=== PATIENT | male | born 1950 | race Caucasian/White ===

== ENCOUNTER 2023-06-12 17:39 | Inpatient (IN) | payer OTHER, SELFPAY ==
[2023-06-12] VITALS (48 sets, daily range): BP systolic 73–150; BP diastolic 43–86; PULSE 46–83; RESP 12–27; TEMP 34.8–35.7; O2SAT 82–100; BMI 30.6; BMI 28.0
--- NOTE | 2023-06-12 17:40 | EKG12_ITS ---
Test Reason : RESP. DISTRESS Blood Pressure : / mmHG Vent. Rate : 054 BPM Atrial Rate : 054 BPM P-R Int : 170 ms QRS Dur : 082 ms QT Int : 428 ms P-R-T Axes : 054 076 075 degrees QTc Int : 405 ms Sinus bradycardia Otherwise normal ECG Confirmed by Gregorio Galarza ([id number]), editorial manager OLGA LISA ([id number]) on 06/13/2023 11:00:28 AM Referred By: MANDO Confirmed By:Gregorio Galarza
--- NOTE | 2023-06-12 17:40 | CT_ITS ---
We are attempting to reach an attending provider to discuss findings. An addendum with communication details will be sent when the communication is complete. INDICATION: Neuro deficit, acute, stroke suspected EXAMINATION: CT BRAIN - CT Head Stroke Protocol W/O Contrast Injection TECHNIQUE: Multiple axial images were obtained of the head without intravenous contrast. A radiation dose optimization technique was used for this scan. IV Contrast dosage and agent: None. Radiation Dose (provided by facility) CTDIvol (NA ) mGy, DLP ( NA) mGy-cm COMPARISON: Not available FINDINGS: HEMISPHERES: 1. The cerebral parenchyma, ventricular system, subarachnoid spaces have normal configuration and density. There is a normal gyral pattern. There is normal guo/white differentiation. No midline shift.. 2. There are minimal chronic microvascular deep white matter changes. 3. No intraparenchymal mass, hemorrhage, or acute territorial infarct. CEREBELLUM - BRAINSTEM: The cerebellum, brainstem, basilar and suprasellar cisterns have normal appearance. No Chiari malformation. PITUITARY: Infundibulum and pituitary have normal configuration. Midline structures appear normal. VESSELS: 1. Moderate vascular calcifications throughout the cavernous carotid vessels. 2. No hyperdense vascular signs noted.. ORBITS AND PARANASAL SINUSES: 1. Normal appearance of the bony orbits. Normal appearance of the globes and retrobulbar soft tissues.. 2. Mucosal thickening in ethmoid and maxillary sinuses without air-fluid levels BONY ELEMENTS: Bony elements of the cranial vault, facial skeleton and skull base have normal appearance. SCALP AND SOFT TISSUES: Normal appearance of the soft tissues of the scalp and the visualized face OTHER: None CT/STROKE Brain/Head without Cont IMPRESSION: 1. Minimal chronic microvascular deep white matter changes. 2. No intracranial mass, hemorrhage or acute territorial infarct. 3. Mucosal thickening in the paranasal sinuses without air-fluid levels or nora sinus opacification. CRITICAL REPORT FINDINGS: No intracranial mass, hemorrhage or acute territorial infarct. Electronically Signed: Gagan Harvey MD at 17:55 EST ,
--- NOTE | 2023-06-12 17:41 | CT_ITS ---
INDICATION: Neuro deficit, acute, stroke suspected EXAMINATION: CTA HEAD - CTA Head and Neck Stroke W/ Contrast (and W/O if performed) TECHNIQUE: [place]/head CT angiogram protocol was performed following IV contrast. 3D reconstructions were reviewed. A radiation dose optimization technique was used for this scan. IV Contrast dosage and agent: 100 mL [id number]-[id number] Radiation Dose (provided by facility) CTDIvol (30.62 ) mGy, DLP ( 841.77) mGy-cm COMPARISON: : No relevant prior comparison study available FINDINGS: CTA [place]: PETROUS AND CAVERNOUS CAROTID ARTERIES: Diffuse vascular calcifications in the cavernous carotid vessels. No stenosis occlusion or aneurysmal dilatation. SUPRACLINOID CAROTID ARTERIES: Normal appearance the supraclinoid carotid vessels bilaterally, the visualized ophthalmic arteries have normal appearance. ANTERIOR CEREBRAL AND A- COMM: Normal appearance the proximal and distal segments of the anterior cerebral circulation bilaterally. MIDDLE CEREBRAL ARTERIES: Normal appearance the proximal and distal segments of the middle cerebral circulation bilaterally. Normal appearance of the M4 cortical distribution bilaterally. INTRACRANIAL VERTEBRAL ARTERIES AND BASILAR ARTERY: Normal appearance of the intracranial course of the vertebral arteries bilaterally, normal appearance of basilar artery to the level of the bifurcation. There are scattered calcifications in the vertebral arteries. POSTERIOR CEREBRAL ARTERIES: Normal appearance proximal distal segments of posterior cerebral circulation bilaterally. DURAL SINUSES: Normal, no filling defects noted CT HEAD: The cerebral parenchyma, ventricular system and gyral pattern have normal configuration. No areas of abnormal contrast enhancement. No evidence of hemorrhage given the limitation of postcontrast imaging. CTA Neck: TECHNIQUE: CTA examination of the neck obtained with standard protocol including axial postcontrast imaging with additional planar and three-dimensional reconstructions. Aortic arch: There is mild ectasia of the ascending aorta with transverse dimension estimated at approximately 3.8 cm. No dissection. Diffuse scattered calcifications are present. Normal appearance of the origin of the great vessels. Right carotid system: Moderate soft and calcified plaque at the RIGHT carotid bulb and bifurcation without stenosis or occlusion. Remaining RIGHT CCA and cervical ICA have normal caliber to the level of the skull base. No stenosis noted. Left carotid system: Moderate soft and calcified plaque at the bifurcation and LEFT carotid bulb without stenosis or luminal irregularity or occlusion. The remaining LEFT CCA and ICA have normal appearance. Vertebral arteries: There is normal appearance of the vertebral arteries bilaterally without focal stenosis or occlusion. Scattered calcifications are present without stenosis noted. Airway and soft tissues of the neck: There is normal appearance of the musculofascial planes of suprahyoid and infrahyoid neck. Normal appearance of the visualized airway. Normal appearance the visualized thyroid without masses or nodules noted. Cervical spine: Normal appearance of bony elements of the cervical spine. No focal stenosis or occlusion involving the cervical spinal canal. CT/STROKE CTA Head AND Neck W/Con IMPRESSION: 1. Moderate calcifications noted throughout the cavernous carotid vessels bilaterally. No evidence of stenosis occlusion or aneurysmal dilatation. 2. No CTA evidence of filling defects or LVO. 3. Moderate to extensive calcifications at the carotid bulbs bilaterally without hemodynamically significant stenosis noted in the cervical carotid or vertebral vessels bilaterally. 4. Mild ectasia of the ascending aorta with maximal transverse dimension of 3.7 cm. Electronically Signed: Gagan Harvey MD at 18:19 EST ,
--- NOTE | 2023-06-12 17:42 | ED.VIS.STROK ---
HPI History of Present Illness Chief Complaint: Stroke Alert Informant: EMS Narrative Narrative: Patient was seen acutely in the toney limited exam and history at this time. This patient evidently had a mechanical fall on Sunday. Hit his head but refused to come in. But he was reportedly okay and acting normally about 3:00 today. An hour later his checked on him in bed and he was not really responding. Family thought that he might have a little bit of weakness on the right side of his face. We are trying to get history at this time. We do not have med list past history etc. We then talked with the family more want and met the patient back in room 2. This patient fell on Sunday had a bruise on his head but did not lose consciousness. He had been complaining of some leg pain but was up getting around. But he chose not to go upstairs because it was sore. However, today he did go upstairs and sleep so he must have been doing better per the family. But when he tried to wake him up they could not wake him up. When asked he has been coughing more over the last few days or week. When the family members thoughts that sometimes he looks a little bit guo recently. I do not know if he has had pulmonary or heart issues. He is on blood pressure medicine. No anticoagulation. He has been exposed to agent orange as well as [place]. No information is available from the patient as he is essentially nonverbal. PFSH PFS Home Medications aspirin 81 mg capsule 81 mg PO DAILY 06/12/23 [History Last Taken Unknown] cholecalciferol (vitamin D3) 25 mcg (1,000 unit) capsule (Vitamin D3) 25 mcg PO DAILY 06/12/23 [History Last Taken Unknown] hydrochlorothiazide 12.5 mg tablet 12.5 mg PO DAILY 06/12/23 [History Last Taken Unknown] lisinopril 40 mg tablet 40 mg PO DAILY 06/12/23 [History Last Taken Unknown] metoprolol tartrate 50 mg tablet (Lopressor) 50 mg PO BID 06/12/23 [History Last Taken Unknown] Allergy/AdvReac Type Severity Reaction Status Date / Time No Known Allergies Allergy Verified 06/12/23 17:47 Social History Smoking Status: Current every day smoker tobacco type: cigarettes ROS ROS ED ROS Narrative Very limited history as the patient is nonverbal. Constitutional Constitutional ED: Denies fever(s) Respiratory/Chest Respiratory/Chest: Reports cough, dyspnea and other Details: Looking guo per some family members. Musculoskeletal Musculoskeletal: Reports other Details: Some lower extremity pain since his fall but he has been mobile and walking. Hematologic/Lymphatic Hematologic/Lymphatic: Denies easy bleeding or easy bruising EXAM Physical Exam Narrative Exam Narrative: General: Patient initially seen in triage. He is on O2 mask. He is moving extremities somewhat. But we wanted to expedite care as the report was he had acute onset neurologic deficit with some right facial droop. HEENT: No facial trauma. Mucous membranes are moist. Eyes: Pupils are quite small at 1 to 2 mm. But with a very bright light they do seem to be reactive. Neck is supple. There is no step-off felt. No visible JVD. Heart is regular. Lungs: Very tight. He does appear to have expiratory wheezing. Abdomen is soft. Mildly obese but not grossly distended. No abnormal bruising. Extremities are not showing any bruising or deformity. No pain with range of motion but the patient is not really responsive. Neuro: Really cannot do a good neurologic exam at this time as the patient is overall not responsive. He does withdrawal to some pain. All extremities do move. There is no obvious or gross lateralizing deficit. Const Vital Signs: 06/12/23 17:42 06/12/23 17:50 06/12/23 17:51 Temperature Temperature Source Pulse Rate 75 83 Respiratory Rate 20 H 22 H Respiratory Effort Respiratory Depth Respiratory Pattern Blood Pressure 144/58 H 116/61 Blood Pressure Mean 86 79 Blood Pressure Source Blood Pressure Position Blood Pressure Location Pulse Ox 96 82 Oxygen Delivery Method Non-Rebreather Non-Rebreather Non-Rebreather Fraction of Inspired Oxygen (FIO2) 06/12/23 17:58 06/12/23 18:05 06/12/23 18:00 Temperature 96.3 F L Temperature Source Temporal Pulse Rate 70 Respiratory Rate 14 14 Respiratory Effort Retracting Respiratory Depth Shallow Respiratory Pattern Gasping Blood Pressure 150/86 H Blood Pressure Mean 107 Blood Pressure Source Blood Pressure Position Blood Pressure Location Pulse Ox 100 100 100 Oxygen Delivery Method Mechanical Ventilator Mechanical Ventilator Fraction of Inspired Oxygen (FIO2) 100 100 06/12/23 18:22 06/12/23 18:40 06/12/23 19:00 Temperature Temperature Source Pulse Rate 60 Respiratory Rate 19 H 19 H Respiratory Effort Respiratory Depth Respiratory Pattern Blood Pressure 73/43 L Blood Pressure Mean 53 Blood Pressure Source Blood Pressure Position Blood Pressure Location Pulse Ox 100 96 97 Oxygen Delivery Method Mechanical Ventilator Mechanical Ventilator Fraction of Inspired Oxygen (FIO2) 30 50 50 06/12/23 18:30 06/12/23 18:10 06/12/23 19:08 Temperature Temperature Source Pulse Rate 78 70 57 L Respiratory Rate 15 16 20 H Respiratory Effort Respiratory Depth Respiratory Pattern Normal Blood Pressure Blood Pressure Mean Blood Pressure Source Blood Pressure Position Blood Pressure Location Pulse Ox 82 Oxygen Delivery Method Fraction of Inspired Oxygen (FIO2) 30 06/12/23 19:10 06/12/23 19:15 06/12/23 19:15 Temperature Temperature Source Pulse Rate 60 58 L Respiratory Rate 27 H 24 H Respiratory Effort Respiratory Depth Respiratory Pattern Blood Pressure 79/46 L Blood Pressure Mean 57 Blood Pressure Source Blood Pressure Position Blood Pressure Location Pulse Ox 100 100 98 Oxygen Delivery Method Fraction of Inspired Oxygen (FIO2) 50 06/12/23 19:21 06/12/23 19:30 06/12/23 19:40 Temperature Temperature Source Pulse Rate 57 L 58 L Respiratory Rate 15 16 Respiratory Effort Respiratory Depth Respiratory Pattern Blood Pressure 83/49 L Blood Pressure Mean 62 Blood Pressure Source Blood Pressure Position Blood Pressure Location Pulse Ox 99 95 97 Oxygen Delivery Method Fraction of Inspired Oxygen (FIO2) 06/12/23 19:45 06/12/23 19:50 06/12/23 20:00 Temperature Temperature Source Pulse Rate 56 L 58 L 57 L Respiratory Rate 18 20 H 27 H Respiratory Effort Respiratory Depth Respiratory Pattern Blood Pressure 84/55 L 91/68 Blood Pressure Mean 66 78 Blood Pressure Source Blood Pressure Position Blood Pressure Location Pulse Ox 95 97 82 Oxygen Delivery Method Fraction of Inspired Oxygen (FIO2) 06/12/23 20:15 06/12/23 20:15 06/12/23 20:23 Temperature Temperature Source Pulse Rate 58 L Respiratory Rate 15 Respiratory Effort Respiratory Depth Respiratory Pattern Blood Pressure 121/65 H 121/65 H Blood Pressure Mean 81 81 Blood Pressure Source Blood Pressure Position Blood Pressure Location Pulse Ox Oxygen Delivery Method Fraction of Inspired Oxygen (FIO2) 06/12/23 20:30 06/12/23 21:05 06/12/23 20:20 Temperature Temperature Source Pulse Rate 58 L 57 L 58 L Respiratory Rate 14 13 14 Respiratory Effort Respiratory Depth Respiratory Pattern Normal Blood Pressure 113/59 L Blood Pressure Mean 77 Blood Pressure Source Monitor Blood Pressure Position Semi-Fowlers Blood Pressure Location Right Arm Pulse Ox 94 94 Oxygen Delivery Method Mechanical Ventilator Fraction of Inspired Oxygen (FIO2) 40 06/12/23 21:20 06/12/23 20:30 06/12/23 20:40 Temperature Temperature Source Pulse Rate 55 L 58 L 56 L Respiratory Rate 14 14 14 Respiratory Effort Respiratory Depth Respiratory Pattern Blood Pressure 111/61 96/54 L Blood Pressure Mean 77 68 Blood Pressure Source Blood Pressure Position Blood Pressure Location Pulse Ox 91 95 Oxygen Delivery Method Mechanical Ventilator Fraction of Inspired Oxygen (FIO2) 06/12/23 20:45 06/12/23 20:50 06/12/23 21:00 Temperature Temperature Source Pulse Rate 55 L 57 L Respiratory Rate 13 13 Respiratory Effort Respiratory Depth Respiratory Pattern Blood Pressure 95/61 113/59 L Blood Pressure Mean 73 74 Blood Pressure Source Blood Pressure Position Blood Pressure Location Pulse Ox 94 93 Oxygen Delivery Method Fraction of Inspired Oxygen (FIO2) 06/12/23 21:00 06/12/23 21:00 06/12/23 21:10 Temperature Temperature Source Pulse Rate 57 L 56 L Respiratory Rate 12 13 Respiratory Effort Respiratory Depth Respiratory Pattern Blood Pressure 113/59 L 113/59 L Blood Pressure Mean 74 74 Blood Pressure Source Blood Pressure Position Blood Pressure Location Pulse Ox 93 Oxygen Delivery Method Fraction of Inspired Oxygen (FIO2) 06/12/23 21:15 06/12/23 21:20 06/12/23 21:30 Temperature Temperature Source Pulse Rate 56 L 55 L 56 L Respiratory Rate 14 14 13 Respiratory Effort Respiratory Depth Respiratory Pattern Blood Pressure 110/73 117/63 Blood Pressure Mean 86 79 Blood Pressure Source Blood Pressure Position Blood Pressure Location Pulse Ox 93 Oxygen Delivery Method Fraction of Inspired Oxygen (FIO2) 06/12/23 21:40 06/12/23 21:45 06/12/23 21:50 Temperature Temperature Source Pulse Rate 55 L 46 L 58 L Respiratory Rate 14 14 14 Respiratory Effort Respiratory Depth Respiratory Pattern Blood Pressure 111/61 Blood Pressure Mean 77 Blood Pressure Source Blood Pressure Position Blood Pressure Location Pulse Ox 93 92 Oxygen Delivery Method Fraction of Inspired Oxygen (FIO2) MDM MDM MDM Narrative Medical decision making narrative: Patient's respiratory status rapidly worsened here. He we tried him on Ambu. We could not get him to take deep breaths. This is due to overall global decrease in alertness and function. For this reason we needed to intubate him. He was intubated on first attempt with a 7 and half tube to 24 cm. None being heard over the abdomen. Good breath sounds bilaterally. Good easy Change and good saturations. He will be given DuoNeb treatments through the tube. Postintubation x-ray is pending. patient CBC shows low white count no hemoglobin but there is no old to compare to his indices are all low so there is may have a chronic component. Platelets are normal. Coagulation studies are normal. Electrolytes show mild elevation in creatinine 1.84. Sodium is bit low at 127. Liver function test showing no marked abnormalities. BNP was high at 483. Procalcitonin was normal. Urine showed no marked abnormality. Patient dropped his pressure here significantly. When we had intubated him he was fine. He actually started to wake up and needed significant sedation. Some of this pressure drop could have been due to sedation but he was still fighting against the ventilator a little bit. With his low hemoglobin, hypotension and recent trauma we did scan of his chest abdomen pelvis. There is some signs of contusion but no marked abnormality would explain his symptoms. Nor is there any sign of significant trauma. There is some sign of some bruising. I believe what happened as this patient likely has some COPD and CHF. Will he states he been having more trouble breathing since he had COVID. I think he got CO2 retention that just got out of hand. Cause further hypoventilation and then cause the symptoms. When we got him on the ventilator, we blew off the CO2 and he started to wake up. But he will need to be admitted. He has extensive laboratory abnormalities. He will have to be weaned. We also have very little information about his health care as he really does not share it with the family and we have no records here. Lab Data Attestation: I reviewed the patient's lab results. Labs: Laboratory Results - last 24 hr 06/12/23 06/12/23 06/12/23 16:44 18:07 18:40 WBC 4.2 L RBC 3.10 L Hgb 7.0 L Hct 24.5 L MCV 79.0 L MCH 22.6 L MCHC 28.6 L RDW Std Deviation 49.6 H RDW Coeff of Linda 17.2 H Plt Count 248 MPV 10.1 Immature Gran % (Auto) 0.200 Neut % (Auto) 66.1 Lymph % (Auto) 18.4 L [place] % (Auto) 14.6 H Eos % (Auto) 0.5 Baso % (Auto) 0.2 Absolute Neuts (auto) 2.8 Absolute Lymphs (auto) 0.78 L Nucleated RBC % 0 PT 17.0 H INR 1.4 APTT 35.5 Sodium 127 L Potassium 5.1 Chloride 87 L Carbon Dioxide 32.0 Anion Gap 8 BUN 49 H Creatinine 1.84 H Estim Creat Clear Calc 38.07 Est GFR (MDRD) Af Amer 46 L Est GFR (MDRD) Non-Af 38 L BUN/Creatinine Ratio 26.6 H Glucose 98 Calcium 7.8 L Total Bilirubin 0.30 AST 25 ALT 26 Alkaline Phosphatase 99 Total Creatine Kinase 100 Troponin I High Sens 31 B-Natriuretic Peptide 483.0 H Total Protein 6.0 L Albumin 3.1 L Globulin 2.9 Albumin/Globulin Ratio 1.1 Triglycerides 93 Procalcitonin 0.09 Urine Color Yellow Urine Clarity Cloudy Urine pH 5.0 Ur Specific [place] 1.020 Urine Protein 30 H Urine Glucose (UA) Normal Urine Ketones 5 H Urine Occult Blood 150 H Urine Nitrite Negative Urine Bilirubin Negative Urine Urobilinogen 1 H Ur Leukocyte Esterase 25 H Urine RBC 0-5 SEEN Urine WBC 5-10 SEEN Ur Squamous Epith Cells 5-10 SEEN Urine Bacteria RARE Urine Mucus 0 SEEN Blood Type Antibody Screen Crossmatch 06/12/23 19:00 WBC RBC Hgb Hct MCV MCH MCHC RDW Std Deviation RDW Coeff of [place] Plt Count MPV Immature Gran % (Auto) Neut % (Auto) Lymph % (Auto) [place] % (Auto) Eos % (Auto) Baso % (Auto) Absolute Neuts (auto) Absolute Lymphs (auto) Nucleated RBC % PT INR APTT Sodium Potassium Chloride Carbon Dioxide Anion Gap BUN Creatinine Estim Creat Clear Calc Est GFR (MDRD) Af Amer Est GFR (MDRD) Non-Af BUN/Creatinine Ratio Glucose Calcium Total Bilirubin AST ALT Alkaline Phosphatase Total Creatine Kinase Troponin I High Sens B-Natriuretic Peptide Total Protein Albumin Globulin Albumin/Globulin Ratio Triglycerides Procalcitonin Urine Color Urine Clarity Urine pH Ur Specific [place] Urine Protein Urine Glucose (UA) Urine Ketones Urine Occult Blood Urine Nitrite Urine Bilirubin Urine Urobilinogen Ur Leukocyte Esterase Urine RBC Urine WBC Ur Squamous Epith Cells Urine Bacteria Urine Mucus Blood Type O POSITIVE Antibody Screen NEGATIVE Crossmatch See Detail ABG Data ABG results: ABG 06/12/23 18:13 Specimen Type ART Sample Site Not entered pH 7.31 L Bicarbonate Actual 34.2 H Total CO2 36 Base Excess 8 H O2 Saturation 100 H O2 % 15.0 ABG pCO2 68.0 H* ABG pO2 487 H* O2 Delivery Device Bagging Vent Mode Not entered Crit Call To/Read Back Yes Blood Gas Notified Whom [email or web address] Blood Gas Notified Time 18:15:16 Radiography Diagnostic Testing: Clinical Impression(s) from Imaging Studies Brain CT 06/12/23 17:40 IMPRESSION: 1. Minimal chronic microvascular deep white matter changes. 2. No intracranial mass, hemorrhage or acute territorial infarct. 3. Mucosal thickening in the paranasal sinuses without air-fluid levels or nora sinus opacification. CRITICAL REPORT FINDINGS: No intracranial mass, hemorrhage or acute territorial infarct. Electronically Signed: Gagan Harvey MD at 17:55 EST , ADDENDUM: 06/12/23 1814 IMPRESSION: 1. Minimal chronic microvascular deep white matter changes. 2. No intracranial mass, hemorrhage or acute territorial infarct. 3. Mucosal thickening in the paranasal sinuses without air-fluid levels or nora sinus opacification. CRITICAL REPORT FINDINGS: No intracranial mass, hemorrhage or acute territorial infarct. N.B. : The above Results were Read Back by Gagan Harvey MD to Paz Hernandez RN, and understanding confirmed on 06/12/2023 18:07:25 (ET). Electronically Signed: Gagan Harvey MD at 17:55 EST , Head/Neck CTA 06/12/23 17:41 IMPRESSION: 1. Moderate calcifications noted throughout the cavernous carotid vessels bilaterally. No evidence of stenosis occlusion or aneurysmal dilatation. 2. No CTA evidence of filling defects or LVO. 3. Moderate to extensive calcifications at the carotid bulbs bilaterally without hemodynamically significant stenosis noted in the cervical carotid or vertebral vessels bilaterally. 4. Mild ectasia of the ascending aorta with maximal transverse dimension of 3.7 cm. Electronically Signed: Gagan Harvey MD at 18:19 EST , Chest X-Ray 06/12/23 18:32 IMPRESSION: 1. Status post intubation and nasogastric tube placement. 2. No active pulmonary disease. Electronically Signed: Harley Castillo MD at 18:44 EST , Chest/Abdomen/Pelvis CT 06/12/23 20:00 IMPRESSION: 1. Asymmetric anterior right lower chest and upper abdomen, subcutaneous stranding density may represent soft tissue contusion. No other evidence of acute traumatic injury chest, abdomen or pelvis solid or hollow viscus organs or osseous structures. 2. Small right pleural effusion and bilateral posterior dependent intralobular septal thickening and peribronchial thickening suggesting interstitial edema. Correlate for decreased heart function and/or possible volume overload. 3. Renal excretion of contrast with no reported intravenous contrast administration may represent delayed contrast excretion from prior contrasted dose. Correlate clinically. 4. Single gallstone with questionable gallbladder wall thickening. Correlate clinically and consider right upper quadrant ultrasound. 5. Significant abdominal aortic and branch vessel atherosclerosis. Electronically Signed: Gregorio Tello DO at 21:28 EST , Critical Care Time Critical Care Time: Yes Critical care time (excluding procedures): 30-74 minutes, Discussing w/Patient &/or Family/Credit Collections Analyst, Discussing w/Consultants, Arranging Admission or Transfer, Performing Direct Patient Care at Bedside and - (60 minutes, multiple reevaluations, arranging admission, reviewing studies labs) Discharge Plan Triage Chief Complaint: Stroke Alert ED Provider: Sarath Sosa Dx/Rx/DC Orders Clinical Impression: Creatinine elevation, Fall at home, Anemia, Respiratory failure, Hypotension, Airway intubation performed without difficulty Prescriptions: No Action metoprolol tartrate [Lopressor] 50 mg tablet 50 mg PO BID lisinopril 40 mg tablet 40 mg PO DAILY hydrochlorothiazide 12.5 mg tablet 12.5 mg PO DAILY aspirin 81 mg capsule 81 mg PO DAILY cholecalciferol (vitamin D3) [Vitamin D3] 25 mcg (1,000 unit) capsule 25 mcg PO DAILY [facility] [Primary Care Provider] - Disposition Disposition: Acute Care Hospital [facility]
--- NOTE | 2023-06-12 17:44 | NURSING ---
1724 STROKE ALERT CALLED PRIOR TO ARRIVAL
--- NOTE | 2023-06-12 17:47 | NURSING ---
NO OLD EKGS
[2023-06-12] MEDS: Etomidate 20 MG/10 ML Vial IV (17:58)
[2023-06-12] MEDS: Succinylcholine Chloride 200 MG/10 ML Vial 120 MG IV (17:59)
[2023-06-12] MEDS: Propofol 10MG/Ml 1,000 MG/100 ML Bottle 5.5 MG CONT INF (18:00)
[2023-06-12] MEDS: Ipratropium/Albuterol Sulfate 3 ML AMPUL.NEB INHALATION (18:10)
[2023-06-12 18:17] LABS: Base Excess 8 mmol/L (-2 to +2); Bicarbonate 34.2 mmol/L (22-26); Blood Gas Specimen Type ART; Mode Not entered; O2 Delivery Device Bagging; PO2 487 mmHG (75-100); SITE Not entered; SO2 100 % (95-99); Time Given 18:15:16; Total Carbon Dioxide 36 mmol/L; pH 7.31 (7.35-7.45)
[2023-06-12 18:19] LABS: Absolute Lymphocyte Count 0.78 X10^3/uL (0.83-4.51); Absolute Neutrophil Count 2.8 X10^3/uL (2.0-7.7); Basophil# 0.01 X10^3/uL; Basophil% 0.2 % (0-1); Eosinophil# 0.02 X10^3/uL; Eosinophils% 0.5 % (0-5); Hematocrit 24.5 % (40-54); Lymphocyte # 0.78 X10^3/ul (0.83-4.51); Lymphocyte % 18.4 % (19-41); Mean Corp Hgb Conc 28.6 g/dL (32-36); Mean Corpuscular Hgb 22.6 pg (27.0-32.0); Mean Platelet Vol. 10.1 fl (6.2-12.0); Monocyte# 0.62 X10^3/uL; Monocyte% 14.6 % (0-10); NRBC Flagged by Analyzer 0 % (0-5); Neutrophil % 66.1 % (47-70); Platelet Count 248 K/mm3 (150-450); RBC Distribution Width CV 17.2 % (11.6-14.6); RBC Distribution Width SD 49.6 fl (35.1-43.9); White Blood Count 4.2 K/mm3 (4.4-11.0)
--- NOTE | 2023-06-12 18:32 | RAD_ITS ---
INDICATION: Neuro deficit, acute, stroke suspected EXAMINATION/TECHNIQUE: X-RAY - XR Chest 1 View COMPARISON: No relevant prior comparison study available FINDINGS: LINES/DEVICES: Endotracheal tube with its tip approximately 7.7 cm proximal to the rafia. Nasogastric tube extends below the level of the diaphragm but the tip is not included on this exam. The sidehole is just within the gastric fundus. LUNGS: No consolidation, edema or effusion. No pneumothorax. MEDIASTINUM AND CARDIOVASCULAR STRUCTURES: Cardiac silhouette not enlarged. Central airways and mediastinal contour are unremarkable. BONES AND SOFT TISSUES: Unremarkable. RAD/Chest 1 View IMPRESSION: 1. Status post intubation and nasogastric tube placement. 2. No active pulmonary disease. Electronically Signed: Harley Castillo MD at 18:44 EST ,
[2023-06-12 18:34] LABS: ALB/GLOB Ratio 1.1 RATIO (0.9-2.4); AST(SGOT) 25 U/L (15-37); Alanine Aminotransfer ALT/SGPT 26 U/L (16-61); Albumin, Serum 3.1 g/dL (3.2-5.0); Alkaline Phosphatase 99 U/L (45-117); Anion Gap 8 (5-15); BUN 49 mg/dL (7-18); BUN/Creat Ratio 26.6 RATIO (10-20); Calcium,Total 7.8 mg/dL (8.5-10.1); Chloride 87 mmol/L (98-107); Creatinine, Serum 1.84 mg/dL (0.70-1.30); EST Glomerular Filtration Rate 38 mL/min (>60); Est Glom Filt Rate - Afr Amer 46 mL/min (>60); Estimated Creatinine Clearance 38.07 ml/min; Globulin 2.9 g/dL (2.2-4.2); Glucose 98 mg/dL (74-106); Potassium 5.1 mmol/L (3.5-5.1); Sodium Level 127 mmol/L (136-145); Troponin-I HS 31 pg/mL (3.0-78.0)
[2023-06-12 18:35] LABS: Partial Thromboplast Time 35.5 Seconds (24.1-36.2)
[2023-06-12 18:39] LABS: International Normalized Ratio 1.4
[2023-06-12 18:48] LABS: Mucous, Urine 0 SEEN /hpf (<or=2+)
[2023-06-12 18:51] LABS: Color, Urine Yellow (Yellow); Glucose, Dipstick Normal (Normal); Ketone-Dipstick 5 mg/dl (Negative); Leukocyte Esterase-Dipstick 25 /ul (Negative); Nitrite-Dipstick Negative (Negative); Occult Blood-Urine 150 /ul (Negative); Protein-Dipstick 30 mg/dl (Negative); Urine Bilirubin Dipstick Negative (Negative); Urine Clarity Cloudy (Clear); Urine Urobilinogen 1 mg/dl (Normal)
[2023-06-12 18:56] LABS: CPK Total, Creatine Kinase 100 U/L (39-308); Triglycerides 93 mg/dL
[2023-06-12] MEDS: fentaNYL drip 100 ML 5 MCG CONT INF (18:58)
[2023-06-12 19:06] LABS: White Blood Cells 5-10 SEEN /hpf (0-5)
[2023-06-12 19:07] LABS: Bacteria RARE /hpf (None Seen); Red Blood Cells-Urine 0-5 SEEN /hpf (0-5); Squamous Epithelial Cells - UA 5-10 SEEN /hpf (0-5)
--- NOTE | 2023-06-12 19:10 | ED.RN ---
ok to dc [facility] per dr hernandez
[2023-06-12] MEDS: 0.9% Normal Saline (1000mL) 1,000 ML 999 ML IV (19:15)
[2023-06-12 19:24] LABS: Procalcitonin 0.09 ng/mL (0.00-0.09)
--- NOTE | 2023-06-12 20:00 | CT_ITS ---
INDICATION: trauma EXAMINATION: CT CHEST, ABDOMEN AND PELVIS WITHOUT CONTRAST TECHNIQUE: Helically acquired images were obtained of the chest, abdomen and pelvis. A radiation dose optimization technique was used for this scan. IV Contrast dosage and agent: No intravenous contrast reported. Oral contrast: None. COMPARISON: CT angiography head and neck. Chest x-ray June 12, 2022. FINDINGS: ----Chest: Endotracheal tube and enteric tube, well-positioned. No central venous catheter visible. Right lower chest and upper abdomen subcutaneous asymmetric subcutaneous stranding density may represent contusion. No focal fluid collection. LUNGS, PLEURA AND LARGE AIRWAYS: Small layering right pleural effusion. There is right greater left, bilateral intralobular septal thickening and mild peribronchial thickening favored to represent interstitial edema, likely cardiogenic etiology. No pleural effusion or thickening. No pneumothorax. THYROID: No thyroid lesions. HEART AND PERICARDIUM: No significant enlargement. No pericardial effusion. Extensive coronary artery calcifications and/or stents. VESSELS: 4.7 cm diameter descending thoracic aorta measurement may be falsely elevated due to motion. MEDIASTINUM AND VIANEY: No mediastinal or hilar adenopathy. Esophagus is unremarkable. No hiatal hernia. BONES: No lytic or blastic abnormality. No fracture or focal malalignment. ----Abdomen/Pelvis: LIVER: Homogeneous. No focal mass. GALLBLADDER AND BILIARY TREE: Single stone, 4 mm in the neck of the gallbladder. Questionable mild gallbladder wall thickening. Consider correlation with ultrasound. No intra- or extrahepatic biliary ductal dilation. PANCREAS: No focal cystic or solid mass. [] SPLEEN: Normal size without focal cystic or solid mass. ADRENAL GLANDS: No nodules. KIDNEYS AND URETERS: Homogenous enhancement bilateral kidneys with excretion through the ureters and into the bladder with Portillo catheter in place. There is bladder wall thickening that may be partially due to collapse bladder. Cystitis less likely. Renal opacification may represent delayed excretion of previously given intravenous contrast. Correlate clinically. There is significant bilateral perinephric stranding, nonspecific finding typically seen in elderly patients. No focal fluid collection. PERITONEUM: No ascites or free air. No other fluid collection. BOWEL: No evidence of acute appendicitis. No stomach or bowel distension. No focal inflammatory change. LYMPH NODES: No enlarged mesenteric or retroperitoneal lymph nodes. VESSELS: Significant abdominal aortic and branch vessel calcifications especially involving the no artery ostia and splenic artery. REPRODUCTIVE ORGANS: No pelvic masses. No significant prostate enlargement. There is incompletely visualized, at least 4.4 cm focal fluid the right hemiscrotum. ABDOMINAL WALL: Small bilateral fat filled inguinal hernias are present. BONES: No lytic or blastic abnormality. No fracture or focal malalignment. Degenerative disc and endplate changes throughout the lumbar spine, most notably at L4-5 and L5-S1. There is at least a small posterior disc herniation at L4-5 and facet hypertrophy appears to result in at least moderate central spinal canal stenosis. CT/CT Chest, Abd, Pelvis WO Cont IMPRESSION: 1. Asymmetric anterior right lower chest and upper abdomen, subcutaneous stranding density may represent soft tissue contusion. No other evidence of acute traumatic injury chest, abdomen or pelvis solid or hollow viscus organs or osseous structures. 2. Small right pleural effusion and bilateral posterior dependent intralobular septal thickening and peribronchial thickening suggesting interstitial edema. Correlate for decreased heart function and/or possible volume overload. 3. Renal excretion of contrast with no reported intravenous contrast administration may represent delayed contrast excretion from prior contrasted dose. Correlate clinically. 4. Single gallstone with questionable gallbladder wall thickening. Correlate clinically and consider right upper quadrant ultrasound. 5. Significant abdominal aortic and branch vessel atherosclerosis. Electronically Signed: Gregorio Tello DO at 21:28 EST ,
--- NOTE | 2023-06-12 22:51 | HP.PCM.HOS_ITS ---
HPI - General General Date of Admission: 06/12/23 Date of Service: 06/12/23 Chief Complaint: SOB and Lethargy. 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 ER with SOB and lethargy. Mr. Muñiz was intubated shortly a fter arrival so information was gathered from chart, medical staff and computer. According to the records he was last known normal around 15:00 hours and then about an hour later his went to check in on him and found him unresponsive. His family also thought he looked like his Right face was drooping so they presumed he might be having a stroke. The ER physician was informed that he had fallen and his his head this past Thursday, June 08, 2023, but he refused to come in for further evaluation and treatment at that time. He did complain of some residual leg pain but was still able to get up and around. His family stated he had been coughing more over the past few days and that he appeared more guo over the past week. In the ER he was diagnosed with AE COPD with toxic encephalopathy due to CO2 Narcosis with acute hypoxic / hypercapnic respiratory failure requiring intubation with head CT negative for acute pathologic changes and low-index of suspicion for stroke with patient waking up shortly after being intubated requiring sedation complicated by mild hyponatremia of 127 mmol/L present on admission and he was then admitted to the ICU for ongoing care for a stay that is expected to be greater than 48 hours. [facility] Home Medications aspirin 81 mg capsule 81 mg PO DAILY 06/12/23 [History Last Taken Unknown] cholecalciferol (vitamin D3) 25 mcg (1,000 unit) capsule (Vitamin D3) 25 mcg PO DAILY 06/12/23 [History Last Taken Unknown] hydrochlorothiazide 12.5 mg tablet 12.5 mg PO DAILY 06/12/23 [History Last Taken Unknown] lisinopril 40 mg tablet 40 mg PO DAILY 06/12/23 [History Last Taken Unknown] metoprolol tartrate 50 mg tablet (Lopressor) 50 mg PO BID 06/12/23 [History Last Taken Unknown] Allergy/AdvReac Type Severity Reaction Status Date / Time No Known Allergies Allergy Verified 06/12/23 17:47 Social History Smoking Status: Current every day smoker tobacco type: cigarettes ROS ROS Narrative ROS could not be completed because patient is intubated and sedated. Review of Systems ROS Unobtainable: due to encephalopathy Vital Signs Vital Signs Vital Signs: 06/12/23 17:42 06/12/23 17:50 06/12/23 17:51 Temperature Temperature Source Pulse Rate 75 83 Respiratory Rate 20 H 22 H Respiratory Effort Respiratory Depth Respiratory Pattern Blood Pressure 144/58 H 116/61 Blood Pressure Mean 86 79 Blood Pressure Source Blood Pressure Position Blood Pressure Location Pulse Ox 96 82 Oxygen Delivery Method Non-Rebreather Non-Rebreather Non-Rebreather Fraction of Inspired Oxygen (FIO2) 06/12/23 17:58 06/12/23 18:05 06/12/23 18:00 Temperature 96.3 F L Temperature Source Temporal Pulse Rate 70 Respiratory Rate 14 14 Respiratory Effort Retracting Respiratory Depth Shallow Respiratory Pattern Gasping Blood Pressure 150/86 H Blood Pressure Mean 107 Blood Pressure Source Blood Pressure Position Blood Pressure Location Pulse Ox 100 100 100 Oxygen Delivery Method Mechanical Ventilator Mechanical Ventilator Fraction of Inspired Oxygen (FIO2) 100 100 06/12/23 18:22 06/12/23 18:40 06/12/23 19:00 Temperature Temperature Source Pulse Rate 60 Respiratory Rate 19 H 19 H Respiratory Effort Respiratory Depth Respiratory Pattern Blood Pressure 73/43 L Blood Pressure Mean 53 Blood Pressure Source Blood Pressure Position Blood Pressure Location Pulse Ox 100 96 97 Oxygen Delivery Method Mechanical Ventilator Mechanical Ventilator Fraction of Inspired Oxygen (FIO2) 30 50 50 06/12/23 18:30 06/12/23 18:10 06/12/23 19:08 Temperature Temperature Source Pulse Rate 78 70 57 L Respiratory Rate 15 16 20 H Respiratory Effort Respiratory Depth Respiratory Pattern Normal Blood Pressure Blood Pressure Mean Blood Pressure Source Blood Pressure Position Blood Pressure Location Pulse Ox 82 Oxygen Delivery Method Fraction of Inspired Oxygen (FIO2) 30 06/12/23 19:10 06/12/23 19:15 06/12/23 19:15 Temperature Temperature Source Pulse Rate 60 58 L Respiratory Rate 27 H 24 H Respiratory Effort Respiratory Depth Respiratory Pattern Blood Pressure 79/46 L Blood Pressure Mean 57 Blood Pressure Source Blood Pressure Position Blood Pressure Location Pulse Ox 100 100 98 Oxygen Delivery Method Fraction of Inspired Oxygen (FIO2) 50 06/12/23 19:21 06/12/23 19:30 06/12/23 19:40 Temperature Temperature Source Pulse Rate 57 L 58 L Respiratory Rate 15 16 Respiratory Effort Respiratory Depth Respiratory Pattern Blood Pressure 83/49 L Blood Pressure Mean 62 Blood Pressure Source Blood Pressure Position Blood Pressure Location Pulse Ox 99 95 97 Oxygen Delivery Method Fraction of Inspired Oxygen (FIO2) 06/12/23 19:45 06/12/23 19:50 06/12/23 20:00 Temperature Temperature Source Pulse Rate 56 L 58 L 57 L Respiratory Rate 18 20 H 27 H Respiratory Effort Respiratory Depth Respiratory Pattern Blood Pressure 84/55 L 91/68 Blood Pressure Mean 66 78 Blood Pressure Source Blood Pressure Position Blood Pressure Location Pulse Ox 95 97 82 Oxygen Delivery Method Fraction of Inspired Oxygen (FIO2) 06/12/23 20:15 06/12/23 20:15 06/12/23 20:23 Temperature Temperature Source Pulse Rate 58 L Respiratory Rate 15 Respiratory Effort Respiratory Depth Respiratory Pattern Blood Pressure 121/65 H 121/65 H Blood Pressure Mean 81 81 Blood Pressure Source Blood Pressure Position Blood Pressure Location Pulse Ox Oxygen Delivery Method Fraction of Inspired Oxygen (FIO2) 06/12/23 20:30 06/12/23 21:05 06/12/23 20:20 Temperature Temperature Source Pulse Rate 58 L 57 L 58 L Respiratory Rate 14 13 14 Respiratory Effort Respiratory Depth Respiratory Pattern Normal Blood Pressure 113/59 L Blood Pressure Mean 77 Blood Pressure Source Monitor Blood Pressure Position Semi-Fowlers Blood Pressure Location Right Arm Pulse Ox 94 94 Oxygen Delivery Method Mechanical Ventilator Fraction of Inspired Oxygen (FIO2) 40 06/12/23 21:20 06/12/23 20:30 06/12/23 20:40 Temperature Temperature Source Pulse Rate 55 L 58 L 56 L Respiratory Rate 14 14 14 Respiratory Effort Respiratory Depth Respiratory Pattern Blood Pressure 111/61 96/54 L Blood Pressure Mean 77 68 Blood Pressure Source Blood Pressure Position Blood Pressure Location Pulse Ox 91 95 Oxygen Delivery Method Mechanical Ventilator Fraction of Inspired Oxygen (FIO2) 06/12/23 20:45 06/12/23 20:50 06/12/23 21:00 Temperature Temperature Source Pulse Rate 55 L 57 L Respiratory Rate 13 13 Respiratory Effort Respiratory Depth Respiratory Pattern Blood Pressure 95/61 113/59 L Blood Pressure Mean 73 74 Blood Pressure Source Blood Pressure Position Blood Pressure Location Pulse Ox 94 93 Oxygen Delivery Method Fraction of Inspired Oxygen (FIO2) 06/12/23 21:00 02/13/24 21:00 06/12/23 21:10 Temperature Temperature Source Pulse Rate 57 L 56 L Respiratory Rate 12 13 Respiratory Effort Respiratory Depth Respiratory Pattern Blood Pressure 113/59 L 113/59 L Blood Pressure Mean 74 74 Blood Pressure Source Blood Pressure Position Blood Pressure Location Pulse Ox 93 Oxygen Delivery Method Fraction of Inspired Oxygen (FIO2) 06/12/23 21:15 06/12/23 21:20 06/12/23 21:30 Temperature Temperature Source Pulse Rate 56 L 55 L 56 L Respiratory Rate 14 14 13 Respiratory Effort Respiratory Depth Respiratory Pattern Blood Pressure 110/73 117/63 Blood Pressure Mean 86 79 Blood Pressure Source Blood Pressure Position Blood Pressure Location Pulse Ox 93 Oxygen Delivery Method Fraction of Inspired Oxygen (FIO2) 06/12/23 21:40 06/12/23 21:45 06/12/23 21:50 Temperature Temperature Source Pulse Rate 55 L 46 L 58 L Respiratory Rate 14 14 14 Respiratory Effort Respiratory Depth Respiratory Pattern Blood Pressure 111/61 Blood Pressure Mean 77 Blood Pressure Source Blood Pressure Position Blood Pressure Location Pulse Ox 93 92 Oxygen Delivery Method Fraction of Inspired Oxygen (FIO2) Weight Weight: 201 lb 8.04 oz Body Mass Index (BMI) 30.6 Physical Exam Const Constitutional Narrative: Patient is intubated and sedated. HEENT normocephalic, head/scalp atraumatic and hearing grossly normal bilaterally HEENT Narrative: ETT in place. Eyes PERRL and EOMs intact bilaterally Neck no lymphadenopathy and supple Resp Resp Narrative: Diminished breath sounds throughout. Cardio regular rate and regular rhythm GI normal to inspection, nondistended, normoactive bowel sounds, soft to palpation, non-tender and non-distended Extremity normal to inspection and full ROM Skin Skin Narrative: Patient has no evidence of rash at this time. Neuro Neuro Narrative: Patient is sedated and intubated. Psych Psych Narrative: Patient is sedated and intubated. Results Medical Records Data Attestation: I reviewed the patient's medical records Lab / Micro Data Attestation: I reviewed the patient's lab results. 06/12/23 18:07 06/12/23 18:07 Labs: Laboratory Results - last 24 hr 06/12/23 16:44: Procalcitonin 0.09 06/12/23 18:07: WBC 4.2 L, RBC 3.10 L, Hgb 7.0 L, Hct 24.5 L, MCV 79.0 L, MCH 22.6 L, MCHC 28.6 L, RDW Std Deviation 49.6 H, RDW Coeff of [place] 17.2 H, Plt Count 248, MPV 10.1, Immature Gran % (Auto) 0.200, Neut % (Auto) 66.1, Lymph % (Auto) 18.4 L, [place] % (Auto) 14.6 H, Eos % (Auto) 0.5, Baso % (Auto) 0.2, Absolute Neuts (auto) 2.8, Absolute Lymphs (auto) 0.78 L, Nucleated RBC % 0, PT 17.0 H, INR 1.4, APTT 35.5, Sodium 127 L, Potassium 5.1, Chloride 87 L, Carbon Dioxide 32.0, Anion Gap 8, BUN 49 H, Creatinine 1.84 H, Estim Creat Clear Calc 38.07, Est GFR (MDRD) Af Amer 46 L, Est GFR (MDRD) Non-Af 38 L, BUN/Creatinine Ratio 26.6 H, Glucose 98, Calcium 7.8 L, Total Bilirubin 0.30, AST 25, ALT 26, Alkaline Phosphatase 99, Total Creatine Kinase 100, Troponin I High Sens 31, B- Natriuretic Peptide 483.0 H, Total Protein 6.0 L, Albumin 3.1 L, Globulin 2.9, Albumin/Globulin Ratio 1.1, Triglycerides 93 06/12/23 18:40: Urine Color Yellow, Urine Clarity Cloudy, Urine pH 5.0, Ur Specific [place] 1.020, Urine Protein 30 H, Urine Glucose (UA) Normal, Urine Ketones 5 H, Urine Occult Blood 150 H, Urine Nitrite Negative, Urine Bilirubin Negative, Urine Urobilinogen 1 H, Ur Leukocyte Esterase 25 H, Urine RBC 0-5 SEEN, Urine WBC 5-10 SEEN, Ur Squamous Epith Cells 5-10 SEEN, Urine Bacteria RARE, Urine Mucus 0 SEEN 06/12/23 19:00: Blood Type O POSITIVE, Antibody Screen NEGATIVE, Crossmatch See Detail Micro: Microbiology 06/12/23 18:37 Mucosa - Nasopharyngeal SARS-CoV-2, Influenza & RSV (PCR) - Final ABG Data ABG results: ABG 06/12/23 18:13 Specimen Type ART Sample Site Not entered pH 7.31 L Bicarbonate Actual 34.2 H Total CO2 36 Base Excess 8 H O2 Saturation 100 H O2 % 15.0 ABG pCO2 68.0 H* ABG pO2 487 H* O2 Delivery Device Bagging Vent Mode Not entered Crit Call To/Read Back Yes Blood Gas Notified Whom mary Blood Gas Notified Time 18:15:16 Imaging Radiology Impression Brain CT 06/12/23 17:40 IMPRESSION: 1. Minimal chronic microvascular deep white matter changes. 2. No intracranial mass, hemorrhage or acute territorial infarct. 3. Mucosal thickening in the paranasal sinuses without air-fluid levels or nora sinus opacification. CRITICAL REPORT FINDINGS: No intracranial mass, hemorrhage or acute territorial infarct. Electronically Signed: Gagan Harvey MD at 17:55 EST , ADDENDUM: 06/12/23 1814 IMPRESSION: 1. Minimal chronic microvascular deep white matter changes. 2. No intracranial mass, hemorrhage or acute territorial infarct. 3. Mucosal thickening in the paranasal sinuses without air-fluid levels or nora sinus opacification. CRITICAL REPORT FINDINGS: No intracranial mass, hemorrhage or acute territorial infarct. N.B. : The above Results were Read Back by Gagan Harvey MD to Paz Hernandez RN, and understanding confirmed on 06/12/2023 18:07:25 (ET). Electronically Signed: Gagan Harvey MD at 17:55 EST , Head/Neck CTA 06/12/23 17:41 IMPRESSION: 1. Moderate calcifications noted throughout the cavernous carotid vessels bilaterally. No evidence of stenosis occlusion or aneurysmal dilatation. 2. No CTA evidence of filling defects or LVO. 3. Moderate to extensive calcifications at the carotid bulbs bilaterally without hemodynamically significant stenosis noted in the cervical carotid or vertebral vessels bilaterally. 4. Mild ectasia of the ascending aorta with maximal transverse dimension of 3.7 cm. Electronically Signed: Gagan Harvey MD at 18:19 EST , Chest X-Ray 06/12/23 18:32 IMPRESSION: 1. Status post intubation and nasogastric tube placement. 2. No active pulmonary disease. Electronically Signed: Harley Castillo MD at 18:44 EST , Chest/Abdomen/Pelvis CT 06/12/23 20:00 IMPRESSION: 1. Asymmetric anterior right lower chest and upper abdomen, subcutaneous stranding density may represent soft tissue contusion. No other evidence of acute traumatic injury chest, abdomen or pelvis solid or hollow viscus organs or osseous structures. 2. Small right pleural effusion and bilateral posterior dependent intralobular septal thickening and peribronchial thickening suggesting interstitial edema. Correlate for decreased heart function and/or possible volume overload. 3. Renal excretion of contrast with no reported intravenous contrast administration may represent delayed contrast excretion from prior contrasted dose. Correlate clinically. 4. Single gallstone with questionable gallbladder wall thickening. Correlate clinically and consider right upper quadrant ultrasound. 5. Significant abdominal aortic and branch vessel atherosclerosis. Electronically Signed: Gregorio Tello DO at 21:28 EST , Assessment & Plan Assessment/Plan (1) Acute exacerbation of COPD with asthma: (2) Acute hypoxic respiratory failure: (3) Hyponatremia: (4) Anemia: QUALIFIERS: Anemia type: unspecified type Qualified Code(s): D64.9 - Anemia, unspecified PLAN: Plan 1. AE COPD; with severe CO2 Narcosis - Admit to ICU. Continue vent support and consult material attendant to see patient on-rounds in the AM with help appreciated in advance. Give IV Solumedrol, IV Zosyn and prn nebulizers. Recheck ABG in the AM to help with weaning process. 2. Acute Hypoxic / Hypercapnic respiratory failure requiring intubation due to #1 - Wean vent as tolerated. 3. Mild hyponatremia of 127 mmol/L present on admission likely due to Adverse Drug Reaction to HCTZ - Give NS IVF and stop HCTZ. 4. Anemia with hemoglobin of 7 g/dL present on admission - Check daily CBC. Type and screen blood. 6. Essential hypertension - Give IV Hydralazine prn for systolic blood pressure > 160 mm Hg. 7. Obesity; with BMI of 30.6 this admission - Weight loss will be recommended. Check TSH. 8. Tobacco abuse; with subsequent COPD - Tobacco abuse will be discouraged when he is extubated. 9. 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 10. OA - Stable. Give Tylenol prn. 11. DVT prophylaxis - Lovenox 40 mg sq daily plus SCD's. Total time: Approximately 55 minutes. Charges/Coding Visit Charges Inpatient E&M: 07353 Init Hosp L2
[2023-06-12] MEDS: Propofol 10MG/Ml 1,000 MG/100 ML Bottle 19.1999999999999993 MG CONT INF (23:05)
[2023-06-13] VITALS (39 sets, daily range): BP systolic 100–130; BP diastolic 45–71; PULSE 60–83; RESP 14–16; TEMP 35–37.6; O2SAT 87–100; BMI 28.3
[2023-06-13] MEDS: 0.9% Saline Lock 10 ML Syringe IV (00:06)
[2023-06-13] MEDS: Albuterol 2.5 MG/3 ML VIAL.NEB. INHALATION ×2 (00:06→03:46)
[2023-06-13] MEDS: 0.9% Normal Saline (1000mL) 1,000 ML 70 ML IV (00:08)
[2023-06-13] MEDS: MethylPREDNISolone 125 MG/2 ML Vial IV (00:09)
[2023-06-13 00:32] LABS: Osmolality, Serum 287 mOsm/KG (280-301); Osmolality, Urine 417 mOsm/KG
[2023-06-13] MEDS: Propofol 10MG/Ml 1,000 MG/100 ML Bottle 27.3999999999999986 MG CONT INF ×2 (03:28→06:40)
[2023-06-13] MEDS: CHLORHEXIDINE GLUC 2% CLOTH 1 EACH TOWELETTE TOPICAL (03:37)
[2023-06-13 04:01] LABS: Absolute Lymphocyte Count 0.14 X10^3/uL (0.83-4.51); Absolute Neutrophil Count 4.9 X10^3/uL (2.0-7.7); Eosinophil# 0.01 X10^3/uL; Eosinophils% 0.2 % (0-5); Hematocrit 26.4 % (40-54); Lymphocyte # 0.14 X10^3/ul (0.83-4.51); Lymphocyte % 2.7 % (19-41); Mean Corp Hgb Conc 30.3 g/dL (32-36); Mean Corpuscular Hgb 23.2 pg (27.0-32.0); Mean Corpuscular Volume 76.5 fL (80-94); Monocyte# 0.22 X10^3/uL; Monocyte% 4.2 % (0-10); NRBC Flagged by Analyzer 0 % (0-5); Neutrophil # 4.85 X10^3/uL (2.7-7.7); Neutrophil % 92.1 % (47-70); POSITIVE DIFFERENTIAL YES; Platelet Count 223 K/mm3 (150-450); RBC Distribution Width CV 17.4 % (11.6-14.6); RBC Distribution Width SD 47.9 fl (35.1-43.9); Red Blood Count 3.45 M/mm3 (4.6-6.2); White Blood Count 5.3 K/mm3 (4.4-11.0)
[2023-06-13 04:32] LABS: Anion Gap 8 (5-15); BUN 47 mg/dL (7-18); BUN/Creat Ratio 30.9 RATIO (10-20); Calcium,Total 7.6 mg/dL (8.5-10.1); Chloride 89 mmol/L (98-107); Creatinine, Serum 1.52 mg/dL (0.70-1.30); EST Glomerular Filtration Rate 48 mL/min (>60); Est Glom Filt Rate - Afr Amer 58 mL/min (>60); Estimated Creatinine Clearance 47.06 ml/min; Glucose 97 mg/dL (74-106); Phosphorus 5.7 mg/dL (2.5-4.9); Potassium 4.3 mmol/L (3.5-5.1); Sodium Level 131 mmol/L (136-145)
[2023-06-13] MEDS: Piperacil/Tazobactam 3.375 GM in 0.9% Normal Saline (50mL MB+) 50 ML IV ×3 (05:11→20:45)
[2023-06-13 05:48] LABS: Allen Test Positive; Base Excess 6 mmol/L (-2 to +2); Bicarbonate 31.5 mmol/L (22-26); Blood Gas Specimen Type ART; Mode AC; O2 Delivery Device Adult Vent; PEEP 5; PO2 68 mmHG (75-100); RR 14; SITE L Radial; SO2 91 % (95-99); Total Carbon Dioxide 33 mmol/L; pCO2 60.1 mmHg (35-45); pH 7.33 (7.35-7.45)
--- NOTE | 2023-06-13 05:55 | RAD_ITS ---
EXAM: XR CHEST, 1 VIEW CLINICAL INDICATION: AE COPD TECHNIQUE: Frontal view of the chest. COMPARISON: 06/12/2023. FINDINGS: LUNGS AND PLEURAL SPACES: Low lung volumes limit the exam. No consolidations. No pneumothorax. No effusion. HEART: Unremarkable. Cardiac silhouette not enlarged. MEDIASTINUM: Central airways and mediastinal contour are unremarkable. BONES/JOINTS: Unremarkable. No acute fracture. SOFT TISSUES: Unremarkable. TUBES, LINES AND DEVICES: Endotracheal tube tip is 5.8 cm above the rafia. NG tube is in the stomach. RAD/Chest 1 View (Portable) IMPRESSION: 1. Endotracheal tube tip is 5.8 cm above the rafia. 2. NG tube is in the stomach. 3. Low lung volumes limit the exam. No consolidations. 4. No acute cardiopulmonary abnormality. Electronically Signed: Gregorio Raymundo MD at 5:42 EST ,
[2023-06-13] MEDS: TITRATION PARAMETER CHANGE 1 EACH IV (05:58)
--- NOTE | 2023-06-13 06:20 | CPS ---
Tube advanced from 23cm to 25cm at the lip, per Dr. Rothman.
--- NOTE | 2023-06-13 07:11 | EX.PCM.CONCC ---
Assessment & Plan Assessment/Plan (1) Acute hypoxic respiratory failure: (2) Fall at home: QUALIFIERS: Encounter type: initial encounter Qualified Code(s): W19.XXXA - Unspecified fall, initial encounter; Y92.009 - Unspecified place in unspecified non-institutional (private) residence as the place of occurrence of the external cause PLAN: Plan RECOMMENDATIONS: 1. Continue bronchodilators, empiric steroids and IV Zosyn 2. Obtain panculture with viral panel 3. Initiate empiric thiamine and folate 4. Continue PPI and monitor blood counts daily 5. Clarify baseline medical status when family arrives IMPRESSIONS: 1. Acute on chronic hypercarbic respiratory failure secondary to presumed COPD exacerbation Patient does have an area of bronchiectasis in the lingular area, but does not have significant emphysematous changes. However, patient appears to have CO2 retention at baseline with a bicarbonate compensation. Clinical suspicion is patient has not been evaluated for obstructive lung disease leading to a lack of diagnosis. Will empirically start steroids, bronchodilators and antibiotics. Spontaneous breathing and awakening trials per protocol. 2. Anemia/hyponatremia Unclear etiology. Patient did receive 2 units of packed red blood cells, but failed to increment appropriately. Will attempt to verify social history, but some concern for possible excessive alcohol leading to findings. No bowel movements at this time make significant GI bleed less likely. Patient is on a PPI. 3. 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 Patient reportedly is a full code per hospitalist note. Cannot verify with family. Patient has been taken off of hydrochlorothiazide secondary to hyponatremia. Patient may have an element of hypotension associated with the use of propofol. Will continue to monitor. TIME: 35 minutes critical care time spent addressing patient's acute respiratory failure, anemia, hyponatremia, review of all data and collaboration with care team HPI Consult Data Date of Consult: 06/13/23 HPI Narrative HPI Narrative: MARK MUÑIZ is a 73 M, with past medical history listed below, who presents to [facility] on 06/12/2023 secondary to facial droop and decreased responsiveness. Patient reportedly had fallen on Sunday and hit his head, but refused to go for an evaluation. Patient then checked on by his and was not really responding. Family did not believe that he had lost consciousness, but given his inability to wake up he was brought to the ER for evaluation. Patient reportedly has had a cough over the last week and some family members had noted a great complexion. Patient does not have any history of pulmonary or heart issues that anyone was aware of. In the ER, quiring a nonrebreather to maintain saturations. Patient initially was a stroke team, but this was discontinued after noting his respiratory status. Patient was afebrile, but initially gasping on presentation. An ABG was obtained showing hypercarbic respiratory failure. Patient was rapidly intubated to stabilize the condition. Patient did have some postprocedural hypotension. Laboratory workup showed a white blood cell count of 4.2, hemoglobin of 7, platelets of 248 and an INR of 1.4. Chemistries showed a BUN of 49, creatinine of 1.84 and a sodium of 127. Liver function studies were relatively unremarkable. Procalcitonin was negative, but BNP was elevated at 483. UA did have some increased leukocyte esterase, occult blood and white blood cells noted. A CT of the head showed no intracranial mass, hemorrhage or acute territorial infarct. Patient did have some mucosal thickening in the sinuses. A CTA of the head neck showed moderate calcifications but no acute infarct. A CT of the chest abdomen pelvis did show a very small right pleural effusion with lingular bronchiectasis and some mild right lower lobe infiltrate. Patient was given 1 L of IV fluids and then admitted to the intensive care unit for further evaluation. Since being in the intensive care unit, patient has been initiated on propofol and fentanyl. Patient does have intermittent dyssynchrony associated with patient care. Respiratory has reported significant secretions noted. Patient did receive 2 units of packed red blood cells, but has not had a bowel movement. Patient did have some dark OG secretions noted. Unable to obtain review of systems secondary to intubation and no family at the bedside. [facility] Home Medications aspirin 81 mg capsule 81 mg PO DAILY 06/12/23 [History Last Taken Unknown] cholecalciferol (vitamin D3) 25 mcg (1,000 unit) capsule (Vitamin D3) 25 mcg PO DAILY 06/12/23 [History Last Taken Unknown] hydrochlorothiazide 12.5 mg tablet 12.5 mg PO DAILY 06/12/23 [History Last Taken Unknown] lisinopril 40 mg tablet 40 mg PO DAILY 06/12/23 [History Last Taken Unknown] metoprolol tartrate 50 mg tablet (Lopressor) 50 mg PO BID 06/12/23 [History Last Taken Unknown] Allergy/AdvReac Type Severity Reaction Status Date / Time No Known Allergies Allergy Verified 06/12/23 17:47 Social History Smoking Status: Current every day smoker tobacco type: cigarettes ROS Review of Systems ROS Unobtainable: due to mental status Physical Exam Const Constitutional Narrative: Patient is intubated and sedated. Good vent synchrony noted General Appearance: patient mechanically ventilated HEENT normocephalic, head/scalp atraumatic and hearing grossly normal bilaterally HEENT Narrative: ETT/OG in place. Telangiectasias noted on the nose. Eyes PERRL, EOMs intact bilaterally and no scleral icterus Neck no lymphadenopathy and supple Resp Auscultation: wheezes throughout and diminished lung sounds; Negative for rales or rhonchi Cardio regular rate, regular rhythm, S1 normal heart sound, S2 normal heart sound, no murmurs, no rub and no gallops GI normal to inspection, nondistended, normoactive bowel sounds, soft to palpation, non-tender and non-distended Extremity normal to inspection and full ROM Skin Skin Narrative: Scattered telangiectasias noted. Neuro Sensorium / Orientation: sedated on vent RASS: -2 Psych Mood & Affect: flat affect Medical Records Data Attestation: I reviewed the patient's medical records Medical records narrative: Patient does not have any pulmonary function test or echocardiogram available for review. Lab / Micro Data Attestation: I reviewed the patient's lab results. Lab results narrative: Patient did receive 2 units of packed red blood cells with only 1 g increase in hemoglobin 06/13/23 03:40 06/13/23 03:40 Labs: Laboratory Results - last 24 hr 06/12/23 16:44: Procalcitonin 0.09 06/12/23 18:07: WBC 4.2 L, RBC 3.10 L, Hgb 7.0 L, Hct 24.5 L, MCV 79.0 L, MCH 22.6 L, MCHC 28.6 L, RDW Std Deviation 49.6 H, RDW Coeff of Linda 17.2 H, Plt Count 248, MPV 10.1, Immature Gran % (Auto) 0.200, Neut % (Auto) 66.1, Lymph % (Auto) 18.4 L, [place] % (Auto) 14.6 H, Eos % (Auto) 0.5, Baso % (Auto) 0.2, Absolute Neuts (auto) 2.8, Absolute Lymphs (auto) 0.78 L, Nucleated RBC % 0, PT 17.0 H, INR 1.4, APTT 35.5, Sodium 127 L, Potassium 5.1, Chloride 87 L, Carbon Dioxide 32.0, Anion Gap 8, BUN 49 H, Creatinine 1.84 H, Estim Creat Clear Calc 38.07, Est GFR (MDRD) Af Amer 46 L, Est GFR (MDRD) Non-Af 38 L, BUN/Creatinine Ratio 26.6 H, Glucose 98, Calcium 7.8 L, Total Bilirubin 0.30, AST 25, ALT 26, Alkaline Phosphatase 99, Total Creatine Kinase 100, Troponin I High Sens 31, B-Natriuretic Peptide 483.0 H, Total Protein 6.0 L, Albumin 3.1 L, Globulin 2.9, Albumin/Globulin Ratio 1.1, Triglycerides 93 06/12/23 18:40: Urine Color Yellow, Urine Clarity Cloudy, Urine pH 5.0, Ur Specific [place] 1.020, Urine Protein 30 H, Urine Glucose (UA) Normal, Urine Ketones 5 H, Urine Occult Blood 150 H, Urine Nitrite Negative, Urine Bilirubin Negative, Urine Urobilinogen 1 H, Ur Leukocyte Esterase 25 H, Urine RBC 0-5 SEEN, Urine WBC 5-10 SEEN, Ur Squamous Epith Cells 5-10 SEEN, Urine Bacteria RARE, Urine Mucus 0 SEEN 06/12/23 19:00: Blood Type O POSITIVE, Antibody Screen NEGATIVE, Crossmatch See Detail 06/12/23 23:50: Serum Osmolality 287, Urine Osmolality 417 06/13/23 03:40: WBC 5.3, RBC 3.45 L, Hgb 8.0 L, Hct 26.4 L, MCV 76.5 L, MCH 23.2 L, MCHC 30.3 L D, RDW Std Deviation 47.9 H, RDW Coeff of [place] 17.4 H, Plt Count 223, MPV 10.0, Immature Gran % (Auto) 0.800, Neut % (Auto) 92.1 H, Lymph % (Auto) 2.7 L, [place] % (Auto) 4.2, Eos % (Auto) 0.2, Baso % (Auto) 0.0, Absolute Neuts (auto) 4.9, Absolute Lymphs (auto) 0.14 L, Nucleated RBC % 0, Sodium 131 L, Potassium 4.3, Chloride 89 L, Carbon Dioxide 34.0 H, Anion Gap 8, BUN 47 H, Creatinine 1.52 H, Estim Creat Clear Calc 47.06, Est GFR (MDRD) Af Amer 58 L, Est GFR (MDRD) Non-Af 48 L, BUN/Creatinine Ratio 30.9 H, Glucose 97, Calcium 7.6 L, Phosphorus 5.7 H, Magnesium 2.0, TSH 0.70 Micro: Microbiology 06/12/23 18:37 Mucosa - Nasopharyngeal SARS-CoV-2, Influenza & RSV (PCR) - Final ABG Data ABG results: ABG 06/12/23 06/13/23 18:13 05:43 Specimen Type ART ART Sample Site Not entered L Radial pH 7.31 L 7.33 L Bicarbonate Actual 34.2 H 31.5 H Total CO2 36 33 Base Excess 8 H 6 H O2 Saturation 100 H 91 L O2 % 15.0 35.0 ABG pCO2 68.0 H* 60.1 H ABG pO2 487 H* 68 L Henrik Test Positive Respiration Rate 14 O2 Delivery Device Bagging Adult Vent Vent Mode Not entered AC Tidal Volume 450.0 POC PEEP 5 Crit Call To/Read Back Yes Blood Gas Notified Whom [facility] Blood Gas Notified Time 18:15:16 Attestation: I personally reviewed and interpreted this ABG as follows: (Partially compensated acute on chronic respiratory acidosis with increased AA gradient) Imaging Radiology Impression Brain CT 06/12/23 17:40 IMPRESSION: 1. Minimal chronic microvascular deep white matter changes. 2. No intracranial mass, hemorrhage or acute territorial infarct. 3. Mucosal thickening in the paranasal sinuses without air-fluid levels or nora sinus opacification. CRITICAL REPORT FINDINGS: No intracranial mass, hemorrhage or acute territorial infarct. Electronically Signed: Gagan Harvey MD at 17:55 EST , ADDENDUM: 06/12/23 1814 IMPRESSION: 1. Minimal chronic microvascular deep white matter changes. 2. No intracranial mass, hemorrhage or acute territorial infarct. 3. Mucosal thickening in the paranasal sinuses without air-fluid levels or nora sinus opacification. CRITICAL REPORT FINDINGS: No intracranial mass, hemorrhage or acute territorial infarct. N.B. : The above Results were Read Back by Gagan Harvey MD to Paz Hernandez RN, and understanding confirmed on 06/12/2023 18:07:25 (ET). Electronically Signed: Gagan Harvey MD at 17:55 EST , Head/Neck CTA 06/12/23 17:41 IMPRESSION: 1. Moderate calcifications noted throughout the cavernous carotid vessels bilaterally. No evidence of stenosis occlusion or aneurysmal dilatation. 2. No CTA evidence of filling defects or LVO. 3. Moderate to extensive calcifications at the carotid bulbs bilaterally without hemodynamically significant stenosis noted in the cervical carotid or vertebral vessels bilaterally. 4. Mild ectasia of the ascending aorta with maximal transverse dimension of 3.7 cm. Electronically Signed: Gagan Harvey MD at 18:19 EST , Chest X-Ray 06/12/23 18:32 IMPRESSION: 1. Status post intubation and nasogastric tube placement. 2. No active pulmonary disease. Electronically Signed: Harley Castillo MD at 18:44 EST , Chest/Abdomen/Pelvis CT 06/12/23 20:00 IMPRESSION: 1. Asymmetric anterior right lower chest and upper abdomen, subcutaneous stranding density may represent soft tissue contusion. No other evidence of acute traumatic injury chest, abdomen or pelvis solid or hollow viscus organs or osseous structures. 2. Small right pleural effusion and bilateral posterior dependent intralobular septal thickening and peribronchial thickening suggesting interstitial edema. Correlate for decreased heart function and/or possible volume overload. 3. Renal excretion of contrast with no reported intravenous contrast administration may represent delayed contrast excretion from prior contrasted dose. Correlate clinically. 4. Single gallstone with questionable gallbladder wall thickening. Correlate clinically and consider right upper quadrant ultrasound. 5. Significant abdominal aortic and branch vessel atherosclerosis. Electronically Signed: Gregorio Tello DO at 21:28 EST , Chest X-Ray 06/13/23 05:55 IMPRESSION: 1. Endotracheal tube tip is 5.8 cm above the rafia. 2. NG tube is in the stomach. 3. Low lung volumes limit the exam. No consolidations. 4. No acute cardiopulmonary abnormality. Electronically Signed: Gregorio Raymundo MD at 5:42 EST , Endotracheal tube has been moved into centimeters since chest x-ray completed on 06/13/2023 at 5:55 AM
[2023-06-13] MEDS: fentaNYL drip 100 ML 7.5 MCG CONT INF (07:25)
[2023-06-13] MEDS: Chlorhexidine 15 ML PO ×2 (08:01→20:45)
[2023-06-13] MEDS: Cholecalciferol (VIT D3) 25 MCG TABLET (1,000 UNITS) PO (08:01)
[2023-06-13] MEDS: Aspirin 81 MG TAB.CHEW PO (08:01)
[2023-06-13] MEDS: Folic Acid 1 MG Tablet PO (08:01)
[2023-06-13] MEDS: Thiamine Hydrochloride 100 MG Tablet PO (09:29)
[2023-06-13] MEDS: Pantoprazole Sodium 40 MG in 0.9% Normal Saline (100mL MB+) 100 ML 330 MG IV (09:29)
[2023-06-13] MEDS: Enoxaparin 40 MG/0.4 ML Syringe SC (09:29)
[2023-06-13] MEDS: Propofol 10MG/Ml 1,000 MG/100 ML Bottle 21.5 MG CONT INF ×4 (09:58→23:16)
--- NOTE | 2023-06-13 10:35 | CASEMGMT ---
ARNULFO RIVERA Assessment: Face to Face with pt for initial transition planning/care coordination assessment. ARNULFO RIVERA introduced self and role at [facility], pt , dtr, son in law voices understanding and consents to assessment. Pt is vented currently. Care providers, pharmacy, and demographics verified/updated. Admitting Dx: AE COPD with CO2 narcosis req intubation PCP:Kristopher WALKER, is unsure of PCP Specialists: does not think pt has any. Preferred Pharmacy: [facility] Retail Insurance: [place], [facility] Prescription Benefit: unsure- typically obtains med[facility] from [facility]: Vale Triana, ; Graciela Strange, dtr Living Arrangements: Pt lives with in a single story home with 15 steps to enter the main level that is a half spiral staircase from the basement. states pt is I in ADL's and performs all IADL's for them. Transportation: Pt drives self. DME:walker available, pt does not use. HHC/SNF: Denies hx of Pt reports pt fell Sunday evening. States he was confused after this. She states he smokes Camel non filtered but is not sure how much per day. She states pt drinks approx 6-8 beers per day but has not since Sunday. Denies use of any other drugs. Pt family states no further concerns/needs. CM to follow. Advised pt family to ask CM if any further question/concerns/needs arise, voices understanding. Pt Goal: Home Plan: TBD pending course of hospitalization
[2023-06-13] MEDS: Vital AF 1.2 Cal Liquid 1,000 ML 15 ML GT (10:57)
--- NOTE | 2023-06-13 11:25 | CASEMGMT ---
Received tc from Amparo at [place], gave update on pt status at this time.
[2023-06-13] MEDS: Ipratropium/Albuterol Sulfate 3 ML AMPUL.NEB INHALATION ×2 (13:43→18:50)
--- NOTE | 2023-06-13 17:51 | PN.HOSP_ITS ---
Reason for Visit Reason for Visit: Diagnoses Anemia, unspecified (06/12/23) Hypo-osmolality and hyponatremia (06/12/23) Chronic obstructive pulmonary disease with (acute) exacerbation (06/12/23) Unspecified asthma with (acute) exacerbation (06/12/23) Acute respiratory failure with hypoxia (06/12/23) Unspecified fall, initial encounter (06/12/23) Unspecified place in unspecified non-institutional (private) residence as the place of occurrence of the external cause (06/12/23) Subjective Subjective Patient was seen and examined today, he is sedated on the ventilator. I talked briefly with critical care about his care. Objective Data Objective Data Vital Signs: Vital Signs Temp Pulse Resp BP Pulse Ox O2 Del Method FiO2 99.6 F H 75 14 115/50 L 94 Mechanical Ventilator 40 06/13/23 16:00 06/13/23 17:30 06/13/23 17:30 06/13/23 17:00 06/13/23 17:30 06/13/23 17:00 06/13/23 17:30 Oxygen Delivery Method Mechanical Ventilator Weight: 89.4 kg Body Mass Index (BMI) 28.3 Intake & Output: Intake and Output for Last 24 Hours 06/11/23 06/12/23 06/13/23 23:59 23:59 23:59 Intake Total 1122.42 / 1135.77 1558.84 / 1558.84 Output Total 1600 / 1600 Balance 1122.42 / 1135.77 -41.16 / -41.16 Lab / Micro Data 06/13/23 03:40 06/13/23 03:40 Labs: Laboratory Results - last 24 hr 06/12/23 16:44: Procalcitonin 0.09 06/12/23 18:07: WBC 4.2 L, RBC 3.10 L, Hgb 7.0 L, Hct 24.5 L, MCV 79.0 L, MCH 22.6 L, MCHC 28.6 L, RDW Std Deviation 49.6 H, RDW Coeff of Linda 17.2 H, Plt Count 248, MPV 10.1, Immature Gran % (Auto) 0.200, Neut % (Auto) 66.1, Lymph % (Auto) 18.4 L, [place] % (Auto) 14.6 H, Eos % (Auto) 0.5, Baso % (Auto) 0.2, Absolute Neuts (auto) 2.8, Absolute Lymphs (auto) 0.78 L, Nucleated RBC % 0, PT 17.0 H, INR 1.4, APTT 35.5, Sodium 127 L, Potassium 5.1, Chloride 87 L, Carbon Dioxide 32.0, Anion Gap 8, BUN 49 H, Creatinine 1.84 H, Estim Creat Clear Calc 38.07, Est GFR (MDRD) Af Amer 46 L, Est GFR (MDRD) Non-Af 38 L, BUN/Creatinine Ratio 26.6 H, Glucose 98, Calcium 7.8 L, Total Bilirubin 0.30, AST 25, ALT 26, Alkaline Phosphatase 99, Total Creatine Kinase 100, Troponin I High Sens 31, B- Natriuretic Peptide 483.0 H, Total Protein 6.0 L, Albumin 3.1 L, Globulin 2.9, Albumin/Globulin Ratio 1.1, Triglycerides 93 06/12/23 18:40: Urine Color Yellow, Urine Clarity Cloudy, Urine pH 5.0, Ur Specific [place] 1.020, Urine Protein 30 H, Urine Glucose (UA) Normal, Urine Ketones 5 H, Urine Occult Blood 150 H, Urine Nitrite Negative, Urine Bilirubin Negative, Urine Urobilinogen 1 H, Ur Leukocyte Esterase 25 H, Urine RBC 0-5 SEEN, Urine WBC 5-10 SEEN, Ur Squamous Epith Cells 5-10 SEEN, Urine Bacteria RARE, Urine Mucus 0 SEEN 06/12/23 19:00: Blood Type O POSITIVE, Antibody Screen NEGATIVE, Crossmatch See Detail 06/12/23 23:50: Serum Osmolality 287, Urine Osmolality 417 06/13/23 03:40: WBC 5.3, RBC 3.45 L, Hgb 8.0 L, Hct 26.4 L, MCV 76.5 L, MCH 23.2 L, MCHC 30.3 L D, RDW Std Deviation 47.9 H, RDW Coeff of Linda 17.4 H, Plt Count 223, MPV 10.0, Immature Gran % (Auto) 0.800, Neut % (Auto) 92.1 H, Lymph % (Auto) 2.7 L, [place] % (Auto) 4.2, Eos % (Auto) 0.2, Baso % (Auto) 0.0, Absolute Neuts (auto) 4.9, Absolute Lymphs (auto) 0.14 L, Nucleated RBC % 0, Sodium 131 L , Potassium 4.3, Chloride 89 L, Carbon Dioxide 34.0 H, Anion Gap 8, BUN 47 H, Creatinine 1.52 H, Estim Creat Clear Calc 47.06, Est GFR (MDRD) Af Amer 58 L, Est GFR (MDRD) Non-Af 48 L, BUN/Creatinine Ratio 30.9 H, Glucose 97, Calcium 7.6 L, Phosphorus 5.7 H, Magnesium 2.0, TSH 0.70 Micro: Microbiology 06/13/23 07:10 Mucosa - Nasopharyngeal Respiratory Panel (PCR) - Final 06/12/23 18:37 Mucosa - Nasopharyngeal SARS-CoV-2, Influenza & RSV (PCR) - Final ABG Data ABG results: ABG 06/12/23 06/13/23 18:13 05:43 Specimen Type ART ART Sample Site Not entered L Radial pH 7.31 L 7.33 L Bicarbonate Actual 34.2 H 31.5 H Total CO2 36 33 Base Excess 8 H 6 H O2 Saturation 100 H 91 L O2 % 15.0 35.0 ABG pCO2 68.0 H* 60.1 H ABG pO2 487 H* 68 L Henrik Test Positive Respiration Rate 14 O2 Delivery Device Bagging Adult Vent Vent Mode Not entered AC Tidal Volume 450.0 POC PEEP 5 Crit Call To/Read Back Yes Blood Gas Notified Whom [facility] Blood Gas Notified Time 18:15:16 Radiography Diagnostic Testing: Radiology Impression Brain CT 06/12/23 17:40 IMPRESSION: 1. Minimal chronic microvascular deep white matter changes. 2. No intracranial mass, hemorrhage or acute territorial infarct. 3. Mucosal thickening in the paranasal sinuses without air-fluid levels or nora sinus opacification. CRITICAL REPORT FINDINGS: No intracranial mass, hemorrhage or acute territorial infarct. Electronically Signed: Gagan Harvey MD at 17:55 EST , ADDENDUM: 06/12/23 2046 IMPRESSION: 1. Minimal chronic microvascular deep white matter changes. 2. No intracranial mass, hemorrhage or acute territorial infarct. 3. Mucosal thickening in the paranasal sinuses without air-fluid levels or nora sinus opacification. CRITICAL REPORT FINDINGS: No intracranial mass, hemorrhage or acute territorial infarct. N.B. : The above Results were Read Back by Gagan Harvey MD to Paz Hernandez RN, and understanding confirmed on 06/12/2023 18:07:25 (ET). Electronically Signed: Gagan Harvey MD at 17:55 EST , Head/Neck CTA 06/12/23 17:41 IMPRESSION: 1. Moderate calcifications noted throughout the cavernous carotid vessels bilaterally. No evidence of stenosis occlusion or aneurysmal dilatation. 2. No CTA evidence of filling defects or LVO. 3. Moderate to extensive calcifications at the carotid bulbs bilaterally without hemodynamically significant stenosis noted in the cervical carotid or vertebral vessels bilaterally. 4. Mild ectasia of the ascending aorta with maximal transverse dimension of 3.7 cm. Electronically Signed: Gagan Harvey MD at 18:19 EST , Chest X-Ray 06/12/23 18:32 IMPRESSION: 1. Status post intubation and nasogastric tube placement. 2. No active pulmonary disease. Electronically Signed: Harley Castillo MD at 18:44 EST , Chest/Abdomen/Pelvis CT 06/12/23 20:00 IMPRESSION: 1. Asymmetric anterior right lower chest and upper abdomen, subcutaneous stranding density may represent soft tissue contusion. No other evidence of acute traumatic injury chest, abdomen or pelvis solid or hollow viscus organs or osseous structures. 2. Small right pleural effusion and bilateral posterior dependent intralobular septal thickening and peribronchial thickening suggesting interstitial edema. Correlate for decreased heart function and/or possible volume overload. 3. Renal excretion of contrast with no reported intravenous contrast administration may represent delayed contrast excretion from prior contrasted dose. Correlate clinically. 4. Single gallstone with questionable gallbladder wall thickening. Correlate clinically and consider right upper quadrant ultrasound. 5. Significant abdominal aortic and branch vessel atherosclerosis. Electronically Signed: Gregorio Tello DO at 21:28 EST , Chest X-Ray 06/13/23 05:55 IMPRESSION: 1. Endotracheal tube tip is 5.8 cm above the rafia. 2. NG tube is in the stomach. 3. Low lung volumes limit the exam. No consolidations. 4. No acute cardiopulmonary abnormality. Electronically Signed: Gregorio Raymundo MD at 5:42 EST , Physical Exam Const Constitutional Narrative: Patient is sedated and on the ventilator General Appearance: well developed HEENT normocephalic and head/scalp atraumatic Eyes conjunctivae normal Neck no JVD and thyroid normal General: trachea midline Resp normal respiratory effort, no retractions, no use of accessory muscles and clear to auscultation bilaterally Auscultation: Negative for rales, rhonchi or wheezes Cardio regular rate, regular rhythm, S1 normal heart sound, S2 normal heart sound, no murmurs, no rub and no gallops GI normal to inspection, nondistended, normoactive bowel sounds, soft to palpation, non-tender and non-distended Extremity no clubbing, cyanosis or edema Skin no rashes or lesions noted General Skin Exam: no breakdown Neuro CN's II-XII intact bilaterally Neuro Narrative: Patient is sedated and on the ventilator Psych Psych Narrative: Patient is sedated and on the ventilator Assessment & Plan Assessment/Plan (1) Acute hypoxic respiratory failure: PLAN: Plan 1. Acute on chronic hypercapnic respiratory failure secondary to COPD exacerbation-patient is currently on the ventilator at this time, critical care is participating in his care #2 anemia-etiology unclear-requiring blood transfusion, patient does not have any signs of active bleeding at this time, patient has microcytic indices which may point to chronic iron deficiency anemia, iron studies will be ordered #3 essential hypertension-patient's blood pressure is being monitored, he is receiving no blood pressure medications presently #4 COPD exacerbation-patient is on aerosol treatments and IV Solu-Medrol Total clinical time spent by myself addressing the patient's medical issues, reviewing all this data, and collaborating with patient's care team: 35 minutes Charges/Coding Visit Charges Inpatient E&M: 77466 Subs Hosp L2
[2023-06-13] MEDS: fentaNYL drip 100 ML 10 MCG CONT INF (18:28)
[2023-06-14] VITALS (35 sets, daily range): BP systolic 96–168; BP diastolic 45–109; PULSE 71–126; RESP 13–24; TEMP 36.4–37.6; O2SAT 89–98; BMI 28.3
[2023-06-14] MEDS: Ipratropium/Albuterol Sulfate 3 ML AMPUL.NEB INHALATION ×4 (01:10→20:20)
[2023-06-14 03:15] LABS: Absolute Lymphocyte Count 0.17 X10^3/uL (0.83-4.51); Absolute Neutrophil Count 5.3 X10^3/uL (2.0-7.7); Hematocrit 25.9 % (40-54); Hemoglobin 7.8 g/dL (13.0-16.5); Lymphocyte # 0.17 X10^3/ul (0.83-4.51); Lymphocyte % 2.9 % (19-41); Mean Corp Hgb Conc 30.1 g/dL (32-36); Mean Corpuscular Hgb 23.5 pg (27.0-32.0); Mean Platelet Vol. 9.9 fl (6.2-12.0); Monocyte# 0.35 X10^3/uL; NRBC Flagged by Analyzer 0.5 % (0-5); Neutrophil # 5.31 X10^3/uL (2.7-7.7); Neutrophil % 90.4 % (47-70); POSITIVE DIFFERENTIAL YES; Platelet Count 248 K/mm3 (150-450); RBC Distribution Width CV 17.8 % (11.6-14.6); RBC Distribution Width SD 50.3 fl (35.1-43.9); Red Blood Count 3.32 M/mm3 (4.6-6.2); White Blood Count 5.9 K/mm3 (4.4-11.0)
[2023-06-14 03:35] LABS: AST(SGOT) 19 U/L (15-37); Alanine Aminotransfer ALT/SGPT 38 U/L (16-61); Albumin, Serum 2.9 g/dL (3.2-5.0); Alkaline Phosphatase 83 U/L (45-117); Anion Gap 5 (5-15); BUN 51 mg/dL (7-18); BUN/Creat Ratio 32.7 RATIO (10-20); Calcium,Total 7.7 mg/dL (8.5-10.1); Chloride 91 mmol/L (98-107); Creatinine, Serum 1.56 mg/dL (0.70-1.30); EST Glomerular Filtration Rate 46 mL/min (>60); Est Glom Filt Rate - Afr Amer 56 mL/min (>60); Estimated Creatinine Clearance 46.09 ml/min; Ferritin 13 ng/mL (26-388); Globulin 2.9 g/dL (2.2-4.2); Glucose 178 mg/dL (74-106); Iron Binding Capacity,Total 409 ug/dL (250-450); Potassium 4.6 mmol/L (3.5-5.1); Protein, Total 5.8 g/dL (6.4-8.2); Sodium Level 131 mmol/L (136-145)
[2023-06-14] MEDS: Propofol 10MG/Ml 1,000 MG/100 ML Bottle 21.5 MG CONT INF (03:56)
[2023-06-14] MEDS: CHLORHEXIDINE GLUC 2% CLOTH 1 EACH TOWELETTE TOPICAL (04:02)
[2023-06-14] MEDS: 0.9% Saline Lock 10 ML Syringe IV ×2 (04:02→20:26)
[2023-06-14] MEDS: fentaNYL drip 100 ML 5 MCG CONT INF (05:00)
[2023-06-14] MEDS: Piperacil/Tazobactam 3.375 GM in 0.9% Normal Saline (50mL MB+) 50 ML IV ×3 (05:00→20:25)
[2023-06-14 06:11] LABS: Allen Test Positive; Base Excess 8 mmol/L (-2 to +2); Bicarbonate 33.7 mmol/L (22-26); Blood Gas Specimen Type ART; Mode PS; O2 Delivery Device Adult Vent; PEEP 5; PO2 79 mmHG (75-100); SITE L Radial; SO2 94 % (95-99); Total Carbon Dioxide 36 mmol/L; pCO2 65.4 mmHg (35-45); pH 7.32 (7.35-7.45)
--- NOTE | 2023-06-14 06:31 | NURSING ---
Pt extubated at 0620 to 5 L NC.
--- NOTE | 2023-06-14 06:35 | PN.CC_ITS ---
Assessment & Plan Assessment/Plan (1) Acute hypoxic respiratory failure: (2) Fall at home: QUALIFIERS: Encounter type: initial encounter Qualified Code(s): W19.XXXA - Unspecified fall, initial encounter; Y92.009 - Unspecified place in unspecified non-institutional (private) residence as the place of occurrence of the external cause PLAN: Plan RECOMMENDATIONS: 1. Continue bronchodilators, empiric steroids and IV Zosyn 2. Okay to proceed with extubation 3. Continue empiric thiamine and folate 4. Continue PPI and monitor blood counts daily 5. Outpatient workup for COPD IMPRESSIONS: 1. Acute on chronic hypercarbic respiratory failure secondary to presumed COPD exacerbation Patient does have an area of bronchiectasis in the lingular area, but does not have significant emphysematous changes. However, patient appears to have CO2 retention at baseline with a bicarbonate compensation. Clinical suspicion is patient has not been evaluated for obstructive lung disease leading to a lack of diagnosis. Will empirically continue steroids, bronchodilators and antibiotics. Patient can proceed with extubation 2. Anemia/hyponatremia Unclear etiology. Patient did receive 2 units of packed red blood cells, but failed to increment appropriately. Will attempt to verify social history, but some concern for possible excessive alcohol leading to findings. No bowel movements at this time make significant GI bleed less likely. Patient is on a PPI. 3. 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 Patient reportedly is a full code per hospitalist note. Cannot verify with family. Patient has been taken off of hydrochlorothiazide secondary to hyponatremia. Patient may have an element of hypotension associated with the use of propofol. Will continue to monitor. TIME: 32 minutes critical care time spent addressing patient's acute respiratory failure, anemia, hyponatremia, review of all data and collaboration with care team Subjective Subjective Patient did okay overnight. Patient was able to tolerate a spontaneous breathing trial for an hour this morning. No significant fever or hypotension has been noted. Family did verify that the patient drinks 6-8 beers per day, but believes the patient has not had a drink since Sunday prior to admission. Objective Data Objective Data Vital Signs: Vital Signs Temp Pulse Resp BP Pulse Ox O2 Del Method FiO2 36.8 C 89 16 133/69 H 94 Mechanical Ventilator 45 06/14/23 06:00 06/14/23 06:12 06/14/23 06:12 06/14/23 06:00 06/14/23 06:00 06/14/23 06:00 06/14/23 06:00 Oxygen Delivery Method Mechanical Ventilator Weight: 89.6 kg Body Mass Index (BMI) 28.3 Intake & Output: Intake and Output for Last 24 Hours 06/12/23 06/13/23 06/14/23 23:59 23:59 23:59 Intake Total 1122.42 / 1135.77 2130.37 / 2156.14 500.27 / 500.27 Output Total 1900 / 1900 375 / 375 Balance 1122.42 / 1135.77 230.37 / 256.14 125.27 / 125.27 Lab / Micro Data Attestation: I reviewed the patient's lab results. 06/14/23 03:05 06/14/23 03:05 Labs: Laboratory Results - last 24 hr 06/14/23 03:05: WBC 5.9, RBC 3.32 L, Hgb 7.8 L, Hct 25.9 L, MCV 78.0 L, MCH 23.5 L, MCHC 30.1 L, RDW Std Deviation 50.3 H, RDW Coeff of Linda 17.8 H, Plt Count 248, MPV 9.9, Immature Gran % (Auto) 0.700, Neut % (Auto) 90.4 H, Lymph % (Auto) 2.9 L, [place] % (Auto) 6.0, Eos % (Auto) 0.0, Baso % (Auto) 0.0, Absolute Neuts (auto) 5.3, Absolute Lymphs (auto) 0.17 L, Nucleated RBC % 0.5, Sodium 131 L, P otassium 4.6, Chloride 91 L, Carbon Dioxide 35.0 H, Anion Gap 5, BUN 51 H, Creatinine 1.56 H, Estim Creat Clear Calc 46.09, Est GFR (MDRD) Af Amer 56 L, Est GFR (MDRD) Non-Af 46 L, BUN/Creatinine Ratio 32.7 H, Glucose 178 H, Calcium 7.7 L, TIBC 409, Ferritin 13 L, Total Bilirubin 0.40, AST 19, ALT 38, Alkaline Phosphatase 83, Total Protein 5.8 L, Albumin 2.9 L, Globulin 2.9, Albumin/Globulin Ratio 1.0 Micro: Microbiology 06/13/23 07:10 Mucosa - Nasopharyngeal Respiratory Panel (PCR) - Final 06/12/23 18:37 Mucosa - Nasopharyngeal SARS-CoV-2, Influenza & RSV (PCR) - Final ABG Data ABG results: ABG 06/14/23 06:05 Specimen Type ART Sample Site L Radial pH 7.32 L Bicarbonate Actual 33.7 H Total CO2 36 Base Excess 8 H O2 Saturation 94 L O2 % 45.0 ABG pCO2 65.4 H ABG pO2 79 Henrik Test Positive O2 Delivery Device Adult Vent Vent Mode PS POC PEEP 5 Attestation: I personally reviewed and interpreted this ABG as follows: (Partially compensated acute on chronic hypercarbic respiratory failure with increased AA gradient) Rhythm Strip Rhythm Strip: Sinus Rhythm Rate: 93 Physical Exam Const Constitutional Narrative: Patient is intubated and tolerating trial well. Good vent synchrony noted General Appearance: patient mechanically ventilated HEENT normocephalic, head/scalp atraumatic and hearing grossly normal bilaterally Eyes PERRL, EOMs intact bilaterally and no scleral icterus Neck no lymphadenopathy and supple Resp Auscultation: wheezes throughout and diminished lung sounds; Negative for rales or rhonchi Cardio regular rate, regular rhythm, S1 normal heart sound, S2 normal heart sound, no murmurs, no rub and no gallops GI normal to inspection, nondistended, normoactive bowel sounds, soft to palpation, non-tender and non-distended Extremity normal to inspection and full ROM Skin Skin Narrative: Scattered telangiectasias noted. Neuro CN's II-XII intact bilaterally, moves all extremities and no focal motor deficits Psych Mood & Affect: flat affect Charges/Coding Procedures Hospitalists Procedures: 49260 Critical Care 1st Hr
--- NOTE | 2023-06-14 09:26 | CASEMGMT ---
Social Work SW participated in ICU rounds this morning, pt's daughter and present. Pt is not fully alert and oriented this morning as per RN. SW will continue to follow for social service and discharge planning needs. SANDRA Camp
[2023-06-14] MEDS: Aspirin 81 MG TAB.CHEW PO (09:49)
[2023-06-14] MEDS: Cholecalciferol (VIT D3) 25 MCG TABLET (1,000 UNITS) PO (09:49)
[2023-06-14] MEDS: Thiamine Hydrochloride 100 MG Tablet PO (09:49)
[2023-06-14] MEDS: Enoxaparin 40 MG/0.4 ML Syringe SC (09:49)
[2023-06-14] MEDS: Folic Acid 1 MG Tablet PO (09:49)
[2023-06-14] MEDS: Lisinopril 20 MG Tablet PO (10:12)
[2023-06-14] MEDS: Metoprolol Tartrate 50 MG Tablet PO ×2 (10:12→20:26)
[2023-06-14] MEDS: Pantoprazole Sodium 40 MG in 0.9% Normal Saline (100mL MB+) 100 ML 330 MG IV (10:12)
[2023-06-14] MEDS: hydroCHLOROthiazide 12.5mg 12.5 MG PO (11:38)
--- NOTE | 2023-06-14 17:11 | PCM.PN.HOSP ---
Reason for Visit Reason for Visit: Diagnoses Anemia, unspecified (06/12/23) Hypo-osmolality and hyponatremia (06/12/23) Chronic obstructive pulmonary disease with (acute) exacerbation (06/12/23) Unspecified asthma with (acute) exacerbation (06/12/23) Acute respiratory failure with hypoxia (06/12/23) Unspecified fall, initial encounter (06/12/23) Unspecified place in unspecified non-institutional (private) residence as the place of occurrence of the external cause (06/12/23) Subjective Subjective Patient was seen and examined today, he was extubated this morning, he appears comfortable on nasal cannula oxygen and is alert and appropriate. He states that he goes to the [facility] for hypertension only, he does not have any known lung disease, he says he may have been exposed to agent orange but he does not know. Objective Data Objective Data Vital Signs: Vital Signs Temp Pulse Resp BP Pulse Ox O2 Del Method O2 Flow Rate 99.6 F H 101 H 16 149/86 H 95 Nasal Cannula 3 06/14/23 16:00 06/14/23 16:00 06/14/23 16:00 06/14/23 16:00 06/14/23 16:00 06/14/23 16:00 06/14/23 17:00 FiO2 45 06/14/23 06:00 Oxygen Flow Rate (L/min) 3 Oxygen Delivery Method Nasal Cannula Weight: 89.6 kg Body Mass Index (BMI) 28.3 Intake & Output: Intake and Output for Last 24 Hours 06/12/23 06/13/23 06/14/23 23:59 23:59 23:59 Intake Total 1122.42 / 1135.77 2130.37 / 2156.14 720.27 / 720.27 Output Total 1900 / 1900 825 / 825 Balance 1122.42 / 1135.77 230.37 / 256.14 -104.73 / -104.73 Lab / Micro Data 06/14/23 03:05 06/14/23 03:05 Labs: Laboratory Results - last 24 hr 06/12/23 19:00: Crossmatch See Detail 06/14/23 03:05: WBC 5.9, RBC 3.32 L, Hgb 7.8 L, Hct 25.9 L, MCV 78.0 L, MCH 23.5 L, MCHC 30.1 L, RDW Std Deviation 50.3 H, RDW Coeff of Linda 17.8 H, Plt Count 248, MPV 9.9, Immature Gran % (Auto) 0.700, Neut % (Auto) 90.4 H, Lymph % (Auto) 2.9 L, [place] % (Auto) 6.0, Eos % (Auto) 0.0, Baso % (Auto) 0.0, Absolute Neuts (auto) 5.3, Absolute Lymphs (auto) 0.17 L, Nucleated RBC % 0.5, Sodium 131 L, Potassium 4.6, Chloride 91 L, Carbon Dioxide 35.0 H, Anion Gap 5, BUN 51 H, Creatinine 1.56 H, Estim Creat Clear Calc 46.09, Est GFR (MDRD) Af Amer 56 L, Est GFR (MDRD) Non-Af 46 L, BUN/Creatinine Ratio 32.7 H, Glucose 178 H, Calcium 7.7 L, TIBC 409, Ferritin 13 L, Total Bilirubin 0.40, AST 19, ALT 38, Alkaline Phosphatase 83, Total Protein 5.8 L, Albumin 2.9 L, Globulin 2.9, Albumin/Globulin Ratio 1.0 Micro: Microbiology 06/13/23 07:10 Mucosa - Nasopharyngeal Respiratory Panel (PCR) - Final 06/12/23 18:37 Mucosa - Nasopharyngeal SARS-CoV-2, Influenza & RSV (PCR) - Final ABG Data ABG results: ABG 06/14/23 06:05 Specimen Type ART Sample Site L Radial pH 7.32 L Bicarbonate Actual 33.7 H Total CO2 36 Base Excess 8 H O2 Saturation 94 L O2 % 45.0 ABG pCO2 65.4 H ABG pO2 79 Henrik Test Positive O2 Delivery Device Adult Vent Vent Mode PS POC PEEP 5 Rhythm Strip Rhythm Strip: Sinus Rhythm Rate: 93 Physical Exam Const alert, oriented x3, no apparent distress and average body habitus General Appearance: cooperative, well kempt and well developed Orientation / Consciousness: awake, oriented to person, oriented to place and oriented to time HEENT normocephalic, head/scalp atraumatic and moist oral mucous membranes Eyes PERRL, EOMs intact bilaterally and conjunctivae normal Neck supple, no JVD, thyroid normal and no carotid bruits General: trachea midline Resp normal respiratory effort, no retractions and no use of accessory muscles Resp Narrative: Faint expiratory rhonchi are noted bilaterally Auscultation: rhonchi; Negative for rales or wheezes Cardio S1 normal heart sound, S2 normal heart sound, no murmurs, no rub and no gallops Cardio Narrative: Heart rate and rhythm is irregular GI normal to inspection, nondistended, normoactive bowel sounds, soft to palpation, non-tender and non-distended Extremity no clubbing, cyanosis or edema Skin no rashes or lesions noted General Skin Exam: no breakdown Neuro oriented x3, CN's II-XII intact bilaterally, moves all extremities, no focal motor deficits and no sensory deficits noted Sensorium / Orientation: awake and alert Speech: speech normal Psych affect normal Assessment & Plan Assessment/Plan (1) Acute hypoxic respiratory failure: PLAN: Plan 1. Acute on chronic hypercapnic respiratory failure secondary to COPD exacerbation-patient is currently on nasal cannula oxygen at 3 L, he appears comfortable #2 anemia-etiology unclear-requiring blood transfusion, patient does not have any signs of active bleeding at this time, patient has microcytic indices which may point to chronic iron deficiency anemia, iron level will be ordered, patient's ferritin is low and his iron binding capacity is high. #3 essential hypertension-patient's blood pressure is being monitored, he is receiving no blood pressure medications presently #4 COPD exacerbation-patient is on aerosol treatments and IV Solu-Medrol Total clinical time spent by myself addressing the patient's medical issues, reviewing all this data, and collaborating with patient's care team: 35 minutes Charges/Coding Visit Charges Inpatient E&M: 35702 Subs Hosp L2
[2023-06-15] VITALS (20 sets, daily range): BP systolic 134–171; BP diastolic 74–90; PULSE 80–94; RESP 14–24; TEMP 36.4–37.1; O2SAT 86–97; BMI 27.6
[2023-06-15] MEDS: Ipratropium/Albuterol Sulfate 3 ML AMPUL.NEB INHALATION ×3 (01:49→19:29)
--- NOTE | 2023-06-15 01:52 | CPS ---
Breath sound clear with effective cough.
[2023-06-15 03:34] LABS: Absolute Lymphocyte Count 0.27 X10^3/uL (0.83-4.51); Absolute Neutrophil Count 7.2 X10^3/uL (2.0-7.7); Hematocrit 27.4 % (40-54); Hemoglobin 8.2 g/dL (13.0-16.5); Lymphocyte # 0.27 X10^3/ul (0.83-4.51); Lymphocyte % 3.4 % (19-41); Mean Corp Hgb Conc 29.9 g/dL (32-36); Mean Corpuscular Hgb 23.5 pg (27.0-32.0); Mean Corpuscular Volume 78.5 fL (80-94); Mean Platelet Vol. 9.9 fl (6.2-12.0); Monocyte# 0.56 X10^3/uL; NRBC Flagged by Analyzer 0.4 % (0-5); Neutrophil # 7.16 X10^3/uL (2.7-7.7); Neutrophil % 89.1 % (47-70); POSITIVE DIFFERENTIAL YES; Platelet Count 213 K/mm3 (150-450); RBC Distribution Width CV 18.2 % (11.6-14.6); RBC Distribution Width SD 51.9 fl (35.1-43.9); Red Blood Count 3.49 M/mm3 (4.6-6.2)
[2023-06-15 03:49] LABS: Anion Gap 3 (5-15); BUN 41 mg/dL (7-18); Calcium,Total 8.6 mg/dL (8.5-10.1); Chloride 93 mmol/L (98-107); Creatinine, Serum 1.08 mg/dL (0.70-1.30); EST Glomerular Filtration Rate 71 mL/min (>60); Est Glom Filt Rate - Afr Amer 86 mL/min (>60); Estimated Creatinine Clearance 66.57 ml/min; Glucose 133 mg/dL (74-106); Potassium 4.9 mmol/L (3.5-5.1); Sodium Level 133 mmol/L (136-145)
[2023-06-15 04:09] LABS: Iron 16 ug/dL (65-175)
--- NOTE | 2023-06-15 04:27 | EKG12_ITS ---
Test Reason : arrhythmia Blood Pressure : / mmHG Vent. Rate : 087 BPM Atrial Rate : 000 BPM P-R Int : 000 ms QRS Dur : 076 ms QT Int : 334 ms P-R-T Axes : 000 038 026 degrees QTc Int : 401 ms Atrial fibrillation Abnormal ECG Confirmed by LIDYA CLARK, SHANON ([id number]), associate entertainment editor KYLE BACK ([id number]) on 06/19/2023 6:29:57 AM Referred By: Stephan Confirmed By:SHANON BOSE MD
[2023-06-15] MEDS: Piperacil/Tazobactam 3.375 GM in 0.9% Normal Saline (50mL MB+) 50 ML IV ×3 (05:19→20:26)
--- NOTE | 2023-06-15 06:46 | PCM.PN.INT ---
Assessment & Plan Assessment/Plan (1) Acute hypoxic respiratory failure: (2) Fall at home: QUALIFIERS: Encounter type: initial encounter Qualified Code(s): W19.XXXA - Unspecified fall, initial encounter; Y92.009 - Unspecified place in unspecified non-institutional (private) residence as the place of occurrence of the external cause PLAN: Plan RECOMMENDATIONS: 1. Continue bronchodilators, wean steroids. Continue IV Zosyn pending cultures 2. Consider GI workup given A-fib with possible need for anticoagulation 3. Complete empiric thiamine and folate 4. Continue PPI and monitor blood counts daily 5. Outpatient workup for COPD 6. Okay to leave the intensive care unit IMPRESSIONS: 1. Acute on chronic hypercarbic respiratory failure secondary to presumed COPD exacerbation Patient does have an area of bronchiectasis in the lingular area, but does not have significant emphysematous changes. However, patient appears to have CO2 retention at baseline with a bicarbonate compensation. Clinical suspicion is patient has not been evaluated for obstructive lung disease leading to a lack of diagnosis. Will empirically continue steroids, bronchodilators and antibiotics. Patient can proceed with extubation 2. Anemia/hyponatremia Unclear etiology. Patient did receive 2 units of packed red blood cells, but failed to increment appropriately. Will attempt to verify social history, but some concern for possible excessive alcohol leading to findings. No suspicious bowel movements at this time make significant GI bleed less likely. Patient is on a PPI. 3. 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 Patient reportedly is a full code per hospitalist note. Cannot verify with family. Patient has been taken off of hydrochlorothiazide secondary to hyponatremia. Patient may have an element of hypotension associated with the use of propofol. Will continue to monitor. 4. New onset A-fib Patient with intermittent A-fib. No echocardiogram available for review. There is some suspicion of a possible slow GI bleed with patient's iron deficiency anemia. Patient may require a GI workup prior to anticoagulation. Subjective Subjective Patient did well overnight. Patient did have a choking episode, but no change in respiratory status. Patient does have a cough productive of thick yellow sputum. Patient denies any chest pain or abdominal pain. Patient did have a bowel movement over the last 24 hours that appeared normal. Objective Data Objective Data Vital Signs: Vital Signs Temp Pulse Resp BP Pulse Ox O2 Del Method O2 Flow Rate 36.9 C 82 20 H 146/83 H 95 Nasal Cannula 3 06/15/23 06:00 06/15/23 06:00 06/15/23 06:00 06/15/23 06:00 06/15/23 06:00 06/15/23 06:00 06/15/23 06:00 FiO2 45 06/14/23 06:00 Oxygen Flow Rate (L/min) 3 Oxygen Delivery Method Nasal Cannula Weight: 87.5 kg Body Mass Index (BMI) 27.6 Intake & Output: Intake and Output for Last 24 Hours 06/13/23 06/14/23 06/15/23 23:59 23:59 23:59 Intake Total 2130.37 / 2156.14 1250.27 / 1250.27 290 / 290 Output Total 1900 / 1900 1974 / 1974 350 / 350 Balance 230.37 / 256.14 -724.73 / -724.73 -60 / -60 Lab / Micro Data Attestation: I reviewed the patient's lab results. 06/15/23 03:25 06/15/23 03:25 Labs: Laboratory Results - last 24 hr 06/12/23 19:00: Crossmatch See Detail 06/15/23 03:25: WBC 8.0, RBC 3.49 L, Hgb 8.2 L, Hct 27.4 L, MCV 78.5 L, MCH 23.5 L, MCHC 29.9 L, RDW Std Deviation 51.9 H, RDW Coeff of Linda 18.2 H, Plt Count 213, MPV 9.9, Immature Gran % (Auto) 0.500, Neut % (Auto) 89.1 H, Lymph % (Auto) 3.4 L, [place] % (Auto) 7.0, Eos % (Auto) 0.0, Baso % (Auto) 0.0, Absolute Neuts (auto) 7.2, Absolute Lymphs (auto) 0.27 L, Nucleated RBC % 0.4, Sodium 133 L, Potassium 4.9, Chloride 93 L, Carbon Dioxide 37.0 H, Anion Gap 3 L, BUN 41 H, Creatinine 1.08, Estim Creat Clear Calc 66.57, Est GFR (MDRD) Af Amer 86, Est GFR (MDRD) Non-Af 71, BUN/Creatinine Ratio 38.0 H, Glucose 133 H, Calcium 8.6, Iron 16 L Micro: Microbiology 06/13/23 07:10 Mucosa - Nasopharyngeal Respiratory Panel (PCR) - Final 06/12/23 18:37 Mucosa - Nasopharyngeal SARS-CoV-2, Influenza & RSV (PCR) - Final Rhythm Strip Rhythm Strip: A-fib Rate: 82 Physical Exam Const alert, oriented x3 and no apparent distress HEENT normocephalic, head/scalp atraumatic and hearing grossly normal bilaterally Eyes PERRL, EOMs intact bilaterally and no scleral icterus Neck no lymphadenopathy and supple Chest Chest Narrative: Increased AP diameter Resp Auscultation: wheezes throughout and diminished lung sounds; Negative for rales or rhonchi Cardio regular rate, regular rhythm, S1 normal heart sound, S2 normal heart sound, no murmurs, no rub and no gallops GI normal to inspection, nondistended, normoactive bowel sounds, soft to palpation, non-tender and non-distended Extremity no clubbing, cyanosis or edema Skin Skin Narrative: Scattered telangiectasias noted. Neuro CN's II-XII intact bilaterally, moves all extremities and no focal motor deficits Psych cooperative Mood & Affect: flat affect Charges/Coding Visit Charges Inpatient E&M: 71928 Subs Hosp L3
--- NOTE | 2023-06-15 06:51 | ECHOCS_ITS ---
Reason For Study: Afib, Aflutter Procedure This was a 2D Doppler, Color Flow transthoracic echocardiogram. Contrast injection was performed. Exam performed portable in ICU/CCU. Left Ventricle Normal LV size. The estimated ejection fraction is 65 %. No evidence for diastolic dysfunction. No regional wall motion abnormalities noted. Right Ventricle Normal RV size. Normal systolic function. Atria Normal left atrium. Normal right atrium. No doppler evidence for ASD. Mitral Valve There is no mitral valve stenosis. Trivial mitral valve insufficiency. Tricuspid Valve There is no tricuspid stenosis. Mild tricuspid valve insufficiency. Pulmonary artery systolic pressure is 45 mmHg. Aortic Valve Trisinus/trileaflet aortic valve. There is no aortic stenosis. No aortic valve insufficiency. Pulmonic Valve There is no pulmonic valvular stenosis. No pulmonic valve insufficiency. Great Vessels Normal aortic root. Pericardium/Pleural No pericardial effusion. Medication Diluted definity 2ml given slow IV push to enhance endocardial definition. MMode/2D Measurements & Calculations LVIDd: 4.6 cm IVSd: 0.94 cm Ao root diam: 3.6 cm LVIDs: 3.5 cm LVPWd: 1.0 cm RVDd: 3.7 cm FS: 24.0 % LAV(MOD-bp): 52.5 ml LA A4 area: 18.0 cm2 LA dimension(2D): 3.7 cm LAV(MOD-bp) Indexed: 25.5 ml/m2 LAV(MOD-sp2): 54.0 ml LAV(MOD-sp4): 50.0 ml TAPSE: 3.0 cm RA A4 area: 17.5 cm2 Time Measurements MV dec time: 0.13 sec Doppler Measurements & Calculations MV E max ajay: 78.9 cm/sec Lat Peak E' Ajay: 8.6 cm/sec Med Peak E' Ajay: 9.5 cm/sec MV A max ajay: 116.4 cm/sec E/E' lat: 9.1 E/E' med: 8.3 MV E/A: 0.68 MV dec slope: 603.6 cm/sec2 Ao V2 max: 141.2 cm/sec LV V1 max: 117.9 cm/sec Ao max P.0 mmHg LV V1 max P.6 mmHg Ao V2 mean: 90.4 cm/sec Ao mean P.8 mmHg Ao V2 VTI: 30.6 cm PA V2 max: 71.7 cm/sec TR max ajay: 323.9 cm/sec TR max P.0 mmHg ECHO/Echo Complete W/ Contrast Interpretation Summary The estimated ejection fraction is 65 %. No evidence for diastolic dysfunction. Trivial mitral valve insufficiency. Ordering Physician: Pablito Rothman Referring Physician: [facility] Performed By: Tenisha Moeller, PABLO, RVT
[2023-06-15] MEDS: Pantoprazole Sodium 40 MG in 0.9% Normal Saline (100mL MB+) 100 ML 330 MG IV (08:56)
[2023-06-15] MEDS: Lisinopril 20 MG Tablet PO (08:56)
[2023-06-15] MEDS: Enoxaparin 40 MG/0.4 ML Syringe SC (08:56)
[2023-06-15] MEDS: Folic Acid 1 MG Tablet PO (08:56)
[2023-06-15] MEDS: CHLORHEXIDINE GLUC 2% CLOTH 1 EACH TOWELETTE TOPICAL (08:56)
[2023-06-15] MEDS: hydroCHLOROthiazide 12.5mg 12.5 MG PO (08:57)
[2023-06-15] MEDS: Metoprolol Tartrate 50 MG Tablet PO ×2 (08:57→20:26)
[2023-06-15] MEDS: Aspirin 81 MG TAB.CHEW PO (08:57)
[2023-06-15] MEDS: Cholecalciferol (VIT D3) 25 MCG TABLET (1,000 UNITS) PO (08:57)
[2023-06-15] MEDS: Thiamine Hydrochloride 100 MG Tablet PO (08:57)
[2023-06-15] MEDS: Sodium Ferric Gluconat 250 MG in 0.9% Normal Saline 250 ML 135 MG IV (10:16)
--- NOTE | 2023-06-15 12:48 | CASEMGMT ---
SW reviewed therapy notes and patient was an assist of 2. SW met with patient, his daughter, and . SW introduced self and role at [facility]. SW explained therapy notes and the concern with patient going home requiring this much assist. Patient and his family said they were not sure about a plan yet. SW explained the options of SNF short term, home health, and outpatient therapy. SW let them know that SW and the RN CM will continue to follow and assist with discharge planning. SW did not talk with patient about his alcohol consumption due to family being present and not completely sure about patient's mental status. Plan: Undetermined. SW and RN CM to continue to follow for safe d/c plan. Petra Murray MANAGER [employer]
--- NOTE | 2023-06-15 13:49 | EX.PCM.CON.G ---
HPI Consult Data Date of Consult: 06/15/23 HPI Narrative Reason for Consultation: anemia HPI Narrative: MARK MUÑIZ, is a 73 M with a past medical history of with subsequent COPD who presents to [facility] ER with SOB and lethargy. Mr. Muñiz was intubated shortly after arrival . His family stated he had been coughing more over the past few days and that he appeared more guo over the past week. In the ER he was diagnosed with AE COPD with toxic encephalopathy due to CO2 Narcosis with acute hypoxic / hypercapnic respiratory failure requiring intubation with head CT negative for acute pathologic changes and low-index of suspicion for stroke with patient waking up shortly after being intubated requiring sedation complicated by mild hyponatremia of 127 mmol/L. He was able to successfully extubated. I was consulted due to his decreasing hemoglobin. His hemoglobin dropped to 7.8 PFSH Home Medications aspirin 81 mg capsule 81 mg PO DAILY 06/12/23 [History Last Taken Unknown] cholecalciferol (vitamin D3) 25 mcg (1,000 unit) capsule (Vitamin D3) 25 mcg PO DAILY 06/12/23 [History Last Taken Unknown] hydrochlorothiazide 12.5 mg tablet 12.5 mg PO DAILY 06/12/23 [History Last Taken Unknown] lisinopril 40 mg tablet 40 mg PO DAILY 06/12/23 [History Last Taken Unknown] metoprolol tartrate 50 mg tablet (Lopressor) 50 mg PO BID 06/12/23 [History Last Taken Unknown] Allergy/AdvReac Type Severity Reaction Status Date / Time No Known Allergies Allergy Verified 06/12/23 17:47 Social History Smoking Status: Current every day smoker tobacco type: cigarettes ROS Review of Systems ROS Unobtainable: due to mental status Physical Exam Const alert, oriented x3, no apparent distress and average body habitus General Appearance: cooperative, well kempt and well developed Orientation / Consciousness: awake, oriented to person, oriented to place and oriented to time HEENT normocephalic, head/scalp atraumatic and moist oral mucous membranes Eyes PERRL, EOMs intact bilaterally and conjunctivae normal Neck supple, no JVD, thyroid normal and no carotid bruits General: trachea midline Resp normal respiratory effort, no retractions and no use of accessory muscles Resp Narrative: Breath sounds are distant bilaterally Auscultation: Negative for rales, rhonchi or wheezes Cardio regular rate, regular rhythm, S1 normal heart sound, S2 normal heart sound, no murmurs, no rub and no gallops GI normal to inspection, nondistended, normoactive bowel sounds, soft to palpation, non-tender and non-distended Extremity no clubbing, cyanosis or edema Skin no rashes or lesions noted General Skin Exam: no breakdown Neuro oriented x3, CN's II-XII intact bilaterally, moves all extremities, no focal motor deficits and no sensory deficits noted Sensorium / Orientation: awake and alert Speech: speech normal Psych affect normal Lab / Micro Data 06/15/23 03:25 06/15/23 03:25 Micro: Microbiology 06/13/23 06:30 Blood Culture (Wb) - Right Forearm Blood Culture - Preliminary No growth in 48 hours. 06/13/23 06:25 Blood Culture (Wb) - Left Forearm Blood Culture - Preliminary No growth in 48 hours. Rhythm Strip Rhythm Strip: A-fib Rate: 82 Imaging Radiology Impression Echocardiogram 06/15/23 06:51 Interpretation Summary The estimated ejection fraction is 65 %. No evidence for diastolic dysfunction. Trivial mitral valve insufficiency. Ordering Physician: Pablito Rothman Referring Physician: [facility] Performed By: Tenisha Moeller, PABLO, RVT Assessment & Plan Assessment/Plan (1) Anemia: QUALIFIERS: Anemia type: unspecified type Qualified Code(s): D64.9 - Anemia, unspecified PLAN: 73-year-old gentleman with COPD, hyponatremia status post acute hypoxic respiratory failure needing intubation. Patient was discovered to have a significant iron deficiency anemia. Patient is a patient's agreed to undergo colonoscopy for evaluation of his anemia. Patient and patient's were explained alternatives, risk, benefits include not withstanding bleeding, infection, sepsis, perforation, need for emergent urgent . He will have an ASA of 3. Charges/Coding Visit Charges Inpatient E&M: 49914 Init Hosp L3
[2023-06-15] MEDS: Electrolyte Solution/Peg's 4000 ML PO (15:26)
--- NOTE | 2023-06-15 17:47 | PCM.PN.HOSP ---
Reason for Visit Reason for Visit: Diagnoses Anemia, unspecified (06/12/23) Hypo-osmolality and hyponatremia (06/12/23) Chronic obstructive pulmonary disease with (acute) exacerbation (06/12/23) Unspecified asthma with (acute) exacerbation (06/12/23) Acute respiratory failure with hypoxia (06/12/23) Unspecified fall, initial encounter (06/12/23) Unspecified place in unspecified non-institutional (private) residence as the place of occurrence of the external cause (06/12/23) Subjective Subjective Patient was seen and examined today, I had a discussion with him concerning his anemia which appears to be iron deficiency anemia, I told him that I would recommend getting a colonoscope-I gave him the choice of getting it done while he was in the hospital here or done as an outpatient and his and him felt that it would be better off to get it done this admission. He does not remember being told he has ever been anemic. Objective Data Objective Data Vital Signs: Vital Signs Temp Pulse Resp BP Pulse Ox O2 Del Method O2 Flow Rate 98.4 F 80 16 149/78 H 92 Nasal Cannula 2 06/15/23 14:00 06/15/23 14:00 06/15/23 14:00 06/15/23 14:00 06/15/23 14:00 06/15/23 14:00 06/15/23 14:00 FiO2 45 06/14/23 06:00 Oxygen Flow Rate (L/min) 2 Oxygen Delivery Method Nasal Cannula Weight: 87.5 kg Body Mass Index (BMI) 27.6 Intake & Output: Intake and Output for Last 24 Hours 06/13/23 06/14/23 06/15/23 23:59 23:59 23:59 Intake Total 2130.37 / 2156.14 1250.27 / 1250.27 1370 / 1370 Output Total 1900 / 1900 1974 / 1974 1125 / 1125 Balance 230.37 / 256.14 -724.73 / -724.73 245 / 245 Lab / Micro Data 06/15/23 03:25 06/15/23 03:25 Labs: Laboratory Results - last 24 hr 06/15/23 03:25: WBC 8.0, RBC 3.49 L, Hgb 8.2 L, Hct 27.4 L, MCV 78.5 L, MCH 23.5 L, MCHC 29.9 L, RDW Std Deviation 51.9 H, RDW Coeff of Linda 18.2 H, Plt Count 213, MPV 9.9, Immature Gran % (Auto) 0.500, Neut % (Auto) 89.1 H, Lymph % (Auto) 3.4 L, [place] % (Auto) 7.0, Eos % (Auto) 0.0, Baso % (Auto) 0.0, Absolute Neuts (auto) 7.2, Absolute Lymphs (auto) 0.27 L, Nucleated RBC % 0.4, Sodium 133 L, Potassium 4.9, Chloride 93 L, Carbon Dioxide 37.0 H, Anion Gap 3 L, BUN 41 H, Creatinine 1.08, Estim Creat Clear Calc 66.57, Est GFR (MDRD) Af Amer 86, Est GFR (MDRD) Non-Af 71, BUN/Creatinine Ratio 38.0 H, Glucose 133 H, Calcium 8.6, Iron 16 L Micro: Microbiology 06/13/23 06:30 Blood Culture (Wb) - Right Forearm Blood Culture - Preliminary No growth in 48 hours. 06/13/23 06:25 Blood Culture (Wb) - Left Forearm Blood Culture - Preliminary No growth in 48 hours. 06/13/23 06:30 Urine Catheter - Portillo Urine Culture - Final Culture exhibits no growth. 06/13/23 07:10 Mucosa - Nasopharyngeal Respiratory Panel (PCR) - Final 06/12/23 18:37 Mucosa - Nasopharyngeal SARS-CoV-2, Influenza & RSV (PCR) - Final Radiography Diagnostic Testing: Radiology Impression Echocardiogram 06/15/23 06:51 Interpretation Summary The estimated ejection fraction is 65 %. No evidence for diastolic dysfunction. Trivial mitral valve insufficiency. Ordering Physician: Pablito Rothman Referring Physician: [facility] Performed By: Tenisha Moeller, PABLO, RVT Rhythm Strip Rhythm Strip: A-fib Rate: 82 Physical Exam Const alert, oriented x3, no apparent distress and average body habitus General Appearance: cooperative, well kempt and well developed Orientation / Consciousness: awake, oriented to person, oriented to place and oriented to time HEENT normocephalic, head/scalp atraumatic and moist oral mucous membranes Eyes PERRL, EOMs intact bilaterally and conjunctivae normal Neck supple, no JVD, thyroid normal and no carotid bruits General: trachea midline Resp normal respiratory effort, no retractions and no use of accessory muscles Resp Narrative: Breath sounds are distant bilaterally Auscultation: Negative for rales, rhonchi or wheezes Cardio regular rate, regular rhythm, S1 normal heart sound, S2 normal heart sound, no murmurs, no rub and no gallops GI normal to inspection, nondistended, normoactive bowel sounds, soft to palpation, non-tender and non-distended Extremity no clubbing, cyanosis or edema Skin no rashes or lesions noted General Skin Exam: no breakdown Neuro oriented x3, CN's II-XII intact bilaterally, moves all extremities, no focal motor deficits and no sensory deficits noted Sensorium / Orientation: awake and alert Speech: speech normal Psych affect normal Assessment & Plan Assessment/Plan (1) Acute hypoxic respiratory failure: PLAN: Plan 1. Acute on chronic hypercapnic respiratory failure secondary to COPD exacerbation-patient is currently on nasal cannula oxygen at 2 L, he appears comfortable #2 anemia-etiology unclear-iron deficiency-patient was given IV iron today, he will undergo colonoscopy tomorrow. #3 essential hypertension-patient's blood pressure is being monitored, patient is now taking Zestril, hydrochlorothiazide, and Lopressor #4 COPD exacerbation-patient is on aerosol treatments and IV Solu-Medrol Total clinical time spent by myself addressing the patient's medical issues, reviewing all this data, and collaborating with patient's care team: 35 minutes Charges/Coding Visit Charges Inpatient E&M: 77287 Subs Hosp L2
[2023-06-16] VITALS (15 sets, daily range): BP systolic 119–146; BP diastolic 62–74; PULSE 74–97; RESP 14–20; TEMP 36.6–37.4; O2SAT 92–100
[2023-06-16] MEDS: Ipratropium/Albuterol Sulfate 3 ML AMPUL.NEB INHALATION ×3 (01:22→19:07)
[2023-06-16] MEDS: 0.9% Saline Lock 10 ML Syringe IV (06:44)
[2023-06-16] MEDS: Piperacil/Tazobactam 3.375 GM in 0.9% Normal Saline (50mL MB+) 50 ML IV ×2 (06:44→14:23)
[2023-06-16] MEDS: Metoprolol Tartrate 50 MG Tablet PO ×2 (10:06→20:27)
[2023-06-16] MEDS: Lisinopril 20 MG Tablet PO (10:07)
[2023-06-16] MEDS: hydroCHLOROthiazide 12.5mg 12.5 MG PO (10:07)
[2023-06-16] MEDS: Cholecalciferol (VIT D3) 25 MCG TABLET (1,000 UNITS) PO (10:07)
[2023-06-16] MEDS: Pantoprazole Sodium 40 MG in 0.9% Normal Saline (100mL MB+) 100 ML 330 MG IV (11:15)
--- NOTE | 2023-06-16 12:27 | NURSING ---
off floor at this time for colonoscopy
--- NOTE | 2023-06-16 13:48 | OP.COLON_ITS ---
Patient Name: Mark Triana Procedure Date: 06/16/2023 1:28 PM Date of : 1950 Age: 73 Procedure: Colonoscopy Indications: Iron deficiency anemia Providers: Jayesh Gómez DO Medicines: Monitored Anesthesia Care Patient Profile: This is a 73 year old male. Refer to note in patient chart for documentation of history and physical. Last Colonoscopy: date unknown. Unable to locate last colonoscopy report. Complications: No immediate complications. Procedure: Pre-Anesthesia Assessment: - Prior to the procedure, a History and Physical was performed, and patient medications and allergies were reviewed. The patient is competent. The risks and benefits of the procedure and the sedation options and risks were discussed with the patient. All questions were answered and informed consent was obtained. Patient identification and proposed procedure were verified by the physician in the pre-procedure area. Mental Status Examination: alert and oriented. Airway Examination: normal oropharyngeal airway and neck mobility. Respiratory Examination: clear to auscultation. CV Examination: normal. Prophylactic Antibiotics: The patient does not require prophylactic antibiotics. Prior Anticoagulants: The patient has taken no anticoagulant or antiplatelet agents. ASA Grade Assessment: II - A patient with mild systemic disease. After reviewing the risks and benefits, the patient was deemed in satisfactory condition to undergo the procedure. The anesthesia plan was to use monitored anesthesia care (MAC). Immediately prior to administration of medications, the patient was re-assessed for adequacy to receive sedatives. The heart rate, respiratory rate, oxygen saturations, blood pressure, adequacy of pulmonary ventilation, and response to care were monitored throughout the procedure. The physical status of the patient was re-assessed after the procedure. After I obtained informed consent, the scope was passed under direct vision. Throughout the procedure, the patient's blood pressure, pulse, and oxygen saturations were monitored continuously. The Colonoscope was introduced through the anus and advanced to the hepatic flexure. The colonoscopy was performed without difficulty. The patient tolerated the procedure well. The quality of the bowel preparation was poor. Anatomical landmarks were photographed. Scope In: 1:41:37 PM Scope Out: 1:43:05 PM Total Procedure Duration Time 0 hours 1 minute 28 seconds Findings: The perianal and digital rectal examinations were normal. Multiple small and large-mouthed diverticula were found in the recto-sigmoid colon, sigmoid colon, descending colon and splenic flexure. Extensive amounts of stool was found in the rectum, in the recto-sigmoid colon, in the sigmoid colon, in the descending colon, at the splenic flexure, in the transverse colon, at the hepatic flexure and in the ascending colon, precluding visualization. Impression: - Preparation of the colon was poor. - Diverticulosis in the recto-sigmoid colon, in the sigmoid colon, in the descending colon and at the splenic flexure. - No specimens collected. Recommendation: - Return patient to ICU for ongoing care. - Advance diet as tolerated. - Continue present medications. - Repeat colonoscopy because the bowel preparation was poor. Procedure Code(s): --- Professional --- 11860, 53, Colonoscopy, flexible; diagnostic, including collection of specimen(s) by brushing or washing, when performed (separate procedure) CPT copyright 2021 [employer]. All rights reserved. The codes documented in this report are preliminary and upon pre coder review may be revised to meet current compliance requirements. Jayesh Gómez DO 06/16/2023 1:47:35 PM This report has been signed electronically. Number of Addenda: 0 Note Initiated On: 06/16/2023 1:28 PM
--- NOTE | 2023-06-16 13:48 | OP.CCLET_ITS ---
06/16/2023 [facility] Re : Colonoscopy procedure for Mark [facility] This procedure was performed on Friday, June 16, 2023. My impressions and recommendations are as follows: Impressions : - Preparation of the colon was poor. - Diverticulosis in the recto-sigmoid colon, in the sigmoid colon, in the descending colon and at the splenic flexure. - No specimens collected. Recommendations : - Return patient to ICU for ongoing care. - Advance diet as tolerated. - Continue present medications. - Repeat colonoscopy because the bowel preparation was poor. My findings are described in the full procedure note, which is enclosed. If I can be of further assistance, please feel free to contact me at . Sincerely, Jayesh Gómez, 06/16/2023 1:47:35 PM This report has been signed electronically.
--- NOTE | 2023-06-16 13:55 | PN.HOSP_ITS ---
Reason for Visit Reason for Visit: Diagnoses Anemia, unspecified (06/12/23) Hypo-osmolality and hyponatremia (06/12/23) Chronic obstructive pulmonary disease with (acute) exacerbation (06/12/23) Unspecified asthma with (acute) exacerbation (06/12/23) Acute respiratory failure with hypoxia (06/12/23) Unspecified fall, initial encounter (06/12/23) Unspecified place in unspecified non-institutional (private) residence as the place of occurrence of the external cause (06/12/23) Subjective Subjective Was seen and examined today, he is scheduled to undergo a colonoscopy today and possibly an EGD. Patient is now on room air. Objective Data Objective Data Vital Signs: Vital Signs Temp Pulse Resp BP Pulse Ox O2 Del Method O2 Flow Rate 98.7 F 81 16 119/69 97 Room Air 2 06/16/23 13:50 06/16/23 13:50 06/16/23 13:50 06/16/23 13:50 06/16/23 13:50 06/16/23 13:50 06/16/23 12:22 FiO2 45 06/14/23 06:00 Oxygen Flow Rate (L/min) 2 Oxygen Delivery Method Room Air Weight: 87.5 kg Body Mass Index (BMI) 27.6 Intake & Output: Intake and Output for Last 24 Hours 06/14/23 06/15/23 06/16/23 23:59 23:59 23:59 Intake Total 1250.27 / 1250.27 1830 / 1830 210 / 210 Output Total 1974 / 1974 1125 / 1575 1200 / 1200 Balance -724.73 / -724.73 705 / 255 -990 / -990 Lab / Micro Data 06/15/23 03:25 06/15/23 03:25 Micro: Microbiology 06/13/23 06:30 Blood Culture (Wb) - Right Forearm Blood Culture - Preliminary No growth in 48 hours. 06/13/23 06:25 Blood Culture (Wb) - Left Forearm Blood Culture - Preliminary No growth in 48 hours. 06/13/23 06:30 Urine Catheter - Portillo Urine Culture - Final Culture exhibits no growth. 06/13/23 07:10 Mucosa - Nasopharyngeal Respiratory Panel (PCR) - Final 06/12/23 18:37 Mucosa - Nasopharyngeal SARS-CoV-2, Influenza & RSV (PCR) - Final Radiography Diagnostic Testing: Radiology Impression Echocardiogram 06/15/23 06:51 Interpretation Summary The estimated ejection fraction is 65 %. No evidence for diastolic dysfunction. Trivial mitral valve insufficiency. Ordering Physician: Pablito Rothman Referring Physician: [facility] Performed By: Tenisha Moeller, PABLO, RVT Rhythm Strip Rhythm Strip: A-fib Rate: 82 Physical Exam Const alert, oriented x3, no apparent distress and average body habitus General Appearance: cooperative, well kempt and well developed Orientation / Consciousness: awake, oriented to person, oriented to place and oriented to time HEENT normocephalic, head/scalp atraumatic and moist oral mucous membranes Eyes PERRL, EOMs intact bilaterally and conjunctivae normal Neck supple, no JVD, thyroid normal and no carotid bruits General: trachea midline Resp normal respiratory effort, no retractions, no use of accessory muscles and clear to auscultation bilaterally Auscultation: Negative for rales, rhonchi or wheezes Cardio S1 normal heart sound, S2 normal heart sound, no murmurs, no rub and no gallops Cardio Narrative: Heart rate and rhythm is regular GI normal to inspection, nondistended, normoactive bowel sounds, soft to palpation, non-tender and non-distended Extremity no clubbing, cyanosis or edema Skin no rashes or lesions noted General Skin Exam: no breakdown Neuro oriented x3, CN's II-XII intact bilaterally, moves all extremities, no focal motor deficits and no sensory deficits noted Sensorium / Orientation: awake and alert Speech: speech normal Psych affect normal Assessment & Plan Assessment/Plan (1) Acute exacerbation of COPD with asthma: (2) Acute hypoxic respiratory failure: PLAN: Plan 1. Acute on chronic hypercapnic respiratory failure secondary to COPD exacerbation-patient is currently on room air #2 anemia-etiology unclear-iron deficiency-patient was given IV iron today, he will undergo colonoscopy #3 essential hypertension-patient's blood pressure is being monitored, patient is now taking Zestril, hydrochlorothiazide, and Lopressor #4 COPD exacerbation-patient is on aerosol treatments and IV Solu-Medrol Total clinical time spent by myself addressing the patient's medical issues, reviewing all this data, and collaborating with patient's care team: 25 minutes Charges/Coding Visit Charges Inpatient E&M: 40123 Subs Hosp L1
[2023-06-16] MEDS: Lactulose 20 GM/30 ML UDC 30 GM PO (16:13)
[2023-06-16] MEDS: Sodium Ferric Gluconat/Sucrose 250 MG in 0.9% Normal Saline (250mL Bag) 250 ML 135 MG IV (16:14)
[2023-06-16] MEDS: Amox/Clavulanate 875 MG Tablet PO (16:14)
[2023-06-16] MEDS: Bisacodyl 5 MG Tablet 20 MG PO (16:14)
[2023-06-17] VITALS (10 sets, daily range): BP systolic 124–162; BP diastolic 76–84; PULSE 73–98; RESP 16–20; TEMP 36.6–37.1; O2SAT 93–98; BMI 28.0
[2023-06-17 03:50] LABS: Absolute Lymphocyte Count 0.48 X10^3/uL (0.83-4.51); Absolute Neutrophil Count 5.3 X10^3/uL (2.0-7.7); Basophil# 0.01 X10^3/uL; Basophil% 0.2 % (0-1); Eosinophil# 0.01 X10^3/uL; Eosinophils% 0.2 % (0-5); Hematocrit 26.6 % (40-54); Hemoglobin 7.6 g/dL (13.0-16.5); Lymphocyte # 0.48 X10^3/ul (0.83-4.51); Lymphocyte % 7.6 % (19-41); Mean Corp Hgb Conc 28.6 g/dL (32-36); Mean Corpuscular Volume 80.4 fL (80-94); Mean Platelet Vol. 9.4 fl (6.2-12.0); Monocyte% 7.9 % (0-10); NRBC Flagged by Analyzer 0.3 % (0-5); Neutrophil % 83.6 % (47-70); POSITIVE DIFFERENTIAL YES; Platelet Count 187 K/mm3 (150-450); RBC Distribution Width CV 18.6 % (11.6-14.6); RBC Distribution Width SD 53.8 fl (35.1-43.9); Red Blood Count 3.31 M/mm3 (4.6-6.2); White Blood Count 6.3 K/mm3 (4.4-11.0)
[2023-06-17] MEDS: Amox/Clavulanate 875 MG Tablet PO ×2 (08:00→15:40)
[2023-06-17] MEDS: Cholecalciferol (VIT D3) 25 MCG TABLET (1,000 UNITS) PO (08:00)
[2023-06-17] MEDS: Lisinopril 20 MG Tablet PO (08:00)
[2023-06-17] MEDS: Metoprolol Tartrate 50 MG Tablet PO ×2 (08:00→22:37)
[2023-06-17] MEDS: CHLORHEXIDINE GLUC 2% CLOTH 1 EACH TOWELETTE TOPICAL (08:00)
[2023-06-17] MEDS: hydroCHLOROthiazide 12.5mg 12.5 MG PO (08:01)
[2023-06-17] MEDS: Aspirin 81 MG TAB.CHEW PO (08:01)
[2023-06-17] MEDS: 0.9% Saline Lock 10 ML Syringe IV ×3 (08:09→22:39)
[2023-06-17] MEDS: Pantoprazole Sodium 40 MG in 0.9% Normal Saline (100mL MB+) 100 ML 330 MG IV (08:09)
[2023-06-17] MEDS: Enoxaparin 40 MG/0.4 ML Syringe SC (09:17)
[2023-06-17] MEDS: Polyethylene Glycol 3350 BOWEL PREP PO ×2 (10:43→22:36)
[2023-06-17] MEDS: Ipratropium/Albuterol Sulfate 3 ML AMPUL.NEB INHALATION ×2 (14:08→19:22)
--- NOTE | 2023-06-17 14:37 | PCM.PN.HOSP ---
Reason for Visit Reason for Visit: Diagnoses Anemia, unspecified (06/12/23) Hypo-osmolality and hyponatremia (06/12/23) Chronic obstructive pulmonary disease with (acute) exacerbation (06/12/23) Unspecified asthma with (acute) exacerbation (06/12/23) Acute respiratory failure with hypoxia (06/12/23) Unspecified fall, initial encounter (06/12/23) Unspecified place in unspecified non-institutional (private) residence as the place of occurrence of the external cause (06/12/23) Subjective Subjective Patient was seen and examined today, his hemoglobin today was 7.6. He will be given a prep for colonoscopy tomorrow, his colonoscopy yesterday was incomplete due to poor prep. Objective Data Objective Data Vital Signs: Vital Signs Temp Pulse Resp BP Pulse Ox O2 Del Method O2 Flow Rate 98.3 F 76 20 H 154/78 H 93 Nasal Cannula 2 06/17/23 14:09 06/17/23 14:09 06/17/23 14:09 06/17/23 14:09 06/17/23 14:09 06/17/23 14:09 06/17/23 14:09 FiO2 45 06/14/23 06:00 Oxygen Flow Rate (L/min) 2 Oxygen Delivery Method Nasal Cannula Weight: 88.6 kg Body Mass Index (BMI) 28.0 Intake & Output: Intake and Output for Last 24 Hours 06/15/23 06/16/23 06/17/23 23:59 23:59 23:59 Intake Total 1830 / 1830 1058.75 / 1058.75 1910 / 1910 Output Total 1125 / 1575 1375 / 1675 800 / 800 Balance 705 / 255 -316.25 / -616.25 1110 / 1110 Lab / Micro Data 06/17/23 03:40 06/15/23 03:25 Labs: Laboratory Results - last 24 hr 06/17/23 03:40: WBC 6.3, RBC 3.31 L, Hgb 7.6 L, Hct 26.6 L, MCV 80.4, MCH 23.0 L, MCHC 28.6 L, RDW Std Deviation 53.8 H, RDW Coeff of Linda 18.6 H, Plt Count 187, MPV 9.4, Immature Gran % (Auto) 0.500, Neut % (Auto) 83.6 H, Lymph % (Auto) 7.6 L, [place] % (Auto) 7.9, Eos % (Auto) 0.2, Baso % (Auto) 0.2, Absolute Neuts (auto) 5.3, Absolute Lymphs (auto) 0.48 L, Nucleated RBC % 0.3 Micro: Microbiology 06/13/23 06:30 Blood Culture (Wb) - Right Forearm Blood Culture - Preliminary No growth in 48 hours. 06/13/23 06:25 Blood Culture (Wb) - Left Forearm Blood Culture - Preliminary No growth in 48 hours. 06/13/23 06:30 Urine Catheter - Portillo Urine Culture - Final Culture exhibits no growth. 06/13/23 07:10 Mucosa - Nasopharyngeal Respiratory Panel (PCR) - Final 06/12/23 18:37 Mucosa - Nasopharyngeal SARS-CoV-2, Influenza & RSV (PCR) - Final Rhythm Strip Rhythm Strip: A-fib Rate: 82 Physical Exam Const alert, oriented x3, no apparent distress and average body habitus General Appearance: cooperative, well kempt and well developed Orientation / Consciousness: awake, oriented to person, oriented to place and oriented to time HEENT normocephalic and moist oral mucous membranes Eyes PERRL, EOMs intact bilaterally and conjunctivae normal Neck supple, no JVD, thyroid normal and no carotid bruits General: trachea midline Resp normal respiratory effort and clear to auscultation bilaterally Auscultation: Negative for rales, rhonchi or wheezes Cardio regular rate, regular rhythm, no murmurs, no rub and no gallops GI normal to inspection, nondistended, normoactive bowel sounds, soft to palpation, non-tender and non-distended Extremity no clubbing, cyanosis or edema Skin no rashes or lesions noted General Skin Exam: no breakdown Neuro oriented x3, CN's II-XII intact bilaterally, no focal motor deficits and no sensory deficits noted Sensorium / Orientation: awake and alert Speech: speech normal Psych affect normal Assessment & Plan Assessment/Plan (1) Acute exacerbation of COPD with asthma: PLAN: Plan 1. Acute on chronic hypercapnic respiratory failure secondary to COPD exacerbation-patient is currently on 2 L, he may need oxygen set up at his home at the time of discharge, patient does have [employer] insurance. #2 anemia-etiology unclear-iron deficiency-patient was given IV iron today, he will undergo colonoscopy again tomorrow #3 essential hypertension-patient's blood pressure is being monitored, patient is now taking Zestril, hydrochlorothiazide, and Lopressor #4 COPD exacerbation-patient is on aerosol treatments and IV Solu-Medrol Total clinical time spent by myself addressing the patient's medical issues, reviewing all this data, and collaborating with patient's care team: 25 minutes Charges/Coding Visit Charges Inpatient E&M: 24828 Subs Hosp L1
[2023-06-17] MEDS: Sodium Ferric Gluconat/Sucrose 250 MG in 0.9% Normal Saline (250mL Bag) 250 ML 135 MG IV (15:40)
[2023-06-17] MEDS: Bisacodyl 5 MG Tablet 20 MG PO ×2 (17:21→22:38)
[2023-06-18] VITALS (20 sets, daily range): BP systolic 105–148; BP diastolic 58–84; PULSE 78–106; RESP 12–24; TEMP 36.2–37.2; O2SAT 93–99; BMI 29.3
[2023-06-18] MEDS: Ipratropium/Albuterol Sulfate 3 ML AMPUL.NEB INHALATION ×4 (01:39→18:32)
[2023-06-18 06:01] LABS: Absolute Lymphocyte Count 0.37 X10^3/uL (0.83-4.51); Absolute Neutrophil Count 7.3 X10^3/uL (2.0-7.7); Hematocrit 27.7 % (40-54); Lymphocyte # 0.37 X10^3/ul (0.83-4.51); Lymphocyte % 4.5 % (19-41); Mean Corp Hgb Conc 28.9 g/dL (32-36); Mean Corpuscular Hgb 23.2 pg (27.0-32.0); Mean Corpuscular Volume 80.3 fL (80-94); Mean Platelet Vol. 10.1 fl (6.2-12.0); Monocyte% 6.1 % (0-10); NRBC Flagged by Analyzer 0 % (0-5); Neutrophil # 7.32 X10^3/uL (2.7-7.7); Neutrophil % 88.9 % (47-70); POSITIVE DIFFERENTIAL YES; Platelet Count 179 K/mm3 (150-450); RBC Distribution Width CV 18.6 % (11.6-14.6); RBC Distribution Width SD 53.1 fl (35.1-43.9); Red Blood Count 3.45 M/mm3 (4.6-6.2); White Blood Count 8.2 K/mm3 (4.4-11.0)
[2023-06-18 06:21] LABS: Anion Gap 4 (5-15); BUN 12 mg/dL (7-18); BUN/Creat Ratio 22.7 RATIO (10-20); Calcium,Total 8.4 mg/dL (8.5-10.1); Chloride 92 mmol/L (98-107); Creatinine, Serum 0.53 mg/dL (0.70-1.30); EST Glomerular Filtration Rate 162 mL/min (>60); Est Glom Filt Rate - Afr Amer 196 mL/min (>60); Estimated Creatinine Clearance 91.32 ml/min; Glucose 136 mg/dL (74-106); Potassium 3.7 mmol/L (3.5-5.1); Sodium Level 131 mmol/L (136-145)
--- NOTE | 2023-06-18 07:37 | PCM.PN.HOSP ---
Reason for Visit Reason for Visit: Diagnoses Anemia, unspecified (06/12/23) Hypo-osmolality and hyponatremia (06/12/23) Chronic obstructive pulmonary disease with (acute) exacerbation (06/12/23) Unspecified asthma with (acute) exacerbation (06/12/23) Acute respiratory failure with hypoxia (06/12/23) Unspecified fall, initial encounter (06/12/23) Unspecified place in unspecified non-institutional (private) residence as the place of occurrence of the external cause (06/12/23) Objective Data Objective Data Vital Signs: Vital Signs Temp Pulse Resp BP Pulse Ox O2 Del Method O2 Flow Rate 98 F 95 16 133/84 H 99 Nasal Cannula 2 06/18/23 03:30 06/18/23 07:21 06/18/23 07:21 06/18/23 03:30 06/18/23 07:21 06/18/23 07:21 06/18/23 07:21 FiO2 45 06/14/23 06:00 Oxygen Flow Rate (L/min) 2 Oxygen Delivery Method Nasal Cannula Weight: 204 lb 9.423 oz Body Mass Index (BMI) 29.3 Intake & Output: Intake and Output for Last 24 Hours 06/16/23 06/17/23 06/18/23 23:59 23:59 23:59 Intake Total 1058.75 / 1058.75 4130 / 4130 1600 / 1600 Output Total 1375 / 1675 1550 / 1550 1100 / 1100 Balance -316.25 / -616.25 2580 / 2580 500 / 500 Lab / Micro Data 06/18/23 05:05 06/18/23 05:05 Labs: Laboratory Results - last 24 hr 06/18/23 05:05: WBC 8.2, RBC 3.45 L, Hgb 8.0 L, Hct 27.7 L, MCV 80.3, MCH 23.2 L, MCHC 28.9 L, RDW Std Deviation 53.1 H, RDW Coeff of Linad 18.6 H, Plt Count 179, MPV 10.1, Immature Gran % (Auto) 0.500, Neut % (Auto) 88.9 H, Lymph % (Auto) 4.5 L, [place] % (Auto) 6.1, Eos % (Auto) 0.0, Baso % (Auto) 0.0, Absolute Neuts (auto) 7.3, Absolute Lymphs (auto) 0.37 L, Nucleated RBC % 0, Sodium 131 L, Potassium 3.7, Chloride 92 L, Carbon Dioxide 35.0 H, Anion Gap 4 L, BUN 12, Creatinine 0.53 L, Estim Creat Clear Calc 91.32, Est GFR (MDRD) Af Amer 196, Est GFR (MDRD) Non-Af 162, BUN/Creatinine Ratio 22.7 H, Glucose 136 H, Calcium 8.4 L Micro: Microbiology 06/13/23 06:30 Blood Culture (Wb) - Right Forearm Blood Culture - Final No growth in 5 days. 06/13/23 06:25 Blood Culture (Wb) - Left Forearm Blood Culture - Final No growth in 5 days. 06/13/23 06:30 Urine Catheter - Portillo Urine Culture - Final Culture exhibits no growth. 06/13/23 07:10 Mucosa - Nasopharyngeal Respiratory Panel (PCR) - Final 06/12/23 18:37 Mucosa - Nasopharyngeal SARS-CoV-2, Influenza & RSV (PCR) - Final Rhythm Strip Rhythm Strip: A-fib Rate: 82 Physical Exam Narrative Seen and examined. Discussed with the near the bedside. Patient does not have acute complaint but mild short of breath on exertion. Weakness. Physical exam General: Alert, Oriented x3, Cooperative, BMI 29.4 kg/m?. HEENT: Atraumatic, PERRLA, EOMI, Normocephalic Oral: No Gingival or Mucosal Lesions/ Ulcerations Neck: Supple, No JVD, Negative Carotid Bruits Chest wall/Lungs: Air entry diminished in bilateral lung bases. No crepitation/rhonchi Cardiovascular: Regular rate, Regular Rhythm, Normal S1, Normal S2, No M/G/R Abdomen: Bowel Sounds Present, Soft, Non Tender, Non-Distended : No dysuria. No renal angle tenderness. No suprapubic tenderness. Extremities: Mild bilateral pitting leg edema, Capillary Refill Less than 3 Seconds Skin: No rashes, No breakdown Musculoskeletal: No Tenderness to Palpation of Joints or Extremities Neurological: Cranial nerves II-XII grossly intact, DTR 2+/4. No acute focal neurological deficit. Psych/Mental Status: Flat affect. Assessment & Plan Assessment/Plan (1) Acute exacerbation of COPD with asthma: PLAN: Plan This is 73-year-old gentleman was admitted with unresponsiveness, short of breath, has been coughing up for last few days. In the ED he was found to be in acute exacerbation of COPD and metabolic encephalopathy due to pseudonarcotics and was intubated and put on ventilator. 1. Acute on chronic hypercapnic respiratory failure secondary to COPD exacerbation-patient is being admitted in PCU. He was extubated. Patient is currently on 2 L, he may need oxygen set up at his home at the time of discharge, patient does have [employer] insurance. Infectious workup including blood cultures x 2, urine culture, respiratory panel, SARS-CoV-2, influenza and RSV PCR are negative. PT and OT is ordered. Depending upon, authorization from [place], patient is open to go to rehab. #2 anemia-etiology unclear, most likely-iron deficiency-patient H&H is low 12/24.7. Platelet count 139,000. Patient had IV iron. EGD and colonoscopy planned for today. Discussed with Dr. Gómez. #3 essential hypertension-patient's blood pressure is being monitored, and controlled 116/62. Patient is now taking Zestril, hydrochlorothiazide, and Lopressor #4 COPD exacerbation-patient is on aerosol treatments and IV Solu-Medrol, Incentive spirometry and Pep Total time of the visit including total time spent in counseling or coordination of care, (more than 50% of the total time, spent in obtaining medical information from nurses and other ancillary care providers,explaining to the patient about labs, imaging, diagnosis and management of active complex medical conditions), life consultant, review of labs and imaging and clinical update given to patient's is 40 minutes. Charges/Coding Visit Charges Inpatient E&M: 85205 Subs Hosp L3
[2023-06-18] MEDS: Cholecalciferol (VIT D3) 25 MCG TABLET (1,000 UNITS) PO (08:10)
[2023-06-18] MEDS: Lisinopril 20 MG Tablet PO (08:10)
[2023-06-18] MEDS: Menthol/Lanolin/Calamine/Znox 113 GM Tube 1 APPLIC TOPICAL ×2 (08:10→23:11)
[2023-06-18] MEDS: 0.9% Saline Lock 10 ML Syringe IV ×2 (08:11→23:13)
[2023-06-18] MEDS: CHLORHEXIDINE GLUC 2% CLOTH 1 EACH TOWELETTE TOPICAL (08:11)
[2023-06-18] MEDS: hydroCHLOROthiazide 12.5mg 12.5 MG PO (08:11)
[2023-06-18] MEDS: Amox/Clavulanate 875 MG Tablet PO ×2 (08:11→17:28)
[2023-06-18] MEDS: Pantoprazole Sodium 40 MG in 0.9% Normal Saline (100mL MB+) 100 ML 330 MG IV (08:11)
[2023-06-18] MEDS: Metoprolol Tartrate 50 MG Tablet PO ×2 (08:12→23:10)
--- NOTE | 2023-06-18 10:13 | CASEMGMT ---
Discharge Planning A list of?SNF providers including quality and resource use data and consistent with the patient's preferred geographic region, medical needs, and insurance network was created in [employer] Guide.? This list was provided to the SW. Alondra Desir Discharge Planning Asst.
--- NOTE | 2023-06-18 10:32 | NURSING ---
off the floor at this time for scope
[2023-06-18] MEDS: Lactated Ringers 1,000 ML 15 ML IV (10:58)
--- NOTE | 2023-06-18 11:30 | IMM_PTH ---
PATHOLOGY RESULTS PATIENT: MARK MUÑIZ LOC: [facility] U#:[id number] AGE/SX: 73/M ROOM: [facility] RE06/12/[address]: Dr. Rosas Trujillo MD : 1950 BED: 1 DIS: 06/19/2023 SPEC #: [id number] RECD: 06/18/23 14:04 STATUS: URIEL REQ #: [id number] SHANNAN: 06/18/23 11:[address]: Jayesh Gómez DEPT: IMMUNOHISTOCHEMISTRY RECD BY: Tati Pastrana ENTERED: 06/18/23 14:06 SP TYPE: IMMUNO OTHR DR: MD Dr. Pablito Veras MD Dr. Derek Brown, DO Dr. David de Lorenzo, DO Dr. Gautam Baskaran, MD Dr. Yordanos Habtegebriel, MD Dr. Hemant Dand, MD Dr. Kimber Foust, MD Dr. Lamia Aljundi, MD Dr. Mark Tereletsky, DO Dr. Prakash Chand, MD Dr. Pavan Irukulla, MD Dr. Saad Farooqi, MD Dr. Vikram Anand, MD Dr. William Haden, MD [facility] Tissues: Stomach, NOS Procedures: H Pylori (initial) PHYSICIAN & INSTITUTION [place] [address] SPECIMEN INFORMATION: Tissue Source: A - Gastric ulcer Clinical Info: Anemia Specimen Number: [id number] CPT code: 87278 METHODOLOGY: Deparaffinized sections of prefer/formalin-fixed tissue or PAP/DQ stained slides are incubated with monoclonal/polyclonal antibodies/oligonucleotide probes. Localization is made via biotin free immunoperoxidase method. Appropriate controls are performed and reacted as expected. Results on target cell population are indicated in the following table: RESULTS: ANTIBODY / CLONE RESULT Block A H Pylori (polyclonal) negative These tests were developed and their performance characteristics determined by [facility]. They may not have been cleared or approved by the U.S. Food and Drug Administration. The FDA has determined that such clearance or approval is not necessary. The above immunohistochemical/dualISH markers are ordered and reviewed by the Pathologist. INTERPRETATION: A. Gastric ulcer, biopsy: Negative for Helicobacter pylori organisms. NICOLE:lorena 06/19/2023
--- NOTE | 2023-06-18 11:30 | COLBX_PTH ---
PATHOLOGY RESULTS PATIENT: MARK MUÑIZ LOC: [facility] U#:[id number] AGE/SX: 73/M ROOM: [facility] RE06/12/[address]: Dr. Rosas Trujillo MD : 1950 BED: 1 DIS: 06/19/2023 SPEC #: [id number] RECD: 06/18/23 13:57 STATUS: URIEL REQ #: [id number] SHANNAN: 06/18/23 11:[address]: Jayesh Gómez DEPT: SURGICAL PATHOLOGY RECD BY: Day Choudhary ENTERED: 06/18/23 13:58 SP TYPE: COLON BX OTHR DR: MD Dr. Pablito Veras MD Dr. Derek Brown, DO Dr. David de Lorenzo, DO Dr. Gautam Baskaran, MD Dr. Yordanos Habtegebriel, MD Dr. Hemant Dand, MD Dr. Kimber Foust, MD Dr. Lamia Aljundi, MD Dr. Mark Tereletsky, DO Dr. Prakash Chand, MD Dr. Pavan Irukulla, MD Dr. Saad Farooqi, MD Dr. Vikram Anand, MD Dr. William Haden, MD [facility] Tissues: Gastric mucous membrane Sigmoid colon biopsy Procedures: Surgery Specimen Level IV Comments: @ Ordering doctor for SUIV edited from to @ by SONYOD at 06/18/23 1406 @ Submitting doctor edited from to @ by RGOOD at 06/18/23 1406 HEADER OPERATION: Colonoscopy with biopsies, EGD with biopsy PRE-OP DIAGNOSIS: Anemia TISSUE SUBMITTED: A - Gastric ulcer biopsy, B - Sigmoid polyp biopsy x2 MICROSCOPIC DIAGNOSIS A. Gastric ulcer, biopsy: Mild gastritis. See microscopic description and comment. B. Sigmoid polyp x2, biopsy: Fragments of tubular adenoma x2. SJ:lorena 06/19/2023 COMMENT A. The results of immunohistochemistry for Helicobacter pylori will be reported separately ([id number]). MICROSCOPIC DESCRIPTION Slides are reviewed. A. The specimen shows fragments of gastric mucosa with chronic inflammatory cell infiltrates in the lamina propria consisting of lymphocytes and plasma cells, consistent with mild chronic gastritis. GROSS DESCRIPTION A - Received in fixative is one container labeled with the patient's name and designated gastric ulcer biopsy. The specimen consists of two irregular fragments of light mejia soft tissue that in aggregate measure 0.6 x 0.3 x 0.1 cm. The specimen is totally submitted in one cassette. B - Received in fixative is one container labeled with the patient's name and designated sigmoid polyp biopsy. The specimen consists of two irregular fragments of light mejia soft tissue that in aggregate measure 0.6 x 0.5 x 0.1 cm. The specimen is totally submitted in one cassette. / NICOLE:lorena 06/18/2023 TC:1 CPT: 00764 x2
[2023-06-18 11:46] LABS: Troponin-I HS 29 pg/mL (3.0-78.0)
--- NOTE | 2023-06-18 12:35 | OP.EGD_ITS ---
Patient Name: Mark Triana Procedure Date: 06/18/2023 12:04 PM Date of : 1950 Age: 73 Procedure: Upper GI endoscopy Indications: Iron deficiency anemia Providers: Jayesh Gómez DO Medicines: Monitored Anesthesia Care Patient Profile: This is a 73 year old male. Refer to note in patient chart for documentation of history and physical. Patient has symptoms of acute epigastric abdominal pain. Complications: No immediate complications. Procedure: Pre-Anesthesia Assessment: - Prior to the procedure, a History and Physical was performed, and patient medications and allergies were reviewed. The patient is competent. The risks and benefits of the procedure and the sedation options and risks were discussed with the patient. All questions were answered and informed consent was obtained. Patient identification and proposed procedure were verified in the pre-procedure area. Mental Status Examination: alert and oriented. Airway Examination: normal oropharyngeal airway and neck mobility. Respiratory Examination: clear to auscultation. CV Examination: normal. Prophylactic Antibiotics: The patient does not require prophylactic antibiotics. Prior Anticoagulants: The patient has taken no anticoagulant or antiplatelet agents. ASA Grade Assessment: IV - A patient with severe systemic disease that is a constant threat to life. After reviewing the risks and benefits, the patient was deemed in satisfactory condition to undergo the procedure. The anesthesia plan was to use monitored anesthesia care (MAC). Immediately prior to administration of medications, the patient was re-assessed for adequacy to receive sedatives. The heart rate, respiratory rate, oxygen saturations, blood pressure, adequacy of pulmonary ventilation, and response to care were monitored throughout the procedure. The physical status of the patient was re-assessed after the procedure. After obtaining informed consent, the endoscope was passed under direct vision. Throughout the procedure, the patient's blood pressure, pulse, and oxygen saturations were monitored continuously. The pediatric colonoscope was introduced through the mouth, and advanced to the second part of duodenum. The upper GI endoscopy was accomplished without difficulty. The patient tolerated the procedure well. Scope In: 12:08:53 PM Scope Out: 12:12:18 PM Total Procedure Duration Time 0 hours 3 minutes 25 seconds Findings: The examined esophagus was normal. Many non-bleeding linear gastric ulcers with no stigmata of bleeding were found in the gastric antrum. The largest lesion was 5 mm in largest dimension. Biopsies were taken with a cold forceps for histology. Verification of patient identification for the specimen was done. Biopsies were taken with a cold forceps for Helicobacter pylori testing. Verification of patient identification for the specimen was done. Estimated blood loss was minimal. Many oozing cratered duodenal ulcers with pigmented material were found in the duodenal bulb. The largest lesion was 7 mm in largest dimension. Area was successfully injected with 5 mL of a 0.1 mg/mL solution of epinephrine for drug delivery. Coagulation for hemostasis using heater probe was successful. Estimated blood loss was minimal. Impression: - Normal esophagus. - Non-bleeding gastric ulcers with no stigmata of bleeding. Biopsied. - Oozing duodenal ulcers with pigmented material. Injected. Treated with a heater probe. Recommendation: - Full liquid diet. - Continue present medications. - Pantoprazole 40 mg twice daily x 12 weeks then repeat endoscopy -Carafate liquid 1 g 3 times a day x 8 weeks - Await pathology results. - Repeat upper endoscopy in 3 months for surveillance. Procedure Code(s): --- Professional --- 25379, 59, Esophagogastroduodenoscopy, flexible, transoral; with control of bleeding, any method 06659, Esophagogastroduodenoscopy, flexible, transoral; with biopsy, single or multiple 29000, 59,51, Esophagogastroduodenoscopy, flexible, transoral; with directed submucosal injection(s), any substance CPT copyright 2022 [employer]. All rights reserved. The codes documented in this report are preliminary and upon customer insight analyst review may be revised to meet current compliance requirements. Jayesh Gómez DO 06/18/2023 12:34:56 PM This report has been signed electronically. Number of Addenda: 0 Note Initiated On: 06/18/2023 12:04 PM
--- NOTE | 2023-06-18 12:35 | OP.CCLET_ITS ---
06/18/2023 [facility] Re : Upper GI endoscopy procedure for Mark [facility] This procedure was performed on Sunday, June 18, 2023. My impressions and recommendations are as follows: Impressions : - Normal esophagus. - Non-bleeding gastric ulcers with no stigmata of bleeding. Biopsied. - Oozing duodenal ulcers with pigmented material. Injected. Treated with a heater probe. Recommendations : - Full liquid diet. - Continue present medications. - Pantoprazole 40 mg twice daily x 12 weeks then repeat endoscopy -Carafate liquid 1 g 3 times a day x 8 weeks - Await pathology results. - Repeat upper endoscopy in 3 months for surveillance. My findings are described in the full procedure note, which is enclosed. If I can be of further assistance, please feel free to contact me at . Sincerely, Jayesh Friend, 06/18/2023 12:34:56 PM This report has been signed electronically.
--- NOTE | 2023-06-18 12:38 | OP.COLON_ITS ---
Patient Name: Mark Triana Procedure Date: 06/18/2023 12:12 PM Date of : 1950 Age: 73 Procedure: Colonoscopy Indications: Iron deficiency anemia Providers: Jayesh Gómez DO Medicines: Monitored Anesthesia Care Patient Profile: This is a 73 year old male. Refer to note in patient chart for documentation of history and physical. Patient has symptoms of acute epigastric abdominal pain. Last Colonoscopy: date unknown. Unable to locate last colonoscopy report. Complications: No immediate complications. Procedure: Pre-Anesthesia Assessment: - Prior to the procedure, a History and Physical was performed, and patient medications and allergies were reviewed. The patient is competent. The risks and benefits of the procedure and the sedation options and risks were discussed with the patient. All questions were answered and informed consent was obtained. Patient identification and proposed procedure were verified in the pre-procedure area. Mental Status Examination: alert and oriented. Airway Examination: normal oropharyngeal airway and neck mobility. Respiratory Examination: clear to auscultation. CV Examination: normal. Prophylactic Antibiotics: The patient does not require prophylactic antibiotics. Prior Anticoagulants: The patient has taken no anticoagulant or antiplatelet agents. ASA Grade Assessment: IV - A patient with severe systemic disease that is a constant threat to life. After reviewing the risks and benefits, the patient was deemed in satisfactory condition to undergo the procedure. The anesthesia plan was to use monitored anesthesia care (MAC). Immediately prior to administration of medications, the patient was re-assessed for adequacy to receive sedatives. The heart rate, respiratory rate, oxygen saturations, blood pressure, adequacy of pulmonary ventilation, and response to care were monitored throughout the procedure. The physical status of the patient was re-assessed after the procedure. After I obtained informed consent, the scope was passed under direct vision. Throughout the procedure, the patient's blood pressure, pulse, and oxygen saturations were monitored continuously. The pediatric colonoscope was introduced through the anus and advanced to the terminal ileum. The colonoscopy was performed without difficulty. The patient tolerated the procedure well. The quality of the bowel preparation was adequate. Scope In: 12:16:28 PM Scope Withdrawal Time 0 hours 8 minutes 8 seconds Scope Out: 12:28:06 PM Total Procedure Duration Time 0 hours 11 minutes 38 seconds Findings: The perianal and digital rectal examinations were normal. Many small and large-mouthed diverticula were found in the recto-sigmoid colon and sigmoid colon. Two sessile polyps were found in the sigmoid colon. The polyps were 1 to 2 mm in size. These polyps were removed with a cold snare. Resection and retrieval were complete. Verification of patient identification for the specimen was done. Estimated blood loss was minimal. There was a very small hyperplastic polyp seen in the sigmoid colon and rectum area that did not need to be removed. The exam was otherwise without abnormality on direct and retroflexion views. Impression: - Diverticulosis in the recto-sigmoid colon and in the sigmoid colon. - Two 1 to 2 mm polyps in the sigmoid colon, removed with a cold snare. Resected and retrieved. - The examination was otherwise normal on direct and retroflexion views. Recommendation: - Return patient to ICU for ongoing care. - Resume previous diet. - Continue present medications. - Await pathology results. - Repeat colonoscopy is not recommended due to current age (66 years or older). Procedure Code(s): --- Professional --- 61138, Colonoscopy, flexible; with removal of tumor(s), polyp(s), or other lesion(s) by snare technique CPT copyright 2021 [employer]. All rights reserved. The codes documented in this report are preliminary and upon enterprise systems administrator review may be revised to meet current compliance requirements. Jayesh Gómez DO 06/18/2023 12:37:53 PM This report has been signed electronically. Number of Addenda: 0 Note Initiated On: 06/18/2023 12:12 PM
--- NOTE | 2023-06-18 12:38 | OP.CCLET_ITS ---
06/18/2023 [facility] Re : Colonoscopy procedure for Mark [facility] This procedure was performed on Sunday, June 18, 2023. My impressions and recommendations are as follows: Impressions : - Diverticulosis in the recto-sigmoid colon and in the sigmoid colon. - Two 1 to 2 mm polyps in the sigmoid colon, removed with a cold snare. Resected and retrieved. - The examination was otherwise normal on direct and retroflexion views. Recommendations : - Return patient to ICU for ongoing care. - Resume previous diet. - Continue present medications. - Await pathology results. - Repeat colonoscopy is not recommended due to current age (66 years or older). My findings are described in the full procedure note, which is enclosed. If I can be of further assistance, please feel free to contact me at . Sincerely, Jayesh Gómez, 06/18/2023 12:37:53 PM This report has been signed electronically.
--- NOTE | 2023-06-18 18:00 | CASEMGMT ---
Social Work Met with patient and , providing list of SNF choices generated from [employer], which include patient's geographical region and Medicare insurance network, Medicare quality data and star ratings. Discussed possible SNF level of care at discharge. Patient reports willing to consider this, so long as can change mind if feeling better at time of discharge, as preference is to go home. Explored whether patient would like a list of facilities contracted with the ID, or list given for Medicare. Patient reports does not care, so long as would be covered. Daughter arrived to room. Updated to reason for SW visit. Daughter asked if [facility]CU is on list, which this facility is. Daughter reports patient's had a good experience at the TCU. Patient brightened then, and expressed that likes the TCU and would be willing to go to this facility. Educated to [facility] SNF benefits at 100% coverage for the first 20 days, then copay starting at day 21. Daughter expressed belief patient would be well enough before the 20 days is up. Referral sent to [facility] at [facility]. Plan: Anticipate SNF LOC at discharge, pending acceptance at [facility]. -RAYNA Munoz
[2023-06-19 01:42] VITALS: PULSE 88; RESP 16
[2023-06-19] MEDS: Ipratropium/Albuterol Sulfate 3 ML AMPUL.NEB INHALATION ×2 (01:42→06:59)
[2023-06-19 04:00] VITALS: BP 148/81; PULSE 83; RESP 16; TEMP 36.3; O2SAT 95
[2023-06-19 07:05] VITALS: PULSE 82; RESP 18
[2023-06-19 07:13] LABS: Absolute Lymphocyte Count 0.45 X10^3/uL (0.83-4.51); Absolute Neutrophil Count 6.8 X10^3/uL (2.0-7.7); Hematocrit 28.2 % (40-54); Hemoglobin 8.3 g/dL (13.0-16.5); Lymphocyte # 0.45 X10^3/ul (0.83-4.51); Lymphocyte % 5.8 % (19-41); Mean Corp Hgb Conc 29.4 g/dL (32-36); Mean Corpuscular Hgb 23.9 pg (27.0-32.0); Mean Corpuscular Volume 81.3 fL (80-94); Mean Platelet Vol. 9.9 fl (6.2-12.0); Monocyte# 0.48 X10^3/uL; Monocyte% 6.2 % (0-10); NRBC Flagged by Analyzer 0 % (0-5); Neutrophil # 6.79 X10^3/uL (2.7-7.7); Neutrophil % 87.4 % (47-70); POSITIVE DIFFERENTIAL YES; Platelet Count 178 K/mm3 (150-450); RBC Distribution Width CV 19.6 % (11.6-14.6); RBC Distribution Width SD 54.3 fl (35.1-43.9); Red Blood Count 3.47 M/mm3 (4.6-6.2); White Blood Count 7.8 K/mm3 (4.4-11.0)
[2023-06-19 07:32] LABS: Anion Gap 4 (5-15); BUN 15 mg/dL (7-18); BUN/Creat Ratio 20.5 RATIO (10-20); Calcium,Total 8.6 mg/dL (8.5-10.1); Chloride 93 mmol/L (98-107); Creatinine, Serum 0.73 mg/dL (0.70-1.30); EST Glomerular Filtration Rate 111 mL/min (>60); Est Glom Filt Rate - Afr Amer 134 mL/min (>60); Estimated Creatinine Clearance 91.32 ml/min; Glucose 139 mg/dL (74-106); Potassium 4.3 mmol/L (3.5-5.1); Sodium Level 130 mmol/L (136-145)
[2023-06-19 07:57] VITALS: O2SAT 93
[2023-06-19 09:10] VITALS: BP 108/77; PULSE 91
[2023-06-19] MEDS: Metoprolol Tartrate 50 MG Tablet PO (09:10)
[2023-06-19] MEDS: hydroCHLOROthiazide 12.5mg 12.5 MG PO (09:10)
[2023-06-19] MEDS: Cholecalciferol (VIT D3) 25 MCG TABLET (1,000 UNITS) PO (09:11)
[2023-06-19] MEDS: Lisinopril 20 MG Tablet PO (09:11)
[2023-06-19] MEDS: Enoxaparin 40 MG/0.4 ML Syringe SC (09:11)
[2023-06-19] MEDS: Amox/Clavulanate 875 MG Tablet PO (09:11)
[2023-06-19] MEDS: Aspirin 81 MG TAB.CHEW PO (09:12)
[2023-06-19] MEDS: Menthol/Lanolin/Calamine/Znox 113 GM Tube 1 APPLIC TOPICAL (09:12)
--- NOTE | 2023-06-19 09:46 | CASEMGMT ---
TCU can take patient. [facility] notified patient and his family that TCU can take him at discharge. OVI also let them know physician said he would send patient today. Family thanked [facility]. Plan: d/c to [facility] TCU under skilled level of care. Petra BARBOSA
[2023-06-19 10:00] VITALS: BP 136/82; PULSE 91; RESP 16; TEMP 36.6; O2SAT 96
--- NOTE | 2023-06-19 11:08 | TREXTCAR_ITS ---
Diet Diet Order/Speech Therapy: 06/18/23 13:45 Diet: Regular - General Is pt able to select menu?: Yes 06/20/23 Breakfast Diet: Nothing Per Oral Is pt able to select menu?: Yes Problem/Diagnosis (1) Acute exacerbation of COPD with asthma: Status: Chronic Code(s): J44.1 - Chronic obstructive pulmonary disease with (acute) exacerbation; J45.901 - Unspecified asthma with (acute) exacerbation Plan This is 73-year-old gentleman was admitted with unresponsiveness, short of breath, has been coughing up for last few days. In the ED he was found to be in acute exacerbation of COPD and metabolic encephalopathy due to pseudonarcotics and was intubated and put on ventilator. 1. Acute on chronic hypercapnic respiratory failure secondary to COPD exacerba tion-patient is being admitted in PCU. He was extubated. Patient is currently on 2 L, he may need oxygen set up at his home at the time of discharge, patient does have [employer] insurance. Infectious workup including blood cultures x 2, urine culture, respiratory panel, SARS-CoV-2, influenza and RSV PCR are negative. PT and OT is ordered. Depending upon, authorization from [place], patient is open to go to rehab. #2 anemia-etiology unclear, most likely-iron deficiency-patient H&H is low 8/27.7. Platelet count 139,000. Patient had IV iron. EGD and colonoscopy planned for today. Discussed with Dr. Gómez. #3 essential hypertension-patient's blood pressure is being monitored, and controlled 116/62. Patient is now taking Zestril, hydrochlorothiazide, and Lopressor #4 COPD exacerbation-patient is on aerosol treatments and IV Solu-Medrol, Incentive spirometry and Pep Total time of the visit including total time spent in counseling or coordination of care, (more than 50% of the total time, spent in obtaining medical information from nurses and other ancillary care providers,explaining to the patient about labs, imaging, diagnosis and management of active complex medical conditions), weight loss consultant, review of labs and imaging and clinical update given to patient's is 40 minutes. Allergies/Procedures Done in Hospital Allergies No Known Allergies Allergy (Verified 06/12/23 17:47) Dietary and Speech Recommendations Dietitian Recommendations/Changes: change diet to regular no added salt- texture/consistency modifications per RESEARCH SUPPORT SPECIALIST as needed. Discharge Plan Admission Admit Date/Time: 06/12/23 23:06 Attending Provider: Rosas Trujillo Primary Care Provider: [facility] Consulting Providers: Mehul Brooke; Donavan Villanueva; Pablito Rothman; Andrey Peterson; Rafy Cuevas; Gely Louis; Andrew Hunt; Silva Mcqueen; Jessie Aguilar; Rishabh Middleton; Arpit Lynch; Kilo Rogers; kO Watson; Mj Franks Discharge Orders/Prescriptions Prescriptions: No Action metoprolol tartrate [Lopressor] 50 mg tablet 50 mg PO BID lisinopril 40 mg tablet 40 mg PO DAILY hydrochlorothiazide 12.5 mg tablet 12.5 mg PO DAILY aspirin 81 mg capsule 81 mg PO DAILY cholecalciferol (vitamin D3) [Vitamin D3] 25 mcg (1,000 unit) capsule 25 mcg PO DAILY Referrals / Follow Up: [facility] [Primary Care Provider] -
--- NOTE | 2023-06-19 11:08 | PCM.TXEXTCAR ---
Diet Diet Order/Speech Therapy: 06/18/23 13:45 Diet: Regular - General Is pt able to select menu?: Yes 06/20/23 Breakfast Diet: Nothing Per Oral Is pt able to select menu?: Yes Routine Orders/Code Status Suppository Type: Dulcolax 10mg Suppository Frequency: Daily PRN Code Status: Full Code Therapies Weight Bearing: Weight bearing as tolerated Problem/Diagnosis (1) Acute exacerbation of COPD with asthma: Status: Chronic Code(s): J44.1 - Chronic obstructive pulmonary disease with (acute) exacerbation; J45.901 - Unspecified asthma with (acute) exacerbation Plan This is 73-year-old gentleman was admitted with unresponsiveness, short of breath, has been coughing up for last few days. In the ED he was found to be in acute exacerbation of COPD and metabolic encephalopathy due to pseudonarcotics and was intubated and put on ventilator. 1. Acute on chronic hypercapnic respiratory failure secondary to COPD exacerbation-patient is being admitted in PCU. He was extubated. Patient is currently on 2 L, he may need oxygen set up at his home at the time of discharge, patient does have [place] insurance. Infectious workup including blood cultures x 2, urine culture, respiratory panel, SARS-CoV-2, influenza and RSV PCR are negative. PT and OT is ordered. Depending upon, authorization from [place], patient is open to go to rehab. #2 anemia-etiology unclear, most likely-iron deficiency-patient H&H is low 8/27.7. Platelet count 139,000. Patient had IV iron. EGD and colonoscopy planned for today. Discussed with Dr. Gómez. #3 essential hypertension-patient's blood pressure is being monitored, and controlled 116/62. Patient is now taking Zestril, hydrochlorothiazide, and Lopressor #4 COPD exacerbation-patient is on aerosol treatments and IV Solu-Medrol, Incentive spirometry and Pep Total time of the visit including total time spent in counseling or coordination of care, (more than 50% of the total time, spent in obtaining medical information from nurses and other ancillary care providers,explaining to the patient about labs, imaging, diagnosis and management of active complex medical conditions), lean consultant, review of labs and imaging and clinical update given to patient's is 40 minutes. Allergies/Procedures Done in Hospital Allergies No Known Allergies Allergy (Verified 06/12/23 17:47) Type of Care/Length of Stay Estimated LOS: Convalescent Care Less Than 30 days Type of Care Needed: Skilled Rehab Potential: Good Prognosis: Good Additional Orders/Day of Discharge Day of Discharge: 06/19/23 Dietary and Speech Recommendations Dietitian Recommendations/Changes: change diet to regular no added salt- texture/consistency modifications per SHEETER WAXER OPERATOR as needed. Discharge Plan Admission Admit Date/Time: 06/12/23 23:06 Primary Reason for Your Visit: Acute hypoxic respiratory failure, COPD exacerbation. Severe anemia Attending Provider: Rosas Trujillo Primary Care Provider: [facility],[place] Consulting Providers: Mehul Brooke; Donavan Villanueva; Pablito Rothman; Andrey Peterson; Rafy Cuevas; Gely Louis; Andrew Hunt; Silva Mcqueen; Jessie Aguilar; Rishabh Middleton; Arpit Lynch; Kilo Rogers; Ok Watson; Mj Franks Discharge Orders/Prescriptions Prescriptions: New lisinopril 20 mg Tablet 20 mg PO DAILY Qty: 0 0RF pantoprazole [Protonix] 40 mg tablet,delayed release (DR/EC) 40 mg PO BID Qty: 60 1RF Eliquis 2.5 mg tablet 2.5 mg PO BID 30 Days Qty: 60 2RF Rx Instructions: For paroxysmal A-fib. Low-dose given because of high risk of bleeding. fluticasone propion-salmeterol [Advair Diskus] 250-50 mcg/dose blister with device 1 inh inhalation BID 30 Days Qty: 60 0RF prednisone 20 mg tablet 20 mg PO DAILY 5 Days Qty: 5 0RF Rx Instructions: 20 mg daily for 5 days. Continued metoprolol tartrate [Lopressor] 50 mg tablet 50 mg PO BID hydrochlorothiazide 12.5 mg tablet 12.5 mg PO DAILY cholecalciferol (vitamin D3) [Vitamin D3] 25 mcg (1,000 unit) capsule 25 mcg PO DAILY Discontinued lisinopril 40 mg tablet 40 mg PO DAILY aspirin 81 mg capsule 81 mg PO DAILY Referrals / Follow Up: [facility],[place] [Primary Care Provider] - Within 1 Week Andrey Peterson DO [Med Staff - Active Staff] - Within 2 Weeks (For COPD exacerbation.) Gregorio Galarza MD [Med Staff - Active Staff] - Within 1 Month (For paroxysmal A-fib.) Jayesh Gómez DO [Med Staff - Active Staff] - Within 1 Month Disposition Disposition (needs filled in before D/C Order can be placed): Home, Self Care
[2023-06-19] MEDS: Pantoprazole Sodium 40 MG in 0.9% Normal Saline (100mL MB+) 100 ML 330 MG IV (11:17)
--- NOTE | 2023-06-19 12:07 | PCM.DC.SUM ---
Providers Date of Admission: 06/12/23 Primary Care Physician: [place] [facility] Consultations 06/13/23 03:53 Consult: Technical Maintenance Technician / Pulmonary Medicine Routine Consulting Provider: Intensivists/Pulmonary Med Reason for Consult: vent management EMERGENT Consult: No Notified: Yes Date Notified: 06/13/23 Time Notified: 03:53 Method of Notification: Text 06/15/23 12:58 Consult: Gastroenterology Routine Consulting Provider: [facility] Reason for Consult: iron deficiency anemia EMERGENT Consult: No Notified: Yes Date Notified: 06/15/23 Time Notified: 12:59 Method of Notification: Text Reason For Visit: AE COPD WITH CO2 NARCOSIS REQ INTUBATION Diagnosis Discharge Diagnosis (1) Acute exacerbation of COPD with asthma: Status: Chronic Code(s): J44.1 - Chronic obstructive pulmonary disease with (acute) exacerbation; J45.901 - Unspecified asthma with (acute) exacerbation Plan This is 73-year-old gentleman was admitted with unresponsiveness, short of breath, has been coughing up for last few days. In the ED he was found to be in acute exacerbation of COPD and metabolic encephalopathy due to pseudonarcotics and was intubated and put on ventilator. 1. Acute on chronic hypercapnic respiratory failure secondary to COPD exacerbation-patient is being admitted in PCU. He was extubated. Patient is currently on 2 L, he may need oxygen set up at his home at the time of discharge, patient does have [place] insurance. Infectious workup including blood cultures x 2, urine culture, respiratory panel, SARS-CoV-2, influenza and RSV PCR are negative. PT and OT is ordered. Depending upon, authorization from [place], patient is open to go to rehab. 06/19: Patient respiratory status has much improved. Currently patient on 1 L of oxygen pulse ox 96%. Patient given prescription of prednisone 20 mg daily because of high risk of bleeding as mentioned above and Advair inhaler. DuoNeb to continue as needed. Follow-up in pulmonary clinic in about 1 month. #2 anemia-etiology unclear, most likely-iron deficiency-patient H&H is low 27.7. Platelet count 139,000. Patient had IV iron. EGD and colonoscopy planned for today. Discussed with Dr. Gómez. 06/19:Patient has anemia 8.3/28.2%. Prescription for ferrous sulfate and vitamin C given. Patient had EGD and colonoscopy by Dr. Gómez on 06/18/2023 EGD. Impression: - Normal esophagus. - Non-bleeding gastric ulcers with no stigmata of bleeding. Biopsied. - Oozing duodenal ulcers with pigmented material. Injected. Treated with a heater probe. Recommendation: - Pantoprazole 40 mg twice daily x 12 weeks then repeat endoscopy -Carafate liquid 1 g 3 times a day x 8 weeks - Await pathology results. - Repeat upper endoscopy in 3 months for surveillance. Colonoscopy Impression: - Diverticulosis in the recto-sigmoid colon and in the sigmoid colon. - Two 1 to 2 mm polyps in the sigmoid colon, removed with a cold snare. Resected and retrieved. - The examination was otherwise normal on direct and retroflexion views. Recommendation: - Return patient to ICU for ongoing care. - Resume previous diet. - Continue present medications. - Await pathology results. - Repeat colonoscopy is not recommended due to current age (75 years or older). Patient given prescription for pantoprazole and Carafate and advised to follow-up in GI clinic. #3 essential hypertension-patient's blood pressure is being monitored, and controlled 116/62. Patient is now taking Zestril, hydrochlorothiazide, and Lopressor #4 COPD exacerbation-patient is on aerosol treatments and IV Solu-Medrol, Incentive spirometry and Pep As mentioned above 5. Patient also has paroxysmal A-fib and high risk of thromboembolism and stroke: Therefore, prescription given for low dose Eliquis 2.5 mg twice daily as patient also had discussed bleeding. Follow-up in cardiology clinic with Dr. Gregorio Galarza. 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 Medications at Discharge Home Medications cholecalciferol (vitamin D3) 25 mcg (1,000 unit) capsule (Vitamin D3) 25 mcg PO DAILY 06/12/23 hydrochlorothiazide 12.5 mg tablet 12.5 mg PO DAILY 06/12/23 metoprolol tartrate 50 mg tablet (Lopressor) 50 mg PO BID 06/12/23 apixaban 2.5 mg tablet (Eliquis) 2.5 mg PO BID 1 month #60 tabs 06/19/23 ascorbate calcium (vitamin C) 500 mg tablet 500 mg PO BID 1 month #60 tabs 06/19/23 ferrous sulfate 325 mg (65 mg iron) tablet (FeroSul) 325 mg PO DAILY #30 tabs 06/19/23 fluticasone 250 mcg-salmeterol 50 mcg/dose blistr powdr for inhalation (Advair Diskus) 1 inh inhalation BID 1 month #60 ea 06/19/23 lisinopril 20 mg tablet 20 mg PO DAILY #0 tabs 06/19/23 pantoprazole 40 mg tablet,delayed release (Protonix) 40 mg PO BID 12 weeks #168 tabs 06/19/23 prednisone 20 mg tablet 20 mg PO DAILY 5 days #5 tabs 06/19/23 sucralfate 1 gram tablet (Carafate) 1 g PO TID 4 weeks #84 tabs 06/19/23 Physical Exam Narrative Seen and examined. D Patient does not have acute complaint but mild short of breath on exertion. Generalized weakness. Physical exam General: Alert, Oriented x3, Cooperative, BMI 29.4 kg/m?. HEENT: Atraumatic, PERRLA, EOMI, Normocephalic Oral: No Gingival or Mucosal Lesions/ Ulcerations Neck: Supple, No JVD, Negative Carotid Bruits Chest wall/Lungs: Air entry diminished in bilateral lung bases. No crepitation/rhonchi Cardiovascular: Regular rate, Regular Rhythm, Normal S1, Normal S2, No M/G/R Abdomen: Bowel Sounds Present, Soft, Non Tender, Non-Distended : No dysuria. No renal angle tenderness. No suprapubic tenderness. Extremities: Leg edema has improved, Capillary Refill Less than 3 Seconds Skin: No rashes, No breakdown Musculoskeletal: No Tenderness to Palpation of Joints or Extremities Neurological: Cranial nerves II-XII grossly intact, DTR 2+/4. No acute focal neurological deficit. Psych/Mental Status: Flat affect. Weight / BMI Weight Weight: 204 lb 9.423 oz Body Mass Index (BMI) 29.3 ABG / Lab / Microbiology Data 06/19/23 06:30 06/19/23 06:30 Laboratory: Laboratory Results - last 24 hr 06/19/23 06:30: WBC 7.8, RBC 3.47 L, Hgb 8.3 L, Hct 28.2 L, MCV 81.3, MCH 23.9 L, MCHC 29.4 L, RDW Std Deviation 54.3 H, RDW Coeff of Linda 19.6 H, Plt Count 178, MPV 9.9, Immature Gran % (Auto) 0.600, Neut % (Auto) 87.4 H, Lymph % (Auto) 5.8 L, [place] % (Auto) 6.2, Eos % (Auto) 0.0, Baso % (Auto) 0.0, Absolute Neuts (auto) 6.8, Absolute Lymphs (auto) 0.45 L, Nucleated RBC % 0, Sodium 130 L, Potassium 4.3, Chloride 93 L, Carbon Dioxide 33.0 H, Anion Gap 4 L, BUN 15, Creatinine 0.73, Estim Creat Clear Calc 91.32, Est GFR (MDRD) Af Amer 134, Est GFR (MDRD) Non-Af 111, BUN/Creatinine Ratio 20.5 H, Glucose 139 H, Calcium 8.6 Microbiology: Microbiology 06/13/23 06:30 Blood Culture (Wb) - Right Forearm Blood Culture - Final No growth in 5 days. 06/13/23 06:25 Blood Culture (Wb) - Left Forearm Blood Culture - Final No growth in 5 days. 06/13/23 06:30 Urine Catheter - Portillo Urine Culture - Final Culture exhibits no growth. 06/13/23 07:10 Mucosa - Nasopharyngeal Respiratory Panel (PCR) - Final 06/12/23 18:37 Mucosa - Nasopharyngeal SARS-CoV-2, Influenza & RSV (PCR) - Final Meaningful Use Info Meaningful Use Diagnoses (Choose all that apply): None applicable Discharge Plan Admission Admit Date/Time: 06/12/23 23:06 Primary Reason for Your Visit: Acute hypoxic respiratory failure, COPD exacerbation. Severe anemia Attending Provider: Rosas Trujillo Primary Care Provider: [facility],[place] Consulting Providers: Mehul Brooke; Donavan Villanueva; Pablito Rothman; Andrey Peterson; Rafy Cuevas; Gely Louis; Andrew Hunt; Silva Mcqueen; Jessie Aguilar; Rishabh Middleton; Arpit Lynch; Kilo Rogers; Ok Watson; Mj Franks Discharge Orders/Prescriptions Prescriptions: New lisinopril 20 mg Tablet 20 mg PO DAILY Qty: 0 0RF Eliquis 2.5 mg tablet 2.5 mg PO BID 30 Days Qty: 60 2RF Rx Instructions: For paroxysmal A-fib. Low-dose given because of high risk of bleeding. fluticasone propion-salmeterol [Advair Diskus] 250-50 mcg/dose blister with device 1 inh inhalation BID 30 Days Qty: 60 0RF prednisone 20 mg tablet 20 mg PO DAILY 5 Days Qty: 5 0RF Rx Instructions: 20 mg daily for 5 days. pantoprazole [Protonix] 40 mg tablet,delayed release (DR/EC) 40 mg PO BID 84 Days Qty: 168 0RF sucralfate [Carafate] 1 gram tablet 1 g PO TID 28 Days Qty: 84 0RF ferrous sulfate [FeroSul] 325 mg (65 mg iron) tablet 325 mg PO DAILY Qty: 30 3RF ascorbate calcium (vitamin C) 500 mg tablet 500 mg PO BID 30 Days Qty: 60 3RF Continued metoprolol tartrate [Lopressor] 50 mg tablet 50 mg PO BID hydrochlorothiazide 12.5 mg tablet 12.5 mg PO DAILY cholecalciferol (vitamin D3) [Vitamin D3] 25 mcg (1,000 unit) capsule 25 mcg PO DAILY Discontinued lisinopril 40 mg tablet 40 mg PO DAILY aspirin 81 mg capsule 81 mg PO DAILY Referrals / Follow Up: Andrey Peterson DO [Med Staff - Active Staff] - Within 2 Weeks (For COPD exacerbation.) Gregorio Galarza MD [Med Staff - Active Staff] - Within 1 Month (For paroxysmal A-fib.) Jayesh Gómez DO [Med Staff - Active Staff] - Within 1 Month [facility] [Primary [facility] - Within 1 Week Disposition Disposition (needs filled in before D/C Order can be placed): Home, Self Care Charges/Coding Visit Charges Inpatient E&M: 99544 Disch Hosp >30min
--- NOTE | 2023-06-19 12:09 | PHA.DC.MR.R ---
Pharmacy [place] Med Reconciliation Pharmacy Service has performed discharge medication reconciliation for this patient. The patient's discharge medication list was reviewed for discrepancies and discrepancies were resolved. Medications at Discharge Home Medications cholecalciferol (vitamin D3) 25 mcg (1,000 unit) capsule (Vitamin D3) 25 mcg PO DAILY 06/12/23 hydrochlorothiazide 12.5 mg tablet 12.5 mg PO DAILY 06/12/23 metoprolol tartrate 50 mg tablet (Lopressor) 50 mg PO BID 06/12/23 apixaban 2.5 mg tablet (Eliquis) 2.5 mg PO BID 1 month #60 tabs 06/19/23 fluticasone 250 mcg-salmeterol 50 mcg/dose blistr powdr for inhalation (Advair Diskus) 1 inh inhalation BID 1 month #60 ea 06/19/23 lisinopril 20 mg tablet 20 mg PO DAILY #0 tabs 06/19/23 pantoprazole 40 mg tablet,delayed release (Protonix) 40 mg PO BID #60 tabs 06/19/23 prednisone 20 mg tablet 20 mg PO DAILY 5 days #5 tabs 06/19/23
== END 2023-06-19 14:39 | disposition skilled nursing facility (03) | DRG 208 ==
LOC: ED 22:06 → ICU 22:47 → PCU 06-18 18:54
PROVIDERS: Anesthesiology; Internal Medicine; Internal Medicine Critical Care Medicine; Internal Medicine Gastroenterology; Admitting Provider Internal Medicine; Emergency Provider Emergency Medicine; Visit Provider Internal Medicine
PROC: 0DJD8ZZ Inspection of Lower Intestinal Tract, Via Natural or Artificial Opening Endoscopic (ICD-10-PCS; CPT 45378; principal; 2023-06-16 12:30)
DX: J96.22 Acute and chronic respiratory failure with hypercapnia (principal); G93.41 Metabolic encephalopathy; K26.4 Chronic or unspecified duodenal ulcer with hemorrhage; N17.9 Acute kidney failure, unspecified; J44.1 Chronic obstructive pulmonary disease with (acute) exacerbation; E87.1 Hypo-osmolality and hyponatremia; I11.0 Hypertensive heart disease with heart failure; I50.9 Heart failure, unspecified; J47.9 Bronchiectasis, uncomplicated; J96.21 Acute and chronic respiratory failure with hypoxia; I48.0 Paroxysmal atrial fibrillation; D50.9 Iron deficiency anemia, unspecified; I95.81 Postprocedural hypotension; M19.90 Unspecified osteoarthritis, unspecified site; K57.30 Diverticulosis of large intestine without perforation or abscess without bleeding; K63.5 Polyp of colon; F17.210 Nicotine dependence, cigarettes, uncomplicated; E66.9 Obesity, unspecified; K25.9 Gastric ulcer, unspecified as acute or chronic, without hemorrhage or perforation; Z11.52 Encounter for screening for COVID-19; Z79.82 Long term (current) use of aspirin; Z79.01 Long term (current) use of anticoagulants; Z68.30 Body mass index [BMI] 30.0-30.9, adult
CPT/HCPCS: 31500; 31720; 36415; 36600; 51702; 70450; 70496; 70498; 71045; 71250; 74176; 80048; 80053; 81001; 82550; 82728; 82803; 83540; 83550; 83735; 83880; 83930; 83935; 84100; 84145; 84443; 84478; 84484; 85025; 85610; 85730; 86850; 86900; 86901; 86920; 86922; 87040; 87086; 87631; 87633; 88305; 88342; 93005; 93306; 94002; 94003; 94640; 94660; 94668; 97110; 97162; 97166; 97530; 97535; 97802; 97803; 99252; 99285; J7030; J7040; J7050; J7120; P9016; Q9957; Q9967; A4216; C8929; G0463; J0330; J2405; J2916

== ENCOUNTER 2023-06-19 15:00 | Inpatient (IN) | payer MEDICARE, SELFPAY ==
[2023-06-19 15:09] VITALS: BP 157/78; PULSE 83; RESP 17; RESP 18; TEMP 36.7; O2SAT 92; O2SAT 96; BMI 28.6
[2023-06-19 15:18] VITALS: BMI 28.6
[2023-06-19] MEDS: Sucralfate 1 GM Tablet PO (16:36)
--- NOTE | 2023-06-19 19:38 | HP.PCM_ITS ---
HPI - General General Date of Admission: 06/19/23 Date of Service: 06/19/23 Chief Complaint: Here for rehabilitation. HPI Narrative 06/12/2023 MARK MUÑIZ, is a 73 Male who presents to [facility] ED with stroke alert. Fall, hit head, refused ER. Not responsive, right sided weakness. Fell, hit head, no LOC, leg pain. Family could not wake him. Coughing, looks guo. Intubated for acute respiratory failure with hypoxia. Creatinine 1.84, sodium 127, BNP 483. Admit for COPD, CHF. 06/12/2023 Admit to [facility] ICU. Zosyn IV for pneumonia. Solu-medrol IV, Aerosols for COPD exacerbation. Normal Saline IV, stop HCTZ for hyponatremia. Type and Screen for hemoglobin 7. On Vent. 06/13/2023 Transfused 2 units PRBC. 06/13/2023 Sedated, on vent. Iron studies for anemia. 06/14/2023 Extubated, comfortable, on oxygen per nasal cannula. Oxygen 3 liters per NC. Ferritin low, TIBC high. 06/15/2023 Echo EF 65%. Negative diastolic dysfunction. 06/15/2023 Colonoscopy recommended. Oxygen 2 liters per NC. IV iron for iron deficiency anemia. Solu-medrol iv, aerosols for COPD exacerbation. 06/16/2023 Dr. Gómez colonoscopy, poor prep, diverticulosis. 06/16/2023 Room Air. 06/17/2023 Hemoglobin 7.6. 06/18/2023 Mild dyspnea on exertion, weakness. Oxygen 2 liters per NC. Blood cultures x 2 negative, urine culture negative, Respiratory panel negative, covid-19 negative, flu negative, rsv negative. 06/18/2023 Dr. Gómez EGD non-bleeding gastric ulcers biopsied, oozing duodenal ulcers, injected, heater probe. Pantoprazole 40mg bid x 12 weeks, then repeat EGD. 06/18/2023 Dr. Gómez repeat colonoscopy, diverticulosis, 2 small sigmoid colon polyps removed. 06/19/2023 Admit to TCU with debility, here for rehabilitation, strengthening, prior to discharge home with . [facility] Medical History (Updated 06/19/23 @ 19:[address] Yoshi Latif MD) Acute anemia Acute kidney injury Alcohol abuse COPD exacerbation Debility Duodenal ulcer Hyperlipidemia, unspecified Hypertension Tobacco abuse Upper gastrointestinal bleeding Home Medications cholecalciferol (vitamin D3) 25 mcg (1,000 unit) capsule (Vitamin D3) 25 mcg PO DAILY supplement 06/12/23 [History Last Taken 06/19/23] hydrochlorothiazide 12.5 mg tablet 12.5 mg PO DAILY fluid retention 06/12/23 [History Last Taken 06/19/23] metoprolol tartrate 50 mg tablet (Lopressor) 50 mg PO BID BP 06/12/23 [History Last Taken 06/19/23] apixaban 2.5 mg tablet (Eliquis) 2.5 mg PO BID Blood thinner 1 month #60 tabs 06/19/23 [Rx Last Taken Unknown] ascorbate calcium (vitamin C) 500 mg tablet 500 mg PO BID supplement 1 month #60 tabs 06/19/23 [Rx Last Taken Unknown] ferrous sulfate 325 mg (65 mg iron) tablet (FeroSul) 325 mg PO DAILY supplement #30 tabs 06/19/23 [Rx Last Taken Unknown] fluticasone 250 mcg-salmeterol 50 mcg/dose blistr powdr for inhalation (Advair Diskus) 1 inh inhalation BID Breathing 1 month #60 ea 06/19/23 [Rx Last Taken Unknown] lisinopril 20 mg tablet 20 mg PO DAILY BP #0 tabs 06/19/23 [Rx Last Taken 06/19/23] pantoprazole 40 mg tablet,delayed release (Protonix) 40 mg PO BID GI 12 weeks #168 tabs 06/19/23 [Rx Last Taken Unknown] prednisone 20 mg tablet 20 mg PO DAILY steroid 5 days #5 tabs 06/19/23 [Rx Last Taken Unknown] sucralfate 1 gram tablet (Carafate) 1 g PO TID stomach 4 weeks #84 tabs 06/19/23 [Rx Last Taken Unknown] Allergy/AdvReac Type Severity Reaction Status Date / Time No Known Allergies Allergy Verified 06/12/23 17:47 Social History (Updated 06/19/23 @ 19:[address] Yoshi Latif MD) household members: spouse Smoking Status: Current every day smoker tobacco type: cigarettes alcohol intake: current alcohol intake frequency: 0-2 drinks per day Alcohol type: beer substance use type: does not use ROS Constitutional Constitutional: Reports weakness; Denies chills, fever(s) or weight gain ENT HEENT: Denies headache(s), nasal congestion or nasal discharge Cardiovascular Cardiovascular: Denies chest pain or palpitations Respiratory/Chest Respiratory/Chest: Denies cough, excessive phlegm production or shortness of breath with exertion Gastrointestinal Gastrointestinal: Denies abdominal pain, nausea or vomiting Genitourinary Genitourinary: Denies dysuria Musculoskeletal Musculoskeletal: Denies joint pain or joint swelling Integumentary Integumentary: Denies rash or wounds Neurologic Neurologic: Denies focal weakness, numbness or tingling Psychiatric Psychiatric: Denies anxiety, auditory hallucinations, depression, homicidal ideation or suicidal ideation Vital Signs Vital Signs Vital Signs: 06/19/23 15:09 06/19/23 15:09 Temperature 98.0 F Temperature Source Temporal Pulse Rate 83 Pulse Rhythm Irregular Pulse Strength Normal (2+) Respiratory Rate 17 18 Respiratory Effort Normal Non-Labored Respiratory Depth Normal Respiratory Pattern Normal Blood Pressure 157/78 H Blood Pressure Mean 104 Blood Pressure Source Monitor Blood Pressure Position Sitting Blood Pressure Location Left Arm Pulse Ox 96 92 Oxygen Delivery Method Nasal Cannula Nasal Cannula Oxygen Flow Rate (L/min) 2 2 Weight Weight: 90.537 kg Body Mass Index (BMI) 28.6 Physical Exam Const alert General Appearance: cooperative HEENT normocephalic Eyes PERRL and EOMs intact bilaterally Neck supple, no JVD and no carotid bruits Resp normal respiratory effort, normal air movement and clear to auscultation bilaterally Auscultation: rhonchi lower bilaterally Cardio regular rate and regular rhythm GI normal to inspection, nondistended, normoactive bowel sounds, non-tender and non-distended Extremity normal capillary refill General Extremity: Negative for edema Skin no rashes or lesions noted General Skin Exam: no breakdown Psych affect normal Appearance: appropriate Assessment & Plan Assessment/Plan (1) Debility: (2) Acute hypoxic respiratory failure: (3) COPD exacerbation: (4) Acute kidney injury: (5) Hyponatremia: (6) Acute anemia: (7) Upper gastrointestinal bleeding: (8) Duodenal ulcer: (9) Hypertension: (10) Hyperlipidemia, unspecified: (11) Tobacco abuse: (12) Alcohol abuse: (13) Atrial fibrillation: PLAN: Plan 73 year old male with below past medical history hospitalized for acute respiratory failure with hypoxia requiring intubation 2/2 copd exacerbation, complicated by anemia 2/2 duodenal ulcer bleeding, hyponatremia, acute kidney injury, admitted to TCU with debility, here for rehabilitation, strengthening, prior to discharge home with . * Debility - PT/OT. * Dysphagia - ST. * Pain - Tylenol 1000mg q6 prn pain (1-10). * Bowel - senna/colace 1 tablet bid, Magnesium citrate 300ml daily prn, Dulcolax 10mg pr daily prn. * Adult immunization - Administer pneumonia vaccine, covid vaccine, flu vaccine as appropriate. * DVT prophylaxis - on Eliquis. * Atrial fibrillation - Metoprolol 50mg bid, Eliquis 2.5mg bid. * Iron deficiency anemia - Ferrex 150mg daily, Vitamin C 500mg daily. * Vitamin D deficiency - D3 25mcg daily. * COPD - Advair 232-14 1 puff bid, Prednisone 20mg daily thru 06/24/2023. * Hypertension - Metoprolol 50mg bid, Lisinopril 20mg daily, HCTZ 12.5mg daily. * Duodenal ulcer - Pantoprazole 40mg bid, Sucralfate 1gm bid. * Skin irritation - Eucerin topical daily.
[2023-06-19 21:47] VITALS: BP 147/66; PULSE 75
[2023-06-19] MEDS: Fluticasone/Salmeterol 232-14 Inhaler 1 PUFF INHALATION (21:47)
[2023-06-19] MEDS: APIXABAN 2.5 MG TABLET (WCH) PO (21:47)
[2023-06-19] MEDS: Senna/Docusate Sodium 1 Tablet PO (21:47)
[2023-06-19] MEDS: Metoprolol Tartrate 50 MG Tablet PO (21:47)
[2023-06-19] MEDS: Pantoprazole Sodium 40 MG Tablet PO (21:47)
[2023-06-19] MEDS: 0.9% Saline Lock 10 ML Syringe IV (21:50)
[2023-06-20 05:44] LABS: Absolute Lymphocyte Count 1.12 X10^3/uL (0.83-4.51); Absolute Neutrophil Count 6.3 X10^3/uL (2.0-7.7); Basophil# 0.01 X10^3/uL; Basophil% 0.1 % (0-1); Eosinophil# 0.02 X10^3/uL; Eosinophils% 0.2 % (0-5); Hematocrit 29.9 % (40-54); Hemoglobin 8.6 g/dL (13.0-16.5); Lymphocyte # 1.12 X10^3/ul (0.83-4.51); Lymphocyte % 13.2 % (19-41); Mean Corp Hgb Conc 28.8 g/dL (32-36); Mean Corpuscular Hgb 24.2 pg (27.0-32.0); Mean Corpuscular Volume 84.2 fL (80-94); Mean Platelet Vol. 9.8 fl (6.2-12.0); Monocyte# 0.94 X10^3/uL; Monocyte% 11.1 % (0-10); NRBC Flagged by Analyzer 0 % (0-5); Neutrophil # 6.33 X10^3/uL (2.7-7.7); Neutrophil % 74.8 % (47-70); POSITIVE MORPHOLOGY YES; Platelet Count 181 K/mm3 (150-450); RBC Distribution Width CV 20.3 % (11.6-14.6); RBC Distribution Width SD 56.3 fl (35.1-43.9); Red Blood Count 3.55 M/mm3 (4.6-6.2); White Blood Count 8.5 K/mm3 (4.4-11.0)
[2023-06-20 05:56] LABS: Differential Indicated SCAN CRITERIA MET
[2023-06-20] MEDS: Sucralfate 1 GM Tablet PO ×3 (06:02→16:19)
[2023-06-20 06:14] LABS: Anion Gap 1 (5-15); BUN 17 mg/dL (7-18); BUN/Creat Ratio 24.7 RATIO (10-20); Calcium,Total 8.5 mg/dL (8.5-10.1); Chloride 94 mmol/L (98-107); Creatinine, Serum 0.69 mg/dL (0.70-1.30); EST Glomerular Filtration Rate 119 mL/min (>60); Est Glom Filt Rate - Afr Amer 144 mL/min (>60); Estimated Creatinine Clearance 90.29 ml/min; Glucose 98 mg/dL (74-106); Potassium 4.2 mmol/L (3.5-5.1); Sodium Level 133 mmol/L (136-145)
[2023-06-20 06:19] LABS: Anisocytosis 2+; Differential Comment SCANNED
[2023-06-20 06:23] VITALS: PULSE 64; RESP 16; O2SAT 98
[2023-06-20 09:15] VITALS: BP 124/66; PULSE 86
[2023-06-20] MEDS: Metoprolol Tartrate 50 MG Tablet PO ×2 (09:15→20:23)
[2023-06-20] MEDS: hydroCHLOROthiazide 12.5mg 12.5 MG PO (09:15)
[2023-06-20] MEDS: Fluticasone/Salmeterol 232-14 Inhaler 1 PUFF INHALATION ×2 (09:15→20:22)
[2023-06-20] MEDS: Ascorbic Acid 500 MG Tablet PO (09:15)
[2023-06-20] MEDS: Cholecalciferol (VIT D3) 25 MCG TABLET (1,000 UNITS) PO (09:15)
[2023-06-20] MEDS: Petrolatum 33% Tube 1 APPLIC TOPICAL (09:16)
[2023-06-20] MEDS: Pantoprazole Sodium 40 MG Tablet PO ×2 (09:16→20:24)
[2023-06-20] MEDS: predniSONE 20 MG Tablet PO (09:16)
[2023-06-20] MEDS: Lisinopril 20 MG Tablet PO (09:16)
[2023-06-20] MEDS: Iron Polysaccharide Complex 150 MG CAPSULE PO (09:16)
[2023-06-20] MEDS: APIXABAN 2.5 MG TABLET (WCH) PO ×2 (09:16→20:23)
[2023-06-20] MEDS: Tuberculin,Purif.prot.deriv. 50 TU/ML Vial 0.100000000000000006 ML ID (10:34)
[2023-06-20] MEDS: Flu Vacc QS2023-24(65YR UP)/PF 240 MCG/0.7 ML Syringe IM (10:41)
--- NOTE | 2023-06-20 12:27 | NURSING ---
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 He has stated he prefers in room activities over group and is her to do his therapy and rest so he can get back home. He would like the newspaper when available and will do the crossword in that. He will also watch tv and visit w/family and friends when not resting or in therapy. staff will remind him of weekly activities and respect his right to say no.
[2023-06-20 14:06] VITALS: BP 137/66; PULSE 71; RESP 16; TEMP 36.2; O2SAT 97
--- NOTE | 2023-06-20 15:06 | PCM.PN.DRR ---
Documented by User: Thais Rodriguez 06/20/23 16:04 TCU RX Drug Regimen Review Subjective/Objective Subjective/Objective: Subjective: TCU Admission. 73 YOM presented to the ER as a stroke alert. Hospitalized for acute respiratory failure with hypoxia requiring intubation 2/2 COPD exacerbation, complicated by anemia 2/2 duodenal ulcer bleeding, hyponatremia, acute kidney injury. Admitted to TCU with debility for strengthening and rehabilitation. Objective: Allergies No Known Allergies Allergy (Verified 06/12/23 17:47) Current Medications Generic Name Dose Route Start Last Admin Trade Name Freq PRN Reason Stop Dose Admin Acetaminophen 1,000 mg 06/19/23 20:03 Acetaminophen 500 Mg Tablet PO Q6H PRN PRN Pain Score 1-10 Apixaban 2.5 mg 06/19/23 22:00 06/20/23 09:16 Apixaban 2.5 Mg Tablet (Wch) PO 2.5 mg BID ELAINE Administration Ascorbic Acid 500 mg 06/20/23 10:00 06/20/23 09:15 Ascorbic Acid 500 Mg Tablet PO 500 mg 1000 ELAINE Administration Bisacodyl 10 mg 06/19/23 15:23 Bisacodyl 10 Mg Suppository RC DAILY PRN CONSTIPATION Cholecalciferol 25 mcg 06/20/23 10:00 06/20/23 09:15 Cholecalciferol (Vit D3) 25 Mcg Tablet (1,000 Units) PO 25 mcg DAILY ELAINE Administration Hydrochlorothiazide 12.5 mg 06/20/23 10:00 06/20/23 09:15 Hydrochlorothiazide 12.5mg PO 12.5 mg DAILY ELAINE Administration Protocol Lisinopril 20 mg 06/20/23 10:00 06/20/23 09:16 Lisinopril 20 Mg Tablet PO 20 mg DAILY ELAINE Administration Protocol Magnesium Citrate 300 ml 06/19/23 20:03 Magnesium Citrate 300 Ml PO DAILY PRN CONSTIPATION Metoprolol Tartrate 50 mg 06/19/23 22:00 06/20/23 09:15 Metoprolol Tartrate 50 Mg Tablet PO 50 mg BID ELAINE Administration Protocol Multi-Ingredient Cream 1 applic 06/20/23 10:00 06/20/23 09:16 Petrolatum 33% Tube TOPICAL 1 applic DAILY ELAINE Administration Protocol Pantoprazole Sodium 40 mg 06/19/23 22:00 06/20/23 09:16 Pantoprazole Sodium 40 Mg Tablet PO 40 mg BID ELAINE Administration Polysaccharide Iron Complex 150 mg 06/20/23 10:00 06/20/23 09:16 Iron Polysaccharide Complex 150 Mg Capsule PO 150 mg DAILY ELAINE Administration Prednisone 20 mg 06/20/23 08:00 06/20/23 09:16 Prednisone 20 Mg Tablet PO 06/24/23 23:00 20 mg DAILYCM ELAINE Administration Fluticasone/Salmeterol 1 puff 06/19/23 22:00 06/20/23 09:15 Fluticasone/Salmeterol 232-14 Inhaler INHALATION 1 puff BID ELAINE Administration Senna/Docusate Sodium 1 tablet 06/19/23 22:00 06/20/23 09:16 Senna/Docusate Sodium 1 Tablet PO Not Given BID ELAINE Sodium Chloride 10 - 40 ml 06/19/23 15:13 06/19/23 21:50 0.9% Saline Lock 10 Ml Syringe IV 20 ml UD PRN Administration SALINE FLUSH Sucralfate 1 gm 06/19/23 16:00 06/20/23 11:53 Sucralfate 1 Gm Tablet PO 1 gm TID@0700,1100,1600 ELAINE Administration Tuberculin PPD 0.1 ml 06/27/23 10:00 Tuberculin,Purif.Prot.Deriv. 50 Tu/Ml Vial ID 06/27/23 10:01 X1 ONE Problem List (Updated 06/19/23 @ 19:[address] Yoshi Latif MD) Atrial fibrillation (Acute) Alcohol abuse (Acute) Tobacco abuse (Acute) Hyperlipidemia, unspecified (Acute) Hypertension (Chronic) Duodenal ulcer (Acute) Upper gastrointestinal bleeding (Acute) Acute anemia (Acute) Acute kidney injury (Acute) COPD exacerbation (Chronic) Debility (Acute) Hyponatremia (Acute) Acute hypoxic respiratory failure (Acute) Vital Signs Temp Pulse Resp BP Pulse Ox O2 Del Method O2 Flow Rate 97.1 F L 71 16 137/66 H 97 Nasal Cannula 2 06/20/23 14:06 06/20/23 14:06 06/20/23 14:06 06/20/23 14:06 06/20/23 14:06 06/20/23 14:06 06/20/23 14:06 Oxygen Flow Rate (L/min) 2 Oxygen Delivery Method Nasal Cannula Weight: 90.537 kg Body Mass Index (BMI) 28.6 Sodium 133 mmol/L (136-145) L 06/20/23 05:28 Potassium 4.2 mmol/L (3.5-5.1) 06/20/23 05:28 Chloride 94 mmol/L (98-107) L 06/20/23 05:28 Carbon Dioxide 38.0 mmol/L (21.0-32.0) H 06/20/23 05:28 Anion Gap 1 (5-15) L 06/20/23 05:28 BUN 17 mg/dL (7-18) 06/20/23 05:28 Creatinine 0.69 mg/dL (0.70-1.30) L 06/20/23 05:28 Est GFR (MDRD) Af Amer 144 mL/min (>60) 06/20/23 05:28 Est GFR (MDRD) Non-Af 119 mL/min (>60) 06/20/23 05:28 BUN/Creatinine Ratio 24.7 RATIO (10-20) H 06/20/23 05:28 Glucose 98 mg/dL (74-106) 06/20/23 05:28 Assessment/Plan: 1. Pain: acetaminophen 1000mg PO Q6H PRN pain 1-10. Resident has not required any doses. Please continue to monitor for increased pain and PRN usage. 2. Bowel: senna/docusate 1T PO BID, bisacodyl 10mg RC daily PRN constipation and magnesium citrate 300mL PO daily PRN constipation. Resident has not used any PRN doses. Last documented bowel movement was 06/19. Please continue to monitor for constipation and PRN usage. 3. Atrial fibrillation/hypertension: lisinopril 20mg PO daily, hydrochlorothiazide 12.5mg PO daily, metoprolol tartrate 50mg PO BID and apixaban 2.5mg PO BID. Resident technically meets criteria for higher dosing of apixaban because age is <80, weight >60kg and SCr is <1.5mg/dL. In RX comment, hospitalist noted that the lower dose was started due to a high risk of bleeding. Please continue to monitor for S/S of stroke/bleeding, hemoglobin (last 8.6g/dL), HR (last 71), BP (last 137/66), sodium (last 133mmol/L), potassium (last 4.2mmol/L), cough and renal function. 4. COPD: fluticasone/salmeterol 232/14mcg 1puff BID and prednisone 20mg PO DAILYCM thru 06/24/23. Please continue to monitor HR, S/S of thrush, glucose (last 98mg/dL), agitation and increased hunger. Please rinse mouth with water and rinse following Advair administration to prevent thrush. 5. Iron deficiency anemia: Ferrex 150mg PO daily and ascorbic acid 500mg PO daily. Please continue to monitor for constipation, hemoglobin (last 8.6g/dL), dark stools and iron studies (last 06/15/23). 6. Duodenal ulcer: pantoprazole 40mg PO BID and sucralfate 1gm PO TID. Please continue to monitor for bleeding, diarrhea (BEERs medication), magnesium (last 2mg/dL 06/13/23) and constipation. 7. Vitamin D deficiency: cholecalciferol 25mcg PO daily. Please consider ordering a vitamin D level as there is no level in the chart. Thanks. 8. Skin Irritation: Eucerin topical daily. Please continue to monitor. Assessment/Plan for indications treated with psychotropic medications: None Medical chart and medication regimen reviewed. The following medication irregularities or issues were identified: 1. Cholecalciferol 25mcg PO daily. Please consider ordering a vitamin D level as there is no level in the chart. Thanks. Date Date of Note:: 06/20/23 Documented by User: Dr. Yoshi Latif MD 06/20/23 16:27 TCU RX Drug Regimen Review Provider Comments Provider responsibility Provider Comments to Recommendations by Pharmacy: Agree
[2023-06-20] MEDS: 0.9% Saline Lock 10 ML Syringe IV ×2 (16:19→20:25)
[2023-06-20 20:23] VITALS: BP 145/74; PULSE 93
[2023-06-20 20:33] VITALS: BP 145/74; PULSE 93
[2023-06-21 05:58] LABS: Hematocrit 27.6 % (40-54); Hemoglobin 8.2 g/dL (13.0-16.5)
[2023-06-21] MEDS: Sucralfate 1 GM Tablet PO ×3 (06:02→16:30)
[2023-06-21 08:12] LABS: Vitamin D,25 Hydroxy 41.2 ng/mL
[2023-06-21 08:47] VITALS: BP 121/63; PULSE 86
[2023-06-21] MEDS: Pantoprazole Sodium 40 MG Tablet PO ×2 (08:47→21:23)
[2023-06-21] MEDS: hydroCHLOROthiazide 12.5mg 12.5 MG PO (08:47)
[2023-06-21] MEDS: Lisinopril 20 MG Tablet PO (08:47)
[2023-06-21] MEDS: Metoprolol Tartrate 50 MG Tablet PO ×2 (08:47→21:22)
[2023-06-21] MEDS: Cholecalciferol (VIT D3) 25 MCG TABLET (1,000 UNITS) PO (08:47)
[2023-06-21] MEDS: Iron Polysaccharide Complex 150 MG CAPSULE PO (08:48)
[2023-06-21] MEDS: Fluticasone/Salmeterol 232-14 Inhaler 1 PUFF INHALATION ×2 (08:48→21:21)
[2023-06-21] MEDS: Petrolatum 33% Tube 1 APPLIC TOPICAL (08:48)
[2023-06-21] MEDS: APIXABAN 2.5 MG TABLET (WCH) PO ×2 (08:48→21:22)
[2023-06-21] MEDS: predniSONE 20 MG Tablet PO (08:48)
[2023-06-21] MEDS: Ascorbic Acid 500 MG Tablet PO (08:49)
[2023-06-21] MEDS: 0.9% Saline Lock 10 ML Syringe IV (11:16)
[2023-06-21 12:12] VITALS: BP 112/60; PULSE 68; RESP 16; TEMP 36.3; O2SAT 94
[2023-06-21 21:22] VITALS: BP 134/67; PULSE 94
[2023-06-21 21:25] VITALS: BP 134/67; PULSE 94
[2023-06-22] MEDS: Sucralfate 1 GM Tablet PO ×3 (06:15→16:45)
[2023-06-22 07:48] LABS: Hematocrit 26.8 % (40-54); Hemoglobin 7.7 g/dL (13.0-16.5)
[2023-06-22] MEDS: Pantoprazole Sodium 40 MG Tablet PO ×2 (09:46→22:33)
[2023-06-22] MEDS: predniSONE 20 MG Tablet PO (09:46)
[2023-06-22] MEDS: Fluticasone/Salmeterol 232-14 Inhaler 1 PUFF INHALATION ×2 (09:46→22:34)
[2023-06-22] MEDS: hydroCHLOROthiazide 12.5mg 12.5 MG PO (09:46)
[2023-06-22] MEDS: Petrolatum 33% Tube 1 APPLIC TOPICAL (09:46)
[2023-06-22] MEDS: Iron Polysaccharide Complex 150 MG CAPSULE PO (09:46)
[2023-06-22] MEDS: Ascorbic Acid 500 MG Tablet PO (09:47)
[2023-06-22] MEDS: Cholecalciferol (VIT D3) 25 MCG TABLET (1,000 UNITS) PO ×2 (09:47→09:48)
[2023-06-22] MEDS: Lisinopril 20 MG Tablet PO (09:48)
[2023-06-22] MEDS: APIXABAN 2.5 MG TABLET (WCH) PO ×2 (09:50→22:33)
[2023-06-22 09:57] VITALS: BP 98/57
[2023-06-22 11:23] LABS: Bacteria 0 SEEN /hpf (None Seen); Mucous, Urine 0 SEEN /hpf (<or=2+); Red Blood Cells-Urine 0 SEEN /hpf (0-5); Squamous Epithelial Cells - UA 0 SEEN /hpf (0-5)
[2023-06-22 11:29] LABS: Color, Urine Yellow (Yellow); Glucose, Dipstick Normal (Normal); Ketone-Dipstick Negative (Negative); Leukocyte Esterase-Dipstick 25 /ul (Negative); Nitrite-Dipstick Negative (Negative); Occult Blood-Urine 10 /ul (Negative); Protein-Dipstick 15 mg/dl (Negative); Urine Bilirubin Dipstick Negative (Negative); Urine Clarity Clear (Clear); Urine Urobilinogen Normal (Normal)
[2023-06-22 11:41] LABS: White Blood Cells 0-5 SEEN /hpf (0-5)
[2023-06-22 16:00] VITALS: BP 123/70; PULSE 86; RESP 14; TEMP 36.8; O2SAT 95
--- NOTE | 2023-06-22 17:00 | CASEMGMT ---
Social Work Met with patient to complete initial assessment. Introduced self and role. at bedside and pt granted permission for to remain. Verified contacts. Patient confirmed code status as full code. SW requested provide copies of advanced directives. Educated to Medicare benefit. Pt does not have a secondary insurance and would pay OOP on day 21 and beyond, which is 07/08 at $204/day, if pt is not discharged by that time. Pt expressed understanding and goal is to DC prior. Pt will DC home with at [facility], goal is without O2. Pt has a flight of steps he needs to complete for safety at home. SW will continue to follow for DC planning. JIM MoralezW
[2023-06-22 17:50] VITALS: O2SAT 95
[2023-06-22 22:33] VITALS: BP 147/86; PULSE 92
[2023-06-22] MEDS: Metoprolol Tartrate 50 MG Tablet PO (22:33)
[2023-06-23] MEDS: Sucralfate 1 GM Tablet PO ×3 (06:05→15:46)
[2023-06-23 09:40] VITALS: BP 112/59; PULSE 89; RESP 16; TEMP 36.8; O2SAT 98
[2023-06-23] MEDS: Petrolatum 33% Tube 1 APPLIC TOPICAL (09:43)
[2023-06-23] MEDS: Iron Polysaccharide Complex 150 MG CAPSULE PO (09:43)
[2023-06-23] MEDS: APIXABAN 2.5 MG TABLET (WCH) PO ×2 (09:43→21:34)
[2023-06-23] MEDS: predniSONE 20 MG Tablet PO (09:43)
[2023-06-23 09:44] VITALS: PULSE 89
[2023-06-23] MEDS: Fluticasone/Salmeterol 232-14 Inhaler 1 PUFF INHALATION ×2 (09:44→21:34)
[2023-06-23] MEDS: hydroCHLOROthiazide 12.5mg 12.5 MG PO (09:44)
[2023-06-23] MEDS: Pantoprazole Sodium 40 MG Tablet PO ×2 (09:44→21:33)
[2023-06-23] MEDS: Metoprolol Tartrate 50 MG Tablet PO ×2 (09:44→21:33)
[2023-06-23] MEDS: Ascorbic Acid 500 MG Tablet PO (09:45)
[2023-06-23] MEDS: Lisinopril 20 MG Tablet PO (09:45)
[2023-06-23 21:30] VITALS: PULSE 80; RESP 16; O2SAT 98
[2023-06-23 21:33] VITALS: BP 128/67; PULSE 80
[2023-06-24 05:55] VITALS: PULSE 70; RESP 18; O2SAT 97
[2023-06-24] MEDS: Sucralfate 1 GM Tablet PO ×3 (05:57→16:36)
[2023-06-24 07:10] VITALS: O2SAT 97
[2023-06-24 09:23] VITALS: BP 96/56; PULSE 88; RESP 16; TEMP 36.9; O2SAT 98
[2023-06-24] MEDS: Petrolatum 33% Tube 1 APPLIC TOPICAL (09:27)
[2023-06-24] MEDS: predniSONE 20 MG Tablet PO (09:27)
[2023-06-24] MEDS: APIXABAN 2.5 MG TABLET (WCH) PO ×2 (09:27→21:31)
[2023-06-24] MEDS: Ascorbic Acid 500 MG Tablet PO (09:28)
[2023-06-24] MEDS: Fluticasone/Salmeterol 232-14 Inhaler 1 PUFF INHALATION ×2 (09:28→21:31)
[2023-06-24] MEDS: Pantoprazole Sodium 40 MG Tablet PO ×2 (09:28→21:31)
[2023-06-24] MEDS: Iron Polysaccharide Complex 150 MG CAPSULE PO (09:28)
[2023-06-24] MEDS: Cholecalciferol (VIT D3) 25 MCG TABLET (1,000 UNITS) PO (09:29)
[2023-06-24 10:54] VITALS: BP 108/68; PULSE 74
[2023-06-24 10:56] VITALS: PULSE 74
[2023-06-24] MEDS: Lisinopril 20 MG Tablet PO (10:56)
[2023-06-24] MEDS: Metoprolol Tartrate 50 MG Tablet PO ×2 (10:56→21:31)
[2023-06-24] MEDS: hydroCHLOROthiazide 12.5mg 12.5 MG PO (10:57)
--- NOTE | 2023-06-24 21:15 | NURSING ---
Telephone order received and read back per Dr. Latif to changed Senna-S to 1 tablet po BID PRN constipation per pt request, H&H in am d/t low hgb, and continue Eliquis at this time.
[2023-06-24 21:31] VITALS: BP 117/61; PULSE 90
[2023-06-24] MEDS: Nystatin Powder 15gm Bottle 1 APPLIC TOPICAL (21:40)
[2023-06-25 06:03] LABS: Hematocrit 27.4 % (40-54); Hemoglobin 7.7 g/dL (13.0-16.5)
[2023-06-25] MEDS: Sucralfate 1 GM Tablet PO ×3 (06:19→16:05)
[2023-06-25 07:03] VITALS: O2SAT 96
[2023-06-25] MEDS: APIXABAN 2.5 MG TABLET (WCH) PO ×2 (09:41→21:29)
[2023-06-25] MEDS: Iron Polysaccharide Complex 150 MG CAPSULE PO (09:42)
[2023-06-25] MEDS: hydroCHLOROthiazide 12.5mg 12.5 MG PO (09:42)
[2023-06-25] MEDS: Fluticasone/Salmeterol 232-14 Inhaler 1 PUFF INHALATION ×2 (09:42→21:27)
[2023-06-25 09:43] VITALS: BP 108/62; PULSE 95
[2023-06-25] MEDS: Pantoprazole Sodium 40 MG Tablet PO ×2 (09:43→21:27)
[2023-06-25] MEDS: Ascorbic Acid 500 MG Tablet PO (09:43)
[2023-06-25] MEDS: Metoprolol Tartrate 50 MG Tablet PO ×2 (09:43→21:27)
[2023-06-25] MEDS: Cholecalciferol (VIT D3) 25 MCG TABLET (1,000 UNITS) PO (09:44)
[2023-06-25] MEDS: Lisinopril 20 MG Tablet PO (09:44)
[2023-06-25] MEDS: Nystatin Powder 15gm Bottle 1 APPLIC TOPICAL ×2 (09:50→21:29)
[2023-06-25] MEDS: Petrolatum 33% Tube 1 APPLIC TOPICAL (09:52)
--- NOTE | 2023-06-25 13:04 | NURSING ---
NO for blood transfusion and occult stool for low Hgb. Patient made aware and to receive blood transfusion on 06/26/23 at 0815.
[2023-06-25 16:00] VITALS: BP 108/62; PULSE 95; RESP 20; TEMP 36.9; O2SAT 98
[2023-06-25 19:46] VITALS: PULSE 76; RESP 17; O2SAT 98
[2023-06-25 21:27] VITALS: BP 119/67; PULSE 78
[2023-06-25 21:32] VITALS: BP 119/67; PULSE 78; RESP 17; O2SAT 98
[2023-06-26] MEDS: Sucralfate 1 GM Tablet PO ×2 (06:16→16:55)
[2023-06-26 06:59] VITALS: O2SAT 93
[2023-06-26] MEDS: APIXABAN 2.5 MG TABLET (WCH) PO (07:50)
[2023-06-26 07:51] VITALS: BP 132/73; PULSE 84
[2023-06-26] MEDS: Fluticasone/Salmeterol 232-14 Inhaler 1 PUFF INHALATION ×2 (07:51→21:26)
[2023-06-26] MEDS: Iron Polysaccharide Complex 150 MG CAPSULE PO (07:51)
[2023-06-26] MEDS: hydroCHLOROthiazide 12.5mg 12.5 MG PO (07:51)
[2023-06-26] MEDS: Metoprolol Tartrate 50 MG Tablet PO ×2 (07:51→21:26)
[2023-06-26] MEDS: Cholecalciferol (VIT D3) 25 MCG TABLET (1,000 UNITS) PO (07:52)
[2023-06-26] MEDS: Ascorbic Acid 500 MG Tablet PO (07:52)
[2023-06-26] MEDS: Pantoprazole Sodium 40 MG Tablet PO ×2 (07:52→21:27)
[2023-06-26] MEDS: Lisinopril 20 MG Tablet PO (07:52)
[2023-06-26] MEDS: Petrolatum 33% Tube 1 APPLIC TOPICAL (07:55)
[2023-06-26] MEDS: Nystatin Powder 15gm Bottle 1 APPLIC TOPICAL ×2 (08:03→21:31)
[2023-06-26 08:38] VITALS: O2SAT 96
[2023-06-26 14:21] VITALS: BMI 29.5
[2023-06-26 15:43] VITALS: BP 150/77; PULSE 80; RESP 17; TEMP 36.6; O2SAT 99
--- NOTE | 2023-06-26 15:51 | EX.PCM.CON.G ---
HPI Consult Data Date of Consult: 06/26/23 HPI Narrative Reason for Consultation: Anemia HPI Narrative: MARK MUÑIZ, is a 73 M who presents is currently in TCU and I was called to see him due to decreasing hemoglobin. He was recently admitted with unresponsiveness, short of breath, has been coughing up for last few days. In the ED he was found to be in acute exacerbation of COPD and metabolic encephalopathy due to pseudonarcotics and was intubated and put on ventilator. He was diagnosed with acute on chronic hypercapnic respiratory failure secondary to COPD exacerbation. He was able to be extubated and is currently on 2 L, he may need oxygen set up at his home at the time of discharge, patient does have [employer] insurance. Infectious workup including blood cultures x 2, urine culture, respiratory panel, SARS-CoV-2, influenza and RSV PCR are negative. I saw him for iron deficiency anemia-he underwent an upper and lower endoscopy and was discovered to have large duodenal ulcers and gastric ulcers. His colonoscopy did not reveal any abnormality. Currently I am seeing him today due to decreasing hemoglobin to 7. Is been slowly drifting down. He does not know if he has had black tarry stools. He does have a history of atrial fibrillation and is on Eliquis 2.5 mg p.o. twice daily plus vitamin C and prednisone. [facility] Medical History (Updated 06/19/23 @ 19:[address] Yoshi Latif MD) Acute anemia Acute kidney injury Alcohol abuse COPD exacerbation Debility Duodenal ulcer Hyperlipidemia, unspecified Hypertension Tobacco abuse Upper gastrointestinal bleeding Home Medications cholecalciferol (vitamin D3) 25 mcg (1,000 unit) capsule (Vitamin D3) 25 mcg PO DAILY supplement 06/12/23 [History Last Taken 06/19/23] hydrochlorothiazide 12.5 mg tablet 12.5 mg PO DAILY fluid retention 06/12/23 [History Last Taken 06/19/23] metoprolol tartrate 50 mg tablet (Lopressor) 50 mg PO BID BP 06/12/23 [History Last Taken 06/19/23] apixaban 2.5 mg tablet (Eliquis) 2.5 mg PO BID Blood thinner 1 month #60 tabs 06/19/23 [Rx Last Taken Unknown] ascorbate calcium (vitamin C) 500 mg tablet 500 mg PO BID supplement 1 month #60 tabs 06/19/23 [Rx Last Taken Unknown] ferrous sulfate 325 mg (65 mg iron) tablet (FeroSul) 325 mg PO DAILY supplement #30 tabs 06/19/23 [Rx Last Taken Unknown] fluticasone 250 mcg-salmeterol 50 mcg/dose blistr powdr for inhalation (Advair Diskus) 1 inh inhalation BID Breathing 1 month #60 ea 06/19/23 [Rx Last Taken Unknown] lisinopril 20 mg tablet 20 mg PO DAILY BP #0 tabs 06/19/23 [Rx Last Taken 06/19/23] pantoprazole 40 mg tablet,delayed release (Protonix) 40 mg PO BID GI 12 weeks #168 tabs 06/19/23 [Rx Last Taken Unknown] prednisone 20 mg tablet 20 mg PO DAILY steroid 5 days #5 tabs 06/19/23 [Rx Last Taken Unknown] sucralfate 1 gram tablet (Carafate) 1 g PO TID stomach 4 weeks #84 tabs 06/19/23 [Rx Last Taken Unknown] Allergy/AdvReac Type Severity Reaction Status Date / Time No Known Allergies Allergy Verified 06/26/23 08:31 Social History (Updated 06/19/23 @ 19:[address] Yoshi Latif MD) household members: spouse Smoking Status: Current every day smoker tobacco type: cigarettes alcohol intake: current alcohol intake frequency: 0-2 drinks per day Alcohol type: beer substance use type: does not use ROS Constitutional Constitutional: Reports weakness; Denies chills, fever(s) or weight gain ENT HEENT: Denies headache(s), nasal congestion or nasal discharge Cardiovascular Cardiovascular: Denies chest pain or palpitations Respiratory/Chest Respiratory/Chest: Denies cough, excessive phlegm production or shortness of breath with exertion Gastrointestinal Gastrointestinal: Denies abdominal pain, nausea or vomiting Genitourinary Genitourinary: Denies dysuria Musculoskeletal Musculoskeletal: Denies joint pain or joint swelling Integumentary Integumentary: Denies rash or wounds Neurologic Neurologic: Denies focal weakness, numbness or tingling Psychiatric Psychiatric: Denies anxiety, auditory hallucinations, depression, homicidal ideation or suicidal ideation Physical Exam Const alert General Appearance: cooperative HEENT normocephalic Eyes PERRL and EOMs intact bilaterally Neck supple, no JVD and no carotid bruits Resp normal respiratory effort, normal air movement and clear to auscultation bilaterally Auscultation: rhonchi lower bilaterally Cardio regular rate and regular rhythm GI normal to inspection, nondistended, normoactive bowel sounds, non-tender and non-distended Extremity normal capillary refill General Extremity: Negative for edema Skin no rashes or lesions noted General Skin Exam: no breakdown Psych affect normal Appearance: appropriate Lab / Micro Data 06/25/23 05:17 06/20/23 05:28 Labs: Laboratory Results - last 24 hr 06/25/23 10:55: Blood Type Cancelled, Antibody Screen Cancelled, Crossmatch See Detail Micro: Microbiology 06/25/23 18:45 Stool Stool Occult Blood (ENEIDA) - Final Occult Blood Positive Assessment & Plan Assessment/Plan (1) Anemia: QUALIFIERS: Anemia type: unspecified type Qualified Code(s): D64.9 - Anemia, unspecified PLAN: 73-year-old gentleman with COPD, hyponatremia status post acute hypoxic respiratory failure needing intubation. Patient was discovered to have a significant iron deficiency anemia. Patient is a patient's agreed to undergo repeat upper endoscopy for evaluation of his anemia. Patient and patient's were explained alternatives, risk, benefits include not withstanding bleeding, infection, sepsis, perforation, need for emergent urgent . He will have an ASA of 3. N.p.o. past midnight Charges/Coding Visit Charges Inpatient E&M: 227[address] [facility] Init L2
[2023-06-26] MEDS: COVID VAC 23-24(12UP)(ANDU)/PF 50 MCG/0.5 ML SYRINGE IM (16:57)
[2023-06-26 20:03] VITALS: BP 119/70; PULSE 83; RESP 18; TEMP 36.6; O2SAT 97
[2023-06-26 21:26] VITALS: BP 119/70; PULSE 83
[2023-06-26] MEDS: 0.9% Saline Lock 10 ML Syringe IV (21:26)
[2023-06-27 05:59] LABS: Absolute Lymphocyte Count 0.67 X10^3/uL (0.83-4.51); Absolute Neutrophil Count 5.4 X10^3/uL (2.0-7.7); Basophil# 0.02 X10^3/uL; Basophil% 0.3 % (0-1); Eosinophil# 0.11 X10^3/uL; Eosinophils% 1.6 % (0-5); Hematocrit 30.9 % (40-54); Hemoglobin 9.2 g/dL (13.0-16.5); Lymphocyte # 0.67 X10^3/ul (0.83-4.51); Lymphocyte % 9.6 % (19-41); Mean Corp Hgb Conc 29.8 g/dL (32-36); Mean Corpuscular Hgb 25.4 pg (27.0-32.0); Mean Corpuscular Volume 85.4 fL (80-94); Mean Platelet Vol. 9.9 fl (6.2-12.0); Monocyte# 0.73 X10^3/uL; Monocyte% 10.5 % (0-10); NRBC Flagged by Analyzer 0 % (0-5); Neutrophil # 5.41 X10^3/uL (2.7-7.7); Neutrophil % 77.4 % (47-70); POSITIVE MORPHOLOGY YES; Platelet Count 220 K/mm3 (150-450); RBC Distribution Width CV 24.4 % (11.6-14.6); Red Blood Count 3.62 M/mm3 (4.6-6.2)
[2023-06-27 06:06] LABS: Differential Indicated SCAN CRITERIA MET
[2023-06-27 06:33] LABS: Anion Gap 4 (5-15); BUN 13 mg/dL (7-18); BUN/Creat Ratio 18.1 RATIO (10-20); Calcium,Total 7.7 mg/dL (8.5-10.1); Chloride 95 mmol/L (98-107); Creatinine, Serum 0.72 mg/dL (0.70-1.30); EST Glomerular Filtration Rate 113 mL/min (>60); Est Glom Filt Rate - Afr Amer 137 mL/min (>60); Estimated Creatinine Clearance 91.56 ml/min; Glucose 92 mg/dL (74-106); Potassium 3.6 mmol/L (3.5-5.1); Sodium Level 137 mmol/L (136-145)
[2023-06-27 07:22] LABS: Differential Comment SCANNED
[2023-06-27 07:23] LABS: Anisocytosis 1+; Hypochromasia 1+
[2023-06-27 08:23] VITALS: O2SAT 99
--- NOTE | 2023-06-27 09:10 | NURSING ---
Television Mechanic Note; MDS for 06/26/2023 Complete
[2023-06-27 09:32] VITALS: BP 152/80; PULSE 88; RESP 18; TEMP 36.6; O2SAT 92
[2023-06-27] MEDS: 0.9% Saline Lock 10 ML Syringe IV ×2 (09:36→22:00)
[2023-06-27] MEDS: Petrolatum 33% Tube 1 APPLIC TOPICAL (09:36)
[2023-06-27] MEDS: Fluticasone/Salmeterol 232-14 Inhaler 1 PUFF INHALATION ×2 (09:37→21:57)
[2023-06-27] MEDS: Nystatin Powder 15gm Bottle 1 APPLIC TOPICAL ×2 (09:38→21:57)
[2023-06-27] MEDS: Tuberculin,Purif.prot.deriv. 50 TU/ML Vial 0.100000000000000006 ML ID (09:41)
--- NOTE | 2023-06-27 09:44 | NURSING ---
pt NPO for EGD this AM. pleasant and talkative. resting in recliner chair. call light in reach.
--- NOTE | 2023-06-27 10:10 | CASEMGMT ---
Social Work IDT met with patient and via conference call for care plan meeting. Discussed patient's progress in PT/OT/SN. Educated to Medicare benefit. Pt has no copay coverage and day 21 is 3, the goal for DC to avoid copays. Pt is progressing well. Prior to DC, pt will need to complete the steps to main level and DC O2. Pt is going for a procedure this date. Will follow the next few days and follow up with pt to discuss DC date. SW will continue to follow. BIMS () and PHQ-2 () completed for MDS assessment. JIM Moralez VEHICLE PAINTER
--- NOTE | 2023-06-27 10:20 | NURSING ---
pt off unit via bed with endoscopy at this time
[2023-06-27 13:42] VITALS: BP 144/75; PULSE 89
[2023-06-27] MEDS: Cholecalciferol (VIT D3) 25 MCG TABLET (1,000 UNITS) PO (13:42)
[2023-06-27] MEDS: hydroCHLOROthiazide 12.5mg 12.5 MG PO (13:42)
[2023-06-27] MEDS: Lisinopril 20 MG Tablet PO (13:42)
[2023-06-27] MEDS: Ascorbic Acid 500 MG Tablet PO (13:42)
[2023-06-27] MEDS: Metoprolol Tartrate 50 MG Tablet PO ×2 (13:42→21:58)
[2023-06-27] MEDS: Iron Polysaccharide Complex 150 MG CAPSULE PO (13:42)
[2023-06-27] MEDS: Pantoprazole Sodium 40 MG Tablet PO ×2 (13:43→21:57)
--- NOTE | 2023-06-27 14:26 | NURSING ---
pt eliquis on hold d/t bleeding, Pt did not know why he was on eliquis. Teaching given regarding AFIB along with a booklet, at side and verbalized understanding.
[2023-06-27] MEDS: Sucralfate 1 GM Tablet PO (16:05)
--- NOTE | 2023-06-27 16:09 | NURSING ---
checked oxygen sat on room air, 99%. pt denies SOB, has been off since therapy. doing great
[2023-06-27 19:37] VITALS: PULSE 84; RESP 18; O2SAT 95
[2023-06-27 21:58] VITALS: BP 141/70; PULSE 81
[2023-06-28] MEDS: Sucralfate 1 GM Tablet PO ×3 (06:50→17:13)
[2023-06-28 06:51] LABS: Hematocrit 31.9 % (40-54); Hemoglobin 9.6 g/dL (13.0-16.5)
--- NOTE | 2023-06-28 06:53 | NURSING ---
+3 pitting edema continues to BLE, lung sounds clear A&P. Written communication left for Dr. Latif
[2023-06-28] MEDS: Iron Polysaccharide Complex 150 MG CAPSULE PO (08:41)
[2023-06-28] MEDS: Fluticasone/Salmeterol 232-14 Inhaler 1 PUFF INHALATION ×2 (08:41→21:02)
[2023-06-28 08:42] VITALS: BP 149/70; PULSE 79
[2023-06-28] MEDS: hydroCHLOROthiazide 12.5mg 12.5 MG PO (08:42)
[2023-06-28] MEDS: Metoprolol Tartrate 50 MG Tablet PO ×2 (08:42→21:02)
[2023-06-28] MEDS: Ascorbic Acid 500 MG Tablet PO (08:43)
[2023-06-28] MEDS: Cholecalciferol (VIT D3) 25 MCG TABLET (1,000 UNITS) PO (08:43)
[2023-06-28] MEDS: Pantoprazole Sodium 40 MG Tablet PO ×2 (08:43→21:02)
[2023-06-28] MEDS: Lisinopril 20 MG Tablet PO (08:43)
[2023-06-28] MEDS: Potassium Chloride Oral Tablet 20 MEQ PO (08:44)
[2023-06-28] MEDS: Furosemide 40 MG Tablet PO (08:44)
[2023-06-28] MEDS: Petrolatum 33% Tube 1 APPLIC TOPICAL (08:46)
[2023-06-28] MEDS: Nystatin Powder 15gm Bottle 1 APPLIC TOPICAL (08:48)
[2023-06-28 13:08] VITALS: BP 159/79; PULSE 60; RESP 17; TEMP 36.4; O2SAT 96
[2023-06-28 16:21] VITALS: O2SAT 95
[2023-06-28] MEDS: 0.9% Saline Lock 10 ML Syringe IV (17:17)
[2023-06-28 19:40] VITALS: PULSE 72
[2023-06-28 21:02] VITALS: BP 139/75; PULSE 72
[2023-06-29] MEDS: Sucralfate 1 GM Tablet PO ×3 (05:49→16:22)
[2023-06-29 10:12] VITALS: BP 161/76; PULSE 71; RESP 17; TEMP 36.6; O2SAT 98
[2023-06-29] MEDS: Iron Polysaccharide Complex 150 MG CAPSULE PO (10:16)
[2023-06-29] MEDS: Petrolatum 33% Tube 1 APPLIC TOPICAL (10:16)
[2023-06-29] MEDS: Potassium Chloride Oral Tablet 20 MEQ PO (10:16)
[2023-06-29] MEDS: Furosemide 40 MG Tablet PO (10:17)
[2023-06-29] MEDS: Fluticasone/Salmeterol 232-14 Inhaler 1 PUFF INHALATION ×2 (10:17→21:46)
[2023-06-29] MEDS: hydroCHLOROthiazide 12.5mg 12.5 MG PO (10:17)
[2023-06-29] MEDS: Pantoprazole Sodium 40 MG Tablet PO ×2 (10:17→21:46)
[2023-06-29] MEDS: Lisinopril 20 MG Tablet PO (10:18)
[2023-06-29] MEDS: Cholecalciferol (VIT D3) 25 MCG TABLET (1,000 UNITS) PO (10:18)
[2023-06-29] MEDS: Ascorbic Acid 500 MG Tablet PO (10:18)
[2023-06-29 10:20] VITALS: PULSE 71
[2023-06-29] MEDS: Metoprolol Tartrate 50 MG Tablet PO ×2 (10:20→21:46)
[2023-06-29 16:01] VITALS: O2SAT 95
[2023-06-29 19:53] VITALS: PULSE 68; RESP 16; O2SAT 98
[2023-06-29 21:46] VITALS: BP 120/76; PULSE 83
[2023-06-29] MEDS: 0.9% Saline Lock 10 ML Syringe IV (21:48)
[2023-06-30] MEDS: Sucralfate 1 GM Tablet PO ×3 (06:10→15:58)
[2023-06-30 06:21] VITALS: PULSE 86; RESP 18; O2SAT 98
[2023-06-30 07:10] LABS: Anion Gap 5 (5-15); BUN 12 mg/dL (7-18); BUN/Creat Ratio 18.1 RATIO (10-20); Calcium,Total 8.3 mg/dL (8.5-10.1); Chloride 100 mmol/L (98-107); Creatinine, Serum 0.66 mg/dL (0.70-1.30); EST Glomerular Filtration Rate 124 mL/min (>60); Est Glom Filt Rate - Afr Amer 150 mL/min (>60); Estimated Creatinine Clearance 91.56 ml/min; Glucose 91 mg/dL (74-106); Potassium 4.3 mmol/L (3.5-5.1); Sodium Level 131 mmol/L (136-145)
[2023-06-30 08:49] VITALS: BP 123/63; PULSE 77; RESP 16; TEMP 36.2; O2SAT 99
[2023-06-30 08:50] VITALS: PULSE 77
[2023-06-30] MEDS: Ascorbic Acid 500 MG Tablet PO (08:50)
[2023-06-30] MEDS: Metoprolol Tartrate 50 MG Tablet PO ×2 (08:50→20:53)
[2023-06-30] MEDS: Cholecalciferol (VIT D3) 25 MCG TABLET (1,000 UNITS) PO (08:50)
[2023-06-30] MEDS: Furosemide 40 MG Tablet PO (08:50)
[2023-06-30] MEDS: Potassium Chloride Oral Tablet 20 MEQ PO (08:50)
[2023-06-30] MEDS: Lisinopril 20 MG Tablet PO (08:50)
[2023-06-30] MEDS: Pantoprazole Sodium 40 MG Tablet PO ×2 (08:50→20:55)
[2023-06-30] MEDS: Fluticasone/Salmeterol 232-14 Inhaler 1 PUFF INHALATION ×2 (08:51→20:53)
[2023-06-30] MEDS: Iron Polysaccharide Complex 150 MG CAPSULE PO (08:51)
[2023-06-30] MEDS: hydroCHLOROthiazide 12.5mg 12.5 MG PO (08:51)
[2023-06-30] MEDS: Nystatin Powder 15gm Bottle 1 APPLIC TOPICAL ×2 (08:52→20:54)
[2023-06-30] MEDS: 0.9% Saline Lock 10 ML Syringe IV ×2 (08:54→20:52)
[2023-06-30 20:53] VITALS: BP 125/72; PULSE 83
[2023-06-30] MEDS: Petrolatum 33% Tube 1 APPLIC TOPICAL (20:53)
[2023-06-30 21:14] VITALS: BP 125/72; PULSE 83
[2023-07-01] MEDS: Sucralfate 1 GM Tablet PO ×3 (06:19→16:54)
[2023-07-01 07:40] VITALS: BP 142/65; PULSE 76; RESP 18; TEMP 36.3; O2SAT 98
[2023-07-01] MEDS: Cholecalciferol (VIT D3) 25 MCG TABLET (1,000 UNITS) PO (07:46)
[2023-07-01] MEDS: Lisinopril 20 MG Tablet PO (07:46)
[2023-07-01] MEDS: Ascorbic Acid 500 MG Tablet PO (07:46)
[2023-07-01] MEDS: Fluticasone/Salmeterol 232-14 Inhaler 1 PUFF INHALATION ×2 (07:46→20:12)
[2023-07-01 07:47] VITALS: PULSE 76
[2023-07-01] MEDS: Iron Polysaccharide Complex 150 MG CAPSULE PO (07:47)
[2023-07-01] MEDS: Pantoprazole Sodium 40 MG Tablet PO ×2 (07:47→20:13)
[2023-07-01] MEDS: hydroCHLOROthiazide 12.5mg 12.5 MG PO (07:47)
[2023-07-01] MEDS: Metoprolol Tartrate 50 MG Tablet PO ×2 (07:47→20:12)
[2023-07-01] MEDS: Potassium Chloride Oral Tablet 20 MEQ PO (07:47)
[2023-07-01] MEDS: Furosemide 40 MG Tablet PO (07:47)
[2023-07-01] MEDS: Nystatin Powder 15gm Bottle 1 APPLIC TOPICAL ×2 (07:49→20:13)
[2023-07-01 20:12] VITALS: BP 137/66; PULSE 80
[2023-07-01] MEDS: Petrolatum 33% Tube 1 APPLIC TOPICAL (20:12)
[2023-07-01 20:20] VITALS: BP 137/66; PULSE 80; O2SAT 98
[2023-07-01 22:09] VITALS: PULSE 80; RESP 15; O2SAT 98
[2023-07-02 05:47] VITALS: RESP 16
[2023-07-02] MEDS: Sucralfate 1 GM Tablet PO ×3 (06:00→16:46)
[2023-07-02 06:41] LABS: Anion Gap 4 (5-15); BUN 16 mg/dL (7-18); BUN/Creat Ratio 20.7 RATIO (10-20); Calcium,Total 8.2 mg/dL (8.5-10.1); Chloride 99 mmol/L (98-107); Creatinine, Serum 0.77 mg/dL (0.70-1.30); EST Glomerular Filtration Rate 104 mL/min (>60); Est Glom Filt Rate - Afr Amer 126 mL/min (>60); Estimated Creatinine Clearance 91.56 ml/min; Glucose 88 mg/dL (74-106); Potassium 3.9 mmol/L (3.5-5.1); Sodium Level 134 mmol/L (136-145)
[2023-07-02 08:06] LABS: Hematocrit 34.3 % (40-54); Hemoglobin 10.2 g/dL (13.0-16.5)
[2023-07-02] MEDS: Fluticasone/Salmeterol 232-14 Inhaler 1 PUFF INHALATION ×2 (09:23→21:33)
[2023-07-02] MEDS: Iron Polysaccharide Complex 150 MG CAPSULE PO (09:23)
[2023-07-02] MEDS: Potassium Chloride Oral Tablet 20 MEQ PO (09:23)
[2023-07-02 09:24] VITALS: BP 115/60; PULSE 89
[2023-07-02] MEDS: Metoprolol Tartrate 50 MG Tablet PO ×2 (09:24→21:33)
[2023-07-02] MEDS: hydroCHLOROthiazide 12.5mg 12.5 MG PO (09:24)
[2023-07-02] MEDS: Cholecalciferol (VIT D3) 25 MCG TABLET (1,000 UNITS) PO (09:24)
[2023-07-02] MEDS: Lisinopril 20 MG Tablet PO (09:24)
[2023-07-02] MEDS: Furosemide 40 MG Tablet PO (09:24)
[2023-07-02] MEDS: Pantoprazole Sodium 40 MG Tablet PO ×2 (09:24→21:33)
[2023-07-02] MEDS: Ascorbic Acid 500 MG Tablet PO (09:24)
[2023-07-02 10:13] VITALS: BP 134/87; PULSE 87
--- NOTE | 2023-07-02 10:22 | MDS.RN ---
Information for the mds was obtained from review of the clinical record, interview of resident, staff, and direct observation of resident's care.
--- NOTE | 2023-07-02 11:17 | NURSING ---
Discussed pneumonia vaccine with patient. [facility]
[2023-07-02] MEDS: Nystatin Powder 15gm Bottle 1 APPLIC TOPICAL ×2 (11:46→21:36)
[2023-07-02 13:55] VITALS: BP 123/71; PULSE 74; RESP 20; TEMP 36.8; O2SAT 99
[2023-07-02 21:33] VITALS: BP 102/62; PULSE 83
[2023-07-02] MEDS: Petrolatum 33% Tube 1 APPLIC TOPICAL (21:36)
[2023-07-02] MEDS: APIXABAN 2.5 MG TABLET (WCH) PO (22:20)
[2023-07-03] MEDS: Sucralfate 1 GM Tablet PO ×3 (06:40→16:17)
[2023-07-03 07:03] VITALS: O2SAT 98
[2023-07-03] MEDS: Fluticasone/Salmeterol 232-14 Inhaler 1 PUFF INHALATION ×2 (08:56→20:26)
[2023-07-03] MEDS: Iron Polysaccharide Complex 150 MG CAPSULE PO (08:56)
[2023-07-03] MEDS: hydroCHLOROthiazide 12.5mg 12.5 MG PO (08:56)
[2023-07-03] MEDS: APIXABAN 2.5 MG TABLET (WCH) PO ×2 (08:56→20:24)
[2023-07-03] MEDS: Potassium Chloride Oral Tablet 20 MEQ PO (08:56)
[2023-07-03] MEDS: Furosemide 40 MG Tablet PO (08:56)
[2023-07-03 08:57] VITALS: BP 127/64; PULSE 79
[2023-07-03] MEDS: Cholecalciferol (VIT D3) 25 MCG TABLET (1,000 UNITS) PO (08:57)
[2023-07-03] MEDS: Nystatin Powder 15gm Bottle 1 APPLIC TOPICAL ×2 (08:57→20:25)
[2023-07-03] MEDS: Pantoprazole Sodium 40 MG Tablet PO ×2 (08:57→20:25)
[2023-07-03] MEDS: Metoprolol Tartrate 50 MG Tablet PO ×2 (08:57→20:24)
[2023-07-03] MEDS: Ascorbic Acid 500 MG Tablet PO (08:57)
[2023-07-03] MEDS: Lisinopril 20 MG Tablet PO (08:58)
[2023-07-03 16:00] VITALS: BP 120/79; PULSE 70; RESP 16; TEMP 36.8; O2SAT 97
--- NOTE | 2023-07-03 16:54 | CASEMGMT ---
Social Work SW met with pt and to discuss DC plans. Both are agreeable/ready for DC. Pt requested home 07/05 as that is the couple's wedding anniversary. IDT agreed. SW offered HHC vs OP vs HEP. Pt denied needing any formal therapy and will follow HEP. Pt requesting rollator. SW to coordinate and educated to $60 fee. Pt agreed to pay. Family to transport. Plan: DC home with 07/05, HEP, rollator Carol Caraballo MSW FLANGING ROLL OPERATOR
--- NOTE | 2023-07-03 19:28 | DS.PCM_ITS ---
Providers Date of Admission: 06/19/23 Primary Care Physician: [facility] Consultations 06/26/23 10:39 Consult: Gastroenterology Routine Consulting Provider: [facility] Reason for Consult: Anemia, blood in stool. EMERGENT Consult: No MD Notified: Yes Date Notified: 06/26/23 Time Notified: 10:39 Method of Notification: Text Reason For Visit: ACUTE HYPOXIC RESPIRATORY FAILURE Diagnosis Discharge Diagnosis (1) Anemia: Status: Acute Code(s): D64.9 - Anemia, unspecified Qualifiers: Anemia type: unspecified type Qualified Code(s): D64.9 - Anemia, unspecified Plan 73 year old male with below past medical history hospitalized for acute respiratory failure with hypoxia requiring intubation 2/2 copd exacerbation, complicated by anemia 2/2 duodenal ulcer bleeding, hyponatremia, acute kidney injury, admitted to TCU with debility, here for rehabilitation, strengthening, prior to discharge home with . * Debility - PT/OT. * Dysphagia - ST. * Pain - Tylenol 1000mg q6 prn pain (1-10). * Bowel - senna/colace 1 tablet bid, Magnesium citrate 300ml daily prn, Dulcolax 10mg pr daily prn. * Adult immunization - Administer pneumonia vaccine, covid vaccine, flu vaccine as appropriate. * DVT prophylaxis - on Eliquis. * Atrial fibrillation - Metoprolol 50mg bid, Eliquis 2.5mg bid. * Iron deficiency anemia - Ferrex 150mg daily, Vitamin C 500mg daily. * Vitamin D deficiency - D3 25mcg daily. * COPD - Advair 232-14 1 puff bid, Prednisone 20mg daily thru 06/24/2023. * Hypertension - Metoprolol 50mg bid, Lisinopril 20mg daily, HCTZ 12.5mg daily. * Duodenal ulcer - Pantoprazole 40mg bid, Sucralfate 1gm bid. * Skin irritation - Eucerin topical daily. Medications at Discharge Home Medications cholecalciferol (vitamin D3) 25 mcg (1,000 unit) capsule (Vitamin D3) 25 mcg PO DAILY supplement 06/12/23 hydrochlorothiazide 12.5 mg tablet 12.5 mg PO DAILY fluid retention 06/12/23 metoprolol tartrate 50 mg tablet (Lopressor) 50 mg PO BID BP 06/12/23 ascorbate calcium (vitamin C) 500 mg tablet 500 mg PO BID supplement 1 month #60 tabs 06/19/23 fluticasone 250 mcg-salmeterol 50 mcg/dose blistr powdr for inhalation (Advair Diskus) 1 inh inhalation BID Breathing 1 month #60 ea 06/19/23 lisinopril 20 mg tablet 20 mg PO DAILY BP #0 tabs 06/19/23 pantoprazole 40 mg tablet,delayed release (Protonix) 40 mg PO BID GI 12 weeks #168 tabs 06/19/23 apixaban 5 mg tablet (Eliquis) 2.5 mg (1/2 x 5 mg) PO BID 30 days #30 tabs 07/03/23 ascorbic acid (vitamin C) 500 mg tablet 500 mg PO 1000 30 days #30 tabs 07/03/23 cholecalciferol (vitamin D3) 25 mcg (1,000 unit) tablet 25 mcg PO DAILY 30 days #30 tabs 07/03/23 fluticasone 232 mcg-salmeterol 14 mcg/actuation breath activated powdr 1 inh inh alation BID 30 days #1 ea 07/03/23 pantoprazole 40 mg tablet,delayed release 40 mg PO BID 30 days #60 tabs 07/03/23 polysaccharide iron complex 150 mg iron capsule (Ferrex) 150 mg PO DAILY 30 days #30 caps 07/03/23 sucralfate 1 gram tablet 1 g PO TID@0700,1100,1600 30 days #90 tabs 07/03/23 Hospital Course Operations None Procedures EGD Summary of Care Provided Minutes Spent on Discharge: 35 Hospital Course: 73 year old male with below past medical history hospitalized for acute respiratory failure with hypoxia requiring intubation 2/2 copd exacerbation, complicated by anemia 2/2 duodenal ulcer bleeding, hyponatremia, acute kidney injury, admitted to TCU with debility, here for rehabilitation, strengthening, prior to discharge home with . 06/27/2023 Dr. Gómez EGD: Impressions : - Normal esophagus. - Hiatal hernia. - Non-bleeding duodenal ulcers with no stigmata of bleeding. Biopsied. - Oozing duodenal ulcers with pigmented material. Treated with a heater probe. Recommendations : - Return patient to referring hospital for ongoing care. - Resume previous diet. - Use Protonix (pantoprazole) 40 mg PO BID for 12 weeks. - No aspirin, ibuprofen, naproxen, or other non-steroidal anti-inflammatory drugs for 2 weeks. Discharge home with 07/06/2023, no therapy, rollator. Rollator: Patient is unsafe to use a cane and requires a walker for ambulation in the home and the community. Physical Exam Const alert General Appearance: cooperative HEENT normocephalic Eyes PERRL and EOMs intact bilaterally Neck supple, no JVD and no carotid bruits Resp normal respiratory effort, normal air movement and clear to auscultation bilaterally Cardio regular rate and regular rhythm GI normal to inspection, nondistended, normoactive bowel sounds, non-tender and non-distended Extremity normal capillary refill General Extremity: Negative for edema Skin no rashes or lesions noted General Skin Exam: no breakdown Psych affect normal Appearance: appropriate Weight / BMI Weight Weight: 93.349 kg Body Mass Index (BMI) 29.5 ABG / Lab / Microbiology Data 07/02/23 05:33 07/02/23 05:33 Microbiology: Microbiology 06/25/23 18:45 Stool Stool Occult Blood (ENEIDA) - Final Occult Blood Positive 06/22/23 11:10 Urine, Clean Catch Urine Culture - Final Culture exhibits no growth. D/C Instructions Discharge Diet: No restrictions Discharge Activity: Return to Normal Activity, May Shower and Use Walker Weight Bearing Status: Weight bearing as tolerated Call your doctor if you observe: Fever of 101 or Higher, Inability to urinate, Inability to have a bowel movement, Shortness of breath, Dizziness, Fainting spells, Swelling in the ankles, Chest pain and Uncontrolled pain Additional Instructions: Discharge home with 07/06/2023, no therapy, rollator. Rollator: Patient is unsafe to use a cane and requires a walker for ambulation in the home and the community. Meaningful Use Info Meaningful Use Diagnoses (Choose all that apply): None applicable Discharge Plan Admission Admit Date/Time: 06/19/23 15:00 Primary Reason for Your Visit: Debility. Attending Provider: Yoshi Latif Chi Primary Care Provider: [facility] Instructions Additional Instructions / Restrictions: Discharge home with 07/06/2023, no therapy, rollator. Rollator: Patient is unsafe to use a cane and requires a walker for ambulation in the home and the community. Discharge Orders/Prescriptions Prescriptions: New ascorbic acid (vitamin C) 500 mg Tablet 500 mg PO 1000 30 Days Qty: 30 0RF pantoprazole 40 mg Tablet,Delayed Release (Dr/Ec) 40 mg PO BID 30 Days Qty: 60 0RF cholecalciferol (vitamin D3) 25 mcg (1,000 unit) Tablet 25 mcg PO DAILY 30 Days Qty: 30 0RF fluticasone propion-salmeterol 232-14 mcg/actuation Aerosol Powdr Breath Activated 1 inh inhalation BID 30 Days Qty: 1 0RF sucralfate 1 gram Tablet 1 g PO TID@0700,1100,1600 30 Days Qty: 90 0RF polysaccharide iron complex [Ferrex 150] 150 mg iron Capsule 150 mg PO DAILY 30 Days Qty: 30 0RF Eliquis 5 mg Tablet 2.5 mg PO BID 30 Days Qty: 30 0RF Continued metoprolol tartrate [Lopressor] 50 mg tablet 50 mg PO BID hydrochlorothiazide 12.5 mg tablet 12.5 mg PO DAILY lisinopril 20 mg Tablet 20 mg PO DAILY Qty: 0 0RF No Action cholecalciferol (vitamin D3) [Vitamin D3] 25 mcg (1,000 unit) capsule 25 mcg PO DAILY fluticasone propion-salmeterol [Advair Diskus] 250-50 mcg/dose blister with device 1 inh inhalation BID 30 Days Qty: 60 0RF pantoprazole [Protonix] 40 mg tablet,delayed release (DR/EC) 40 mg PO BID 84 Days Qty: 168 0RF ascorbate calcium (vitamin C) 500 mg tablet 500 mg PO BID 30 Days Qty: 60 3RF Referrals / Follow Up: Jayesh Gómez DO [Med Staff - Active Staff] - (suggested repeat EGD 12weeks from 06/28/23) [facility] - Disposition Disposition (needs filled in before D/C Order can be placed): Home, Self Care
[2023-07-03 20:24] VITALS: BP 136/63; PULSE 72
[2023-07-03 20:33] VITALS: O2SAT 95
[2023-07-04 05:51] LABS: Absolute Lymphocyte Count 0.67 X10^3/uL (0.83-4.51); Absolute Neutrophil Count 2.9 X10^3/uL (2.0-7.7); Basophil# 0.03 X10^3/uL; Basophil% 0.7 % (0-1); Eosinophil# 0.05 X10^3/uL; Eosinophils% 1.2 % (0-5); Hematocrit 31.1 % (40-54); Hemoglobin 9.6 g/dL (13.0-16.5); Lymphocyte # 0.67 X10^3/ul (0.83-4.51); Lymphocyte % 15.8 % (19-41); Mean Corp Hgb Conc 30.9 g/dL (32-36); Mean Corpuscular Hgb 26.6 pg (27.0-32.0); Mean Corpuscular Volume 86.1 fL (80-94); Mean Platelet Vol. 9.7 fl (6.2-12.0); Monocyte# 0.54 X10^3/uL; Monocyte% 12.7 % (0-10); NRBC Flagged by Analyzer 0 % (0-5); Neutrophil # 2.93 X10^3/uL (2.7-7.7); Neutrophil % 69.1 % (47-70); POSITIVE MORPHOLOGY YES; Platelet Count 291 K/mm3 (150-450); RBC Distribution Width CV 25.6 % (11.6-14.6); RBC Distribution Width SD 79.3 fl (35.1-43.9); Red Blood Count 3.61 M/mm3 (4.6-6.2); White Blood Count 4.2 K/mm3 (4.4-11.0)
[2023-07-04 05:53] LABS: Differential Indicated SCAN CRITERIA MET
[2023-07-04 06:09] LABS: Anion Gap 7 (5-15); BUN 14 mg/dL (7-18); Chloride 98 mmol/L (98-107); Creatinine, Serum 0.74 mg/dL (0.70-1.30); EST Glomerular Filtration Rate 110 mL/min (>60); Est Glom Filt Rate - Afr Amer 134 mL/min (>60); Estimated Creatinine Clearance 91.56 ml/min; Glucose 94 mg/dL (74-106); Potassium 4.2 mmol/L (3.5-5.1); Sodium Level 136 mmol/L (136-145)
[2023-07-04] MEDS: Sucralfate 1 GM Tablet PO ×3 (06:30→16:33)
[2023-07-04 06:41] VITALS: RESP 15
[2023-07-04 07:29] LABS: Anisocytosis 2+; Hypochromasia 2+
[2023-07-04 07:32] LABS: Other RBC Morphology 2+
[2023-07-04] MEDS: Iron Polysaccharide Complex 150 MG CAPSULE PO (09:55)
[2023-07-04] MEDS: hydroCHLOROthiazide 12.5mg 12.5 MG PO (09:55)
[2023-07-04] MEDS: APIXABAN 2.5 MG TABLET (WCH) PO ×2 (09:55→20:29)
[2023-07-04 09:56] VITALS: BP 104/54; PULSE 68
[2023-07-04] MEDS: Cholecalciferol (VIT D3) 25 MCG TABLET (1,000 UNITS) PO (09:56)
[2023-07-04] MEDS: Pantoprazole Sodium 40 MG Tablet PO ×2 (09:56→20:30)
[2023-07-04] MEDS: Metoprolol Tartrate 50 MG Tablet PO ×2 (09:56→20:30)
[2023-07-04] MEDS: Ascorbic Acid 500 MG Tablet PO (09:56)
[2023-07-04] MEDS: Lisinopril 20 MG Tablet PO (09:56)
[2023-07-04] MEDS: Fluticasone/Salmeterol 232-14 Inhaler 1 PUFF INHALATION ×2 (09:57→20:27)
[2023-07-04] MEDS: Nystatin Powder 15gm Bottle 1 APPLIC TOPICAL ×2 (09:59→20:30)
[2023-07-04 11:00] VITALS: BMI 27.0
[2023-07-04 16:00] VITALS: BP 131/60; PULSE 65; RESP 16; TEMP 36.7; O2SAT 97
[2023-07-04 20:30] VITALS: BP 135/68; PULSE 83
[2023-07-04] MEDS: Petrolatum 33% Tube 1 APPLIC TOPICAL (20:31)
[2023-07-05 06:09] LABS: Hematocrit 33.2 % (40-54); Hemoglobin 10.2 g/dL (13.0-16.5)
[2023-07-05] MEDS: Sucralfate 1 GM Tablet PO ×3 (06:09→16:28)
[2023-07-05 08:24] VITALS: BP 133/65; PULSE 71; RESP 16; TEMP 36.4; O2SAT 97
[2023-07-05 08:28] VITALS: PULSE 71
[2023-07-05] MEDS: Cholecalciferol (VIT D3) 25 MCG TABLET (1,000 UNITS) PO (08:28)
[2023-07-05] MEDS: Pantoprazole Sodium 40 MG Tablet PO ×2 (08:28→21:51)
[2023-07-05] MEDS: hydroCHLOROthiazide 12.5mg 12.5 MG PO (08:28)
[2023-07-05] MEDS: Lisinopril 20 MG Tablet PO (08:28)
[2023-07-05] MEDS: Metoprolol Tartrate 50 MG Tablet PO ×2 (08:28→21:50)
[2023-07-05] MEDS: APIXABAN 2.5 MG TABLET (WCH) PO ×2 (08:29→21:50)
[2023-07-05] MEDS: Ascorbic Acid 500 MG Tablet PO (08:29)
[2023-07-05] MEDS: Iron Polysaccharide Complex 150 MG CAPSULE PO (08:29)
[2023-07-05] MEDS: Fluticasone/Salmeterol 232-14 Inhaler 1 PUFF INHALATION ×2 (08:29→21:49)
[2023-07-05] MEDS: Nystatin Powder 15gm Bottle 1 APPLIC TOPICAL ×2 (08:30→21:53)
--- NOTE | 2023-07-05 12:29 | CASEMGMT ---
Social Work BIMS () and PHQ-2 () completed for MDS assessment. aCrol Caraballo MSW FRUIT AND VEGETABLE CLASSER
--- NOTE | 2023-07-05 14:11 | MDS.RN ---
Pain interview for MDS completed.
[2023-07-05 18:35] VITALS: PULSE 55; RESP 16; O2SAT 97
[2023-07-05 21:50] VITALS: BP 127/62; PULSE 83
[2023-07-05] MEDS: Petrolatum 33% Tube 1 APPLIC TOPICAL (21:53)
[2023-07-06] MEDS: Sucralfate 1 GM Tablet PO ×2 (06:07→11:19)
[2023-07-06 06:11] LABS: Hemoglobin 11.1 g/dL (13.0-16.5)
[2023-07-06 06:12] VITALS: PULSE 66; RESP 14; O2SAT 97
[2023-07-06 07:52] VITALS: BP 157/74; PULSE 68; RESP 16; TEMP 36.2; O2SAT 94
[2023-07-06] MEDS: Ascorbic Acid 500 MG Tablet PO (07:54)
[2023-07-06] MEDS: Pantoprazole Sodium 40 MG Tablet PO (07:54)
[2023-07-06] MEDS: Iron Polysaccharide Complex 150 MG CAPSULE PO (07:54)
[2023-07-06] MEDS: Cholecalciferol (VIT D3) 25 MCG TABLET (1,000 UNITS) PO (07:54)
[2023-07-06] MEDS: Lisinopril 20 MG Tablet PO (07:54)
[2023-07-06] MEDS: Fluticasone/Salmeterol 232-14 Inhaler 1 PUFF INHALATION (07:54)
[2023-07-06] MEDS: APIXABAN 2.5 MG TABLET (WCH) PO (07:54)
[2023-07-06 07:55] VITALS: PULSE 68
[2023-07-06] MEDS: Nystatin Powder 15gm Bottle 1 APPLIC TOPICAL (07:55)
[2023-07-06] MEDS: hydroCHLOROthiazide 12.5mg 12.5 MG PO (07:55)
[2023-07-06] MEDS: Metoprolol Tartrate 50 MG Tablet PO (07:55)
== END 2023-07-06 11:00 | disposition home or self-care (01) | DRG 193 ==
PROVIDERS: Admitting Provider Family Medicine Geriatric Medicine; Referring Provider Family Medicine Geriatric Medicine; Visit Provider Family Medicine Geriatric Medicine
DX: J18.9 Pneumonia, unspecified organism (principal); K26.4 Chronic or unspecified duodenal ulcer with hemorrhage; J44.0 Chronic obstructive pulmonary disease with (acute) lower respiratory infection; E87.1 Hypo-osmolality and hyponatremia; J44.1 Chronic obstructive pulmonary disease with (acute) exacerbation; D50.9 Iron deficiency anemia, unspecified; F10.10 Alcohol abuse, uncomplicated; E55.9 Vitamin D deficiency, unspecified; E78.5 Hyperlipidemia, unspecified; I48.91 Unspecified atrial fibrillation; I10 Essential (primary) hypertension; F17.210 Nicotine dependence, cigarettes, uncomplicated; K57.90 Diverticulosis of intestine, part unspecified, without perforation or abscess without bleeding; K44.9 Diaphragmatic hernia without obstruction or gangrene; Z79.51 Long term (current) use of inhaled steroids; Z79.01 Long term (current) use of anticoagulants; Z79.899 Other long term (current) drug therapy; K25.9 Gastric ulcer, unspecified as acute or chronic, without hemorrhage or perforation; Z23 Encounter for immunization
CPT/HCPCS: 36415; 36430; 80048; 81001; 82274; 82306; 85014; 85018; 85025; 86850; 86900; 86901; 86920; 86922; 87086; 90480; 92526; 92610; 97110; 97116; 97162; 97166; 97530; 97535; 97802; G0008; J7040; P9016; 90662; 91322; A4216; J1940

== ENCOUNTER 2023-06-26 08:21 | Outpatient (CLI) | payer MEDICARE, SELFPAY ==
[2023-06-26 08:26] VITALS: BP 132/73; PULSE 86; RESP 18; TEMP 36; O2SAT 100
[2023-06-26 09:08] VITALS: BP 128/67; PULSE 86; RESP 16; TEMP 36.1; O2SAT 100
[2023-06-26] MEDS: 0.9% NaCl Peripheral Flush Adult/Peds IV ×2 (09:13→13:32)
[2023-06-26] MEDS: 0.9% Normal Saline (500mL Bag) 500 ML 15 ML IV (09:13)
[2023-06-26 10:16] VITALS: BP 124/56; PULSE 84; RESP 16; TEMP 35.8; O2SAT 100
[2023-06-26] MEDS: Furosemide 20 MG/2 ML VIAL IV (10:58)
[2023-06-26 11:31] VITALS: BP 142/84; PULSE 74; RESP 16; TEMP 35.7; O2SAT 98
[2023-06-26 12:34] VITALS: BP 138/69; PULSE 88; RESP 16; TEMP 35.8; O2SAT 100
[2023-06-26 13:26] VITALS: BP 137/68; PULSE 91; RESP 16; TEMP 35.9; O2SAT 93
== END 2023-06-26 08:22 | disposition home or self-care (01) ==
LOC: MEDOUTP 08:21
PROVIDERS: Referring Provider Family Medicine Geriatric Medicine; Visit Provider Family Medicine Geriatric Medicine
DX: D64.9 Anemia, unspecified (principal)
CPT/HCPCS: 36415; 36430; 86850; 86900; 86901; 86920; 86922; J7040; P9016; A4216; J1940

== ENCOUNTER 2023-06-27 10:27 | Day surgery (SDC) | payer MEDICARE, SELFPAY ==
--- NOTE | 2023-06-27 | EGD_PTH ---
PATHOLOGY RESULTS PATIENT: MARK MUÑIZ LOC: EN U#:[id number] AGE/SX: 73/M ROOM: RE06/27/[address]: Dr. Jayesh Gómez DO : 1950 BED: DIS: 06/27/2023 SPEC #: [id number] RECD: 06/27/23 13:48 STATUS: URIEL REGuerrero #: [id number] SHANNAN: 06/27/23 00:[address]: Jayesh Gómez DEPT: SURGICAL PATHOLOGY RECD BY: Rajeev Fletcher ENTERED: 06/28/23 09:01 SP TYPE: EGD BIOPSY OT DR: [facility] Tissues: Duodenum, NOS Procedures: Surgery Specimen Level IV HEADER OPERATION: EGD with biopsies PRE-OP DIAGNOSIS: Anemia TISSUE SUBMITTED: Duodenal ulcer biopsy MICROSCOPIC DIAGNOSIS Duodenal ulcer, biopsy: Fragments of duodenal mucosa with focal ulceration, acute and chronic inflammation and granulation tissue reaction. NICOLE:lorena 06/29/2023 MICROSCOPIC DESCRIPTION Slides are reviewed. GROSS DESCRIPTION Received in fixative is one container labeled with the patient's name and designated duodenal ulcer biopsy. The specimen consists of multiple irregular fragments of light mejia soft tissue that in aggregate measure 1.0 x 0.5 x 0.1 cm. The specimen is totally submitted in one cassette. / SJ:rg 06/28/2023 TC:2 CPT: 73204
[2023-06-27 10:58] VITALS: BP 149/97; PULSE 70; RESP 16; TEMP 36.9; O2SAT 94; BMI 29.2
--- NOTE | 2023-06-27 11:00 | HP.PCM_ITS ---
History and Physical Date of Admission: 06/27/23 73 M who presents is currently in TCU and I was called to see him due to decreasing hemoglobin. He was recently admitted with unresponsiveness, short of breath, has been coughing up for last few days. In the ED he was found to be in acute exacerbation of COPD and metabolic encephalopathy due to pseudonarcotics and was intubated and put on ventilator. He was diagnosed with acute on chronic hypercapnic respiratory failure secondary to COPD exacerbation. He was able to be extubated and is currently on 2 L, he may need oxygen set up at his home at the time of discharge, patient does have [employer] insurance. Infectious workup including blood cultures x 2, urine culture, respiratory panel, SARS-CoV-2, influenza and RSV PCR are negative. I saw him for iron deficiency anemia-he underwent an upper and lower endoscopy and was discovered to have large duodenal ulcers and gastric ulcers. His colonoscopy did not reveal any abnormality. Currently I am seeing him today due to decreasing hemoglobin to 7. Is been slowly drifting down. He does not know if he has had black tarry stools. He does have a history of atrial fibrillation and is on Eliquis 2.5 mg p.o. twice daily plus vitamin C and prednisone. [facility] Medical History (Updated 06/19/23 @ 19:[address] Yoshi Latif MD) Acute anemia Acute kidney injury Alcohol abuse COPD exacerbation Debility Duodenal ulcer Hyperlipidemia, unspecified Hypertension Tobacco abuse Upper gastrointestinal bleeding Home Medications cholecalciferol (vitamin D3) 25 mcg (1,000 unit) capsule (Vitamin D3) 25 mcg PO DAILY supplement 06/12/23 [History Last Taken 06/19/23] hydrochlorothiazide 12.5 mg tablet 12.5 mg PO DAILY fluid retention 06/12/23 [History Last Taken 06/19/23] metoprolol tartrate 50 mg tablet (Lopressor) 50 mg PO BID BP 06/12/23 [History Last Taken 06/19/23] apixaban 2.5 mg tablet (Eliquis) 2.5 mg PO BID Blood thinner 1 month #60 tabs 06/19/23 [Rx Last Taken Unknown] ascorbate calcium (vitamin C) 500 mg tablet 500 mg PO BID supplement 1 month #60 tabs 06/19/23 [Rx Last Taken Unknown] ferrous sulfate 325 mg (65 mg iron) tablet (FeroSul) 325 mg PO DAILY supplement #30 tabs 06/19/23 [Rx Last Taken Unknown] fluticasone 250 mcg-salmeterol 50 mcg/dose blistr powdr for inhalation (Advair Diskus) 1 inh inhalation BID Breathing 1 month #60 ea 06/19/23 [Rx Last Taken Unknown] lisinopril 20 mg tablet 20 mg PO DAILY BP #0 tabs 06/19/23 [Rx Last Taken 06/19/23] pantoprazole 40 mg tablet,delayed release (Protonix) 40 mg PO BID GI 12 weeks #168 tabs 06/19/23 [Rx Last Taken Unknown] prednisone 20 mg tablet 20 mg PO DAILY steroid 5 days #5 tabs 06/19/23 [Rx Last Taken Unknown] sucralfate 1 gram tablet (Carafate) 1 g PO TID stomach 4 weeks #84 tabs 06/19/23 [Rx Last Taken Unknown] Allergy/AdvReac Type Severity Reaction Status Date / Time No Known Allergies Allergy Verified 06/26/23 08:31 Social History (Updated 06/19/23 @ 19:[address] Yoshi Latif MD) household members: spouse Smoking Status: Current every day smoker tobacco type: cigarettes alcohol intake: current alcohol intake frequency: 0-2 drinks per day Alcohol type: beer substance use type: does not use ROS Constitutional Constitutional: Reports weakness; Denies chills, fever(s) or weight gain ENT HEENT: Denies headache(s), nasal congestion or nasal discharge Cardiovascular Cardiovascular: Denies chest pain or palpitations Respiratory/Chest Respiratory/Chest: Denies cough, excessive phlegm production or shortness of breath with exertion Gastrointestinal Gastrointestinal: Denies abdominal pain, nausea or vomiting Genitourinary Genitourinary: Denies dysuria Musculoskeletal Musculoskeletal: Denies joint pain or joint swelling Integumentary Integumentary: Denies rash or wounds Neurologic Neurologic: Denies focal weakness, numbness or tingling Psychiatric Psychiatric: Denies anxiety, auditory hallucinations, depression, homicidal ideation or suicidal ideation Physical Exam Const alert General Appearance: cooperative HEENT normocephalic Eyes PERRL and EOMs intact bilaterally Neck supple, no JVD and no carotid bruits Resp normal respiratory effort, normal air movement and clear to auscultation bilaterally Auscultation: rhonchi lower bilaterally Cardio regular rate and regular rhythm GI normal to inspection, nondistended, normoactive bowel sounds, non-tender and non-distended Extremity normal capillary refill General Extremity: Negative for edema Skin no rashes or lesions noted General Skin Exam: no breakdown Psych affect normal Appearance: appropriate Lab / Micro Data 06/25/23 05:17 06/20/23 05:28 Labs: Laboratory Results - last 24 hr 06/25/23 10:55: Blood Type Cancelled, Antibody Screen Cancelled, Crossmatch See Detail Micro: Microbiology 06/25/23 18:45 Stool Stool Occult Blood (ENEIDA) - Final Occult Blood Positive Assessment & Plan Assessment/Plan (1) Anemia: QUALIFIERS: Anemia type: unspecified type Qualified Code(s): D64.9 - Anemia, unspecified PLAN: 73-year-old gentleman with COPD, hyponatremia status post acute hypoxic respiratory failure needing intubation. Patient was discovered to have a significant iron deficiency anemia. Patient is a patient's agreed to undergo repeat upper endoscopy for evaluation of his anemia. Patient and patient's were explained alternatives, risk, benefits include not withstanding bleeding, infection, sepsis, perforation, need for emergent urgent . He will have an ASA of 3. N.p.o. past midnight I have examined the patient and the H&P has been reviewed. There are no clinical changes since date of exam. Patient is a
[2023-06-27] MEDS: Lactated Ringers 1,000 ML 15 ML IV (11:07)
[2023-06-27 11:55] VITALS: BP 102/72; BP 149/97; PULSE 90; RESP 16; TEMP 36.6; O2SAT 98
[2023-06-27 12:00] VITALS: BP 110/70; BP 149/97; PULSE 98; RESP 16; O2SAT 100
--- NOTE | 2023-06-27 12:03 | OP.EGD_ITS ---
Patient Name: Mark Triana Procedure Date: 06/27/2023 11:33 AM Date of : 1950 Age: 73 Procedure: Upper GI endoscopy Indications: Iron deficiency anemia Providers: Jayesh Gómez DO Medicines: Monitored Anesthesia Care Patient Profile: This is a 73 year old male. Refer to note in patient chart for documentation of history and physical. Patient has symptoms of acute epigastric abdominal pain. Complications: No immediate complications. Procedure: Pre-Anesthesia Assessment: - Prior to the procedure, a History and Physical was performed, and patient medications and allergies were reviewed. The patient is competent. The risks and benefits of the procedure and the sedation options and risks were discussed with the patient. All questions were answered and informed consent was obtained. Patient identification and proposed procedure were verified by the physician in the pre-procedure area. Mental Status Examination: alert and oriented. Airway Examination: normal oropharyngeal airway and neck mobility. Respiratory Examination: clear to auscultation. CV Examination: normal. Prophylactic Antibiotics: The patient does not require prophylactic antibiotics. Prior Anticoagulants: The patient has taken no anticoagulant or antiplatelet agents. ASA Grade Assessment: III - A patient with severe systemic disease. After reviewing the risks and benefits, the patient was deemed in satisfactory condition to undergo the procedure. The anesthesia plan was to use monitored anesthesia care (MAC). Immediately prior to administration of medications, the patient was re-assessed for adequacy to receive sedatives. The heart rate, respiratory rate, oxygen saturations, blood pressure, adequacy of pulmonary ventilation, and response to care were monitored throughout the procedure. The physical status of the patient was re-assessed after the procedure. After obtaining informed consent, the endoscope was passed under direct vision. Throughout the procedure, the patient's blood pressure, pulse, and oxygen saturations were monitored continuously. The Endoscope was introduced through the mouth, and advanced to the second part of duodenum. The upper GI endoscopy was accomplished without difficulty. The patient tolerated the procedure well. Scope In: 11:42:35 AM Scope Out: 11:48:07 AM Total Procedure Duration Time 0 hours 5 minutes 32 seconds Findings: The examined esophagus was normal. A hiatal hernia was present. Two non-bleeding cratered duodenal ulcers with no stigmata of bleeding were found in the duodenal bulb. The largest lesion was 10 mm in largest dimension. Biopsies were taken with a cold forceps for histology. Verification of patient identification for the specimen was done. Estimated blood loss was minimal. Two oozing linear duodenal ulcers with pigmented material were found in the first portion of the duodenum. The largest lesion was 4 mm in largest dimension. Coagulation for hemostasis using heater probe was successful. Estimated blood loss was minimal. Impression: - Normal esophagus. - Hiatal hernia. - Non-bleeding duodenal ulcers with no stigmata of bleeding. Biopsied. - Oozing duodenal ulcers with pigmented material. Treated with a heater probe. Recommendation: - Return patient to referring hospital for ongoing care. - Resume previous diet. - Use Protonix (pantoprazole) 40 mg PO BID for 12 weeks. - No aspirin, ibuprofen, naproxen, or other non-steroidal anti-inflammatory drugs for 2 weeks. Procedure Code(s): --- Professional --- 89846, 59, Esophagogastroduodenoscopy, flexible, transoral; with control of bleeding, any method 85899, 51, Esophagogastroduodenoscopy, flexible, transoral; with biopsy, single or multiple CPT copyright 2021 [employer]. All rights reserved. The codes documented in this report are preliminary and upon powerhouse attendant review may be revised to meet current compliance requirements. Jayesh Gómez DO 06/27/2023 12:02:45 PM This report has been signed electronically. Number of Addenda: 0 Note Initiated On: 06/27/2023 11:33 AM
--- NOTE | 2023-06-27 12:03 | OP.CCLET_ITS ---
06/27/2023 [facility] Re : Upper GI endoscopy procedure for [facility] This procedure was performed on Tuesday, June 27, 2023. My impressions and recommendations are as follows: Impressions : - Normal esophagus. - Hiatal hernia. - Non-bleeding duodenal ulcers with no stigmata of bleeding. Biopsied. - Oozing duodenal ulcers with pigmented material. Treated with a heater probe. Recommendations : - Return patient to referring hospital for ongoing care. - Resume previous diet. - Use Protonix (pantoprazole) 40 mg PO BID for 12 weeks. - No aspirin, ibuprofen, naproxen, or other non-steroidal anti-inflammatory drugs for 2 weeks. My findings are described in the full procedure note, which is enclosed. If I can be of further assistance, please feel free to contact me at . Sincerely, Jayesh Gómez, 06/27/2023 12:02:45 PM This report has been signed electronically.
[2023-06-27 12:05] VITALS: BP 113/65; BP 149/97; PULSE 85; RESP 16; O2SAT 100
[2023-06-27 12:10] VITALS: BP 134/81; BP 149/97; PULSE 85; RESP 16; TEMP 36.8; O2SAT 97
--- NOTE | 2023-06-27 12:36 | SUR.PHASEII ---
REPORT CALLED TO [facility].
== END 2023-06-27 12:46 | disposition home or self-care (01) ==
LOC: EN 10:40 → AC 10:41
PROVIDERS: Visit Provider Internal Medicine Gastroenterology
PROC: 0DJ08ZZ Inspection of Upper Intestinal Tract, Via Natural or Artificial Opening Endoscopic (ICD-10-PCS; CPT 43235; principal; 2023-06-27 11:30)
DX: K29.80 Duodenitis without bleeding (principal); J44.9 Chronic obstructive pulmonary disease, unspecified; I48.91 Unspecified atrial fibrillation; K44.9 Diaphragmatic hernia without obstruction or gangrene; F17.210 Nicotine dependence, cigarettes, uncomplicated; I10 Essential (primary) hypertension; K26.9 Duodenal ulcer, unspecified as acute or chronic, without hemorrhage or perforation; Z79.01 Long term (current) use of anticoagulants; E78.5 Hyperlipidemia, unspecified; Z79.51 Long term (current) use of inhaled steroids; E87.1 Hypo-osmolality and hyponatremia; Z79.899 Other long term (current) drug therapy; D50.9 Iron deficiency anemia, unspecified; K26.4 Chronic or unspecified duodenal ulcer with hemorrhage
CPT/HCPCS: 43255; 43239; 88305; J7120

== ENCOUNTER → 2023-07-27 | Outpatient (CLI) | payer OTHER, SELFPAY ==
--- NOTE | 2023-07-27 16:30 | CT_ITS ---
EXAM: CT CHEST, LUNG CANCER SCREENING WITHOUT INTRAVENOUS CONTRAST CLINICAL INDICATION: LUNG CA SCREENING TECHNIQUE: Helically acquired images were obtained of the chest without intravenous contrast using low dose (LDCT) lung cancer screening protocol. This CT exam was performed using one or more of the following dose reduction techniques: automated exposure control, adjustment of the mA and/or kV according to patient size, and/or use of iterative reconstruction technique. COMPARISON: CT chest 06/12/2023 FINDINGS: LUNGS AND PLEURAL SPACES: 7 mm left upper lobe pulmonary nodule noted on image 105 of sequence 2 unchanged from prior study. Pleural-based millimeter nodule within the left upper lobe on image 64 sequence 2. Resolution of small right pleural effusion and bibasilar atelectasis. No pneumothorax. HEART: Normal. Heart size is normal. No pericardial effusion. No significant coronary artery calcifications. MEDIASTINUM: Normal. No mediastinal or hilar adenopathy. Esophagus is unremarkable. No hiatal hernia. THYROID: Normal. No thyroid nodules or calcification. BONES/JOINTS: No suspicious lytic or blastic abnormality. VASCULATURE: Stable 4.2 cm ectasia of the ascending thoracic aorta. LYMPH NODES: Normal. No enlarged lymph nodes. CT/Low Dose CT Lung Screening IMPRESSION: 7 mm left upper lobe pulmonary nodule, unchanged from prior study. Lung-RADS score: 3 - Probably Benign. Recommend low-dose CT (LDCT) in 6 months. Electronically Signed: Edy Swann MD at 17:05 EDT Reading Location ID and State: [facility] / [place] Tel , Service support ,
== END | disposition home or self-care (01) ==
LOC: CT 16:29
DX: Z12.2 Encounter for screening for malignant neoplasm of respiratory organs (principal); Z87.891 Personal history of nicotine dependence
CPT/HCPCS: 71271

== ENCOUNTER → 2023-08-08 | Outpatient (CLI) | payer OTHER, SELFPAY ==
--- NOTE | 2023-08-08 14:43 | ECHOD_ITS ---
Reason For Study: ATRIAL FIBRILLATION Procedure This was a 2D Doppler, Color Flow transthoracic echocardiogram. The study was technically difficult. Exam performed in department. Left Ventricle Normal LV size. The estimated ejection fraction is 55 %. No evidence for diastolic dysfunction. No regional wall motion abnormalities noted. Right Ventricle Normal RV size. Normal systolic function. Atria Normal left atrium. Normal right atrium. No doppler evidence for ASD. Mitral Valve There is no mitral valve stenosis. Trivial mitral valve insufficiency. Tricuspid Valve There is no tricuspid stenosis. Trivial tricuspid valve insufficiency. Unable to estimate RV systolic pressure due to insufficient tricuspid regurgitant envelope. Aortic Valve Trisinus/trileaflet aortic valve. There is no aortic stenosis. No aortic valve insufficiency. Pulmonic Valve There is no pulmonic valvular stenosis. No pulmonic valve insufficiency. Great Vessels Normal aortic root. Pericardium/Pleural No pericardial effusion. MMode/2D Measurements & Calculations LVIDd: 5.2 cm IVSd: 1.2 cm LVOT diam: 2.1 cm LVIDs: 3.0 cm LVPWd: 1.3 cm LVOT area: 3.6 cm2 RVDd: 4.1 cm FS: 42.2 % Ao root diam: 3.7 cm LAV(MOD-bp): 79.6 ml LVAd ap4: 33.1 cm2 LAV(MOD-bp) Indexed: 38.7 ml/m2 LVLd ap4: 8.1 cm LAV(MOD-sp2): 97.6 ml EDV(MOD-sp4): 109.5 ml LAV(MOD-sp4): 57.6 ml EDV(sp4-el): 114.3 ml LVAs ap4: 19.3 cm2 LVLs ap4: 6.8 cm ESV(MOD-sp4): 46.5 ml ESV(sp4-el): 46.7 ml EF(MOD-sp4): 57.5 % EF(sp4-el): 59.1 % LVAd ap2: 29.2 cm2 SV(MOD-sp4): 63.0 ml SV(MOD-sp2): 53.6 ml LVLd ap2: 7.7 cm EDV(MOD-sp2): 92.5 ml EDV(sp2-el): 93.7 ml LVAs ap2: 17.1 cm2 LVLs ap2: 6.3 cm ESV(MOD-sp2): 38.8 ml ESV(sp2-el): 39.4 ml EF(MOD-sp2): 58.0 % SV(sp4-el): 67.6 ml LA dimension(2D): 4.2 cm LA A4 area: 20.9 cm2 RA A4 area: 20.9 cm2 TAPSE: 2.5 cm Time Measurements MV dec time: 0.21 sec Doppler Measurements & Calculations MV E max ajay: 92.0 cm/sec Lat Peak E' Ajay: 12.2 cm/sec Med Peak E' Ajay: 8.6 cm/sec MV A max ajay: 93.9 cm/sec E/E' lat: 7.5 E/E' med: 10.7 MV E/A: 0.98 Ao V2 max: 147.0 cm/sec LV V1 max: 114.7 cm/sec MV dec slope: 439.6 cm/sec2 Ao max P.6 mmHg LV V1 max P.3 mmHg Ao V2 mean: 99.2 cm/sec LV V1 mean P.8 mmHg Ao mean P.5 mmHg LV V1 mean: 79.1 cm/sec Ao V2 VTI: 39.9 cm LV V1 VTI: 32.1 cm AV (velocity ratio): 0.80 DELON(I,D): 2.9 cm2 DELON(V,D): 2.8 cm2 SV(LVOT): 114.3 ml PA V2 max: 89.7 cm/sec TR max ajay: 250.8 cm/sec PA max PG (full): 1.5 mmHg TR max P.2 mmHg ECHO/Echo Complete Interpretation Summary The estimated ejection fraction is 55 %. No evidence for diastolic dysfunction. Trivial mitral valve insufficiency. Ordering Physician: [facility], [place] Referring Physician: [place] [place] Performed By: Ritu Cespedes RDCS
== END | disposition home or self-care (01) ==
LOC: CVS 14:37
DX: I48.0 Paroxysmal atrial fibrillation (principal)
CPT/HCPCS: 93306

== ENCOUNTER → 2024-01-29 | Outpatient (CLI) | payer OTHER, SELFPAY ==
--- NOTE | 2024-01-29 12:40 | CT_ITS ---
HISTORY: LUNG NODULE. TECHNIQUE: Helically acquired images were obtained of the chest without contrast. A radiation dose optimization technique was used for this scan. 906 images. COMPARISON: 07/27/2023 and 06/12/2023. FINDINGS: LARGE AIRWAYS: Patent. LUNGS: Mild hyperinflation with mild biapical scarring and stable small pleural-based upper lobe nodules. Unchanged 6 mm left upper lobe nodule image 57/142. No new suspicious nodule or acute alveolar consolidation. PLEURA: No pneumothorax or significant pleural effusion. HEART/PERICARDIUM: Heart within normal limits in size with coronary artery calcification. No pericardial effusion. VESSELS: Unchanged 4.4 cm mild dilatation of the ascending aorta. Atherosclerosis noted. MEDIASTINUM/VIANEY: No pathologically enlarged adenopathy. UPPER ABDOMEN: Unremarkable. BONES: Mild degenerative change. CT/Chest without Contrast IMPRESSION: No significant interval change. Lung-RADS category 2: Continue annual screening with low dose CT. Electronically Signed: Nisreen Aldridge MD at 8:22 EDT ,
== END | disposition home or self-care (01) ==
LOC: CT 12:34
PROVIDERS: Referring Provider Family Medicine; Visit Provider Family Medicine
DX: R91.1 Solitary pulmonary nodule (principal)
CPT/HCPCS: 71250

== ENCOUNTER 2024-04-15 11:34 | Day surgery (SDC) | payer OTHER, SELFPAY ==
--- NOTE | 2024-04-11 14:47 | PAT.ANESEVAL ---
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 When Was Last Pacemaker Check QUESTION #4 FULL TEXT: You/Your Family Experience fever (hyperthermia) with Anesthesia Last Oral Intake Last Oral intake: Last Oral Intake NPO since Meds taken in AM with sips of water? Meds patient instructed to take am of surgery PONV PONV - automobile accessories installer: PONV - automobile accessories installer Female No 04/11/24 11:34 HX of Motion Sickness No 04/11/24 11:34 HX of N/V After Surgery No 04/11/24 11:34 Non-Smoker Yes 04/11/24 11:34 Duration of Surgery greater No 04/11/24 11:34 than 60 minutes Number of Risk Factors 1 04/11/24 11:34 PONV Score Low Risk 04/11/24 11:34 Height & Weight Height & Weight: Anesthesia: Height & Weight Height 5 ft 10 in 06/27/23 11:44 Respiratory Assessment Respiratory Assessment - automobile accessories installer: Respiratory Tract Infection Hx - automobile accessories installer Hx Respiratory Tract Infection No 04/11/24 11:34 STOP Sleep Apnea STOP Sleep Apnea - automobile accessories installer: STOP Sleep Apnea - automobile accessories installer Hx Hypertension Yes: CONTROLLED ON MED 04/11/24 11:34 Hx Sleep Apnea No 04/11/24 11:34 CPAP BIPAP Do you snore loudly (louder No 04/11/24 11:34 than talking or can be heard Do you often feel tired/ No 04/11/24 11:34 fatigued/ sleepy during daytime? Has anyone observed you stop No 04/11/24 11:34 breathing during sleep? STOP Results Negative 04/11/24 11:34 QUESTION #5 FULL TEXT : Do you snore loudly (louder than talking or can be heard through closed doors)? 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 Specify any problems Hx of Preganancy in last 3 N/A 04/11/24 11:34 Months Nurse Filling Out Transfusion VCHRISTIN 04/11/24 11:34 & Questions: Date: 04/11/24 04/11/24 11:34 Time: 11:35 04/11/24 11:34 Patient unable to answer at this time (ie. confused, unrespo /Reproduction History /Reproductive History - automobile accessories installer: /Reproductive Hx- automobile accessories installer Hx Now No 04/11/24 11:34 Gestational Age (in weeks): EDC: Hx Hx Para Hx Section SAB No 04/11/24 11:34 [facility] Medical History (Updated 04/11/24 @ 11:34 by Ciarra Logan) Wears glasses Alcohol use Back pain History of ulceration Former smoker Shortness of breath on exertion COPD (chronic obstructive pulmonary disease) Leg cramps History of echocardiogram History of stress test Cardiology follow-up encounter History of atrial fibrillation Alcohol abuse Tobacco abuse Hyperlipidemia, unspecified Hypertension Duodenal ulcer Upper gastrointestinal bleeding Acute anemia Acute kidney injury COPD exacerbation Debility Home Medications ?Medication ?Instructions ?Recorded ?Last Taken ?Type metoprolol tartrate 50 mg tablet 25 mg PO BID BP 06/12/23 06/19/23 History (Lopressor) lisinopril 20 mg tablet 20 mg PO DAILY BP #0 tabs 06/19/23 06/19/23 Rx apixaban 5 mg tablet (Eliquis) 2.5 mg (1/2 x 5 mg) PO BID 30 days 07/03/23 Unknown Rx #30 tabs ascorbic acid (vitamin C) 500 mg 500 mg PO 1000 30 days #30 tabs 07/03/23 Unknown Rx tablet cholecalciferol (vitamin D3) 25 25 mcg PO DAILY 30 days #30 tabs 07/03/23 Unknown Rx mcg (1,000 unit) tablet pantoprazole 40 mg tablet,delayed 40 mg PO BID 30 days #60 tabs 07/03/23 Unknown Rx release albuterol 90 mcg-budesonide 80 2 inh inhalation DAILY PRN 04/11/24 Unknown History mcg/actuation HFA aerosol inhaler shortness of breath budesonide 160 mcg-glycopyr 9 2 inh inhalation BID 04/11/24 Unknown History mcg-formot 4.8 mcg/actuation HFA inhaler (Breztri Aerosphere) ferrous sulfate 325 mg (65 mg 325 mg PO DAILY 04/11/24 Unknown History iron) tablet (FeroSul) Allergy/AdvReac Type Severity Reaction Status Date / Time No Known Allergies Allergy Verified 04/11/24 11:16 Surgical History (Updated 04/11/24 @ 11:34 by Ciarra Logan) Hx of bilateral cataract extraction History of esophagogastroduodenoscopy (EGD) Social History (Updated 06/19/23 @ 19:[address] Yoshi Latif MD) household members: spouse Smoking Status: Current every day smoker tobacco type: cigarettes alcohol intake: current alcohol intake frequency: 0-2 drinks per day Alcohol type: beer substance use type: does not use Audit: Pertinent Findings Pertinent Findings EKG Perinent findings: AFIB, 87 bpm 06/15/23 Echo (EF%) pertinent findings: EF 55, ess neg 07/2023 Recommendation Anesthesia Recommendation Anesthesia recommendation: OPTIMIZED for anesthesia
[2024-04-15 12:22] VITALS: BP 118/77; PULSE 65; RESP 16; TEMP 36.4; O2SAT 100; BMI 29.8
[2024-04-15 12:37] VITALS: BP 118/77; PULSE 65; RESP 160; TEMP 36.4; O2SAT 100
--- NOTE | 2024-04-15 12:37 | PCM.PRE.AN2 ---
ASA Classification* ASA Classification ASA Classification: 3 Assessment & Plan Anesthesia* Anesthesia Assessment Anesthesia Assessment: Discussed sedation and/or anesthesia options, risks, benefits, and alternatives with patient/parents/legal guardian/POA. Questions invited. The patient/parents/legal guardian/POA seems to understand and agrees to proceed with anesthesia plan. Reviewed the physical assessment, medical history, allergy history and patient home medications list prior to surgery/procedure/anesthetic and documented any changes. Performed airway and anesthesia risk assessments. Anesthesia Type Anesthesia Type: MAC Anesthesia Focused Assessment* Temperature: 97.5 F Pulse Rate: 65 Blood Pressure: 118/77 Respiratory Rate: 160 Pulse Ox: 100 Airway Assessment Mouth opens: >3 cm Mallampati Score: II Focused Labs Anesthesia Preop lab: CBC WBC 4.2 K/mm3 (4.4-11.0) L 07/04/23 05:19 RBC 3.61 M/mm3 (4.6-6.2) L 07/04/23 05:19 Hgb 11.1 g/dL (13.0-16.5) L 07/06/23 05:46 Hct 37.0 % (40-54) L 07/06/23 05:46 Plt Count 291 K/mm3 (150-450) 07/04/23 05:19 CHEMISTRY Potassium 4.2 mmol/L (3.5-5.1) 07/04/23 05:19 Sodium 136 mmol/L (136-145) 07/04/23 05:19 Magnesium 2.0 mg/dL (1.6-2.6) 06/13/23 03:40 Phosphorus 5.7 mg/dL (2.5-4.9) H 06/13/23 03:40 BUN 14 mg/dL (7-18) 07/04/23 05:19 Creatinine 0.74 mg/dL (0.70-1.30) 07/04/23 05:19 Glucose 94 mg/dL (74-106) 07/04/23 05:19 TSH 0.70 uIU/mL (0.358-3.74) 06/13/23 03:40 COAG PT 17.0 SECONDS (11.7-14.9) H 06/12/23 18:07 Pre-Assessment Diagnosis/Proposed Procedure Planned Operative Procedure(s): EGD Anesthesia History 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 When Was Last Pacemaker Check QUESTION #4 FULL TEXT: You/Your Family Experience fever (hyperthermia) with Anesthesia Last Oral Intake Last Oral intake: Last Oral Intake NPO since 18:00 04/15/24 12:22 Meds taken in AM with sips of Yes 04/15/24 12:22 water? Meds patient instructed to metoprolol 04/15/24 12:22 take am of surgery PONV PONV - e commerce specialist: PONV - e commerce specialist Female No 04/11/24 11:34 HX of Motion Sickness No 04/11/24 11:34 HX of N/V After Surgery No 04/11/24 11:34 Non-Smoker Yes 04/11/24 11:34 Duration of Surgery greater No 04/11/24 11:34 than 60 minutes Number of Risk Factors 1 04/11/24 11:34 PONV Score Low Risk 04/11/24 11:34 Height & Weight Height & Weight: Anesthesia: Height & Weight Height 5 ft 11 in 04/15/24 12:22 Weight: 97 kg 04/15/24 12:22 Body Mass Index (BMI) 29.8 04/15/24 12:22 Respiratory Assessment Respiratory Assessment - e commerce specialist: Respiratory Tract Infection Hx - e commerce specialist Hx Respiratory Tract Infection No 04/11/24 11:34 STOP Sleep Apnea STOP Sleep Apnea - e commerce specialist: STOP Sleep Apnea - e commerce specialist Hx Hypertension Yes: CONTROLLED ON MED 04/11/24 11:34 Hx Sleep Apnea No 04/11/24 11:34 CPAP BIPAP Do you snore loudly (louder No 04/11/24 11:34 than talking or can be heard Do you often feel tired/ No 04/11/24 11:34 fatigued/ sleepy during daytime? Has anyone observed you stop No 04/11/24 11:34 breathing during sleep? STOP Results Negative 04/11/24 11:34 QUESTION #5 FULL TEXT : Do you snore loudly (louder than talking or can be heard through closed doors)? 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 Specify any problems Hx of Preganancy in last 3 N/A 04/11/24 11:34 Months Nurse Filling Out Transfusion VCHRISTIN 04/11/24 11:34 & Questions: Date: 04/11/24 04/11/24 11:34 Time: 11:35 04/11/24 11:34 Patient unable to answer at this time (ie. confused, unrespo /Reproduction History /Reproductive History - e commerce specialist: /Reproductive Hx- e commerce specialist Hx Now No 04/11/24 11:34 Gestational Age (in weeks): EDC: Hx Hx Para Hx Section SAB No 04/11/24 11:34 PFSH Medical History Wears glasses Alcohol use Back pain History of ulceration Former smoker Shortness of breath on exertion COPD (chronic obstructive pulmonary disease) Leg cramps History of echocardiogram History of stress test Cardiology follow-up encounter History of atrial fibrillation Alcohol abuse Tobacco abuse Hyperlipidemia, unspecified Hypertension Duodenal ulcer Upper gastrointestinal bleeding Acute anemia Acute kidney injury COPD exacerbation Debility Home Medications ?Medication ?Instructions ?Recorded ?Last Taken ?Type metoprolol tartrate 50 mg tablet 25 mg PO BID BP 06/12/23 04/15/24 History (Lopressor) lisinopril 20 mg tablet 20 mg PO DAILY BP #0 tabs 06/19/23 04/14/24 Rx apixaban 5 mg tablet (Eliquis) 2.5 mg (1/2 x 5 mg) PO BID 30 days 07/03/23 04/12/24 Rx #30 tabs ascorbic acid (vitamin C) 500 mg 500 mg PO 1000 30 days #30 tabs 07/03/23 04/14/24 Rx tablet cholecalciferol (vitamin D3) 25 25 mcg PO DAILY 30 days #30 tabs 07/03/23 04/14/24 Rx mcg (1,000 unit) tablet pantoprazole 40 mg tablet,delayed 40 mg PO BID 30 days #60 tabs 07/03/23 04/14/24 Rx release albuterol 90 mcg-budesonide 80 2 inh inhalation DAILY PRN 04/11/24 Unknown History mcg/actuation HFA aerosol inhaler shortness of breath budesonide 160 mcg-glycopyr 9 2 inh inhalation BID 04/11/24 04/15/24 History mcg-formot 4.8 mcg/actuation HFA inhaler (Breztri Aerosphere) ferrous sulfate 325 mg (65 mg 325 mg PO DAILY 04/11/24 04/14/24 History iron) tablet (FeroSul) Allergy/AdvReac Type Severity Reaction Status Date / Time No Known Allergies Allergy Verified 04/15/24 12:19 Surgical History Hx of bilateral cataract extraction History of esophagogastroduodenoscopy (EGD) Social History household members: spouse Smoking Status: Current every day smoker tobacco type: cigarettes alcohol intake: current alcohol intake frequency: 0-2 drinks per day Alcohol type: beer substance use type: does not use Review of Systems (Anesthesia) ROS Narrative System reviewed and no additional complaints, except as documented.
--- NOTE | 2024-04-15 12:47 | HP.PCM_ITS ---
HPI - General General Date of Admission: 04/15/24 Date of Service: 04/15/24 Chief Complaint: Anemia HPI Narrative MARK MUÑIZ, is a 74 who I saw in TCU due to decreasing hemoglobin. He was recently admitted with unresponsiveness, short of breath, has been coughing up for last few days. In the ED he was found to be in acute exacerbation of COPD and metabolic encephalopathy due to pseudonarcotics and was intubated and put on ventilator. He was diagnosed with acute on chronic hypercapnic respiratory failure secondary to COPD exacerbation. He was able to be extubated and was currently on 2 L., Infectious workup including blood cultures x 2, urine culture, respiratory panel, SARS-CoV-2, influenza and RSV PCR are negative. I saw him for iron deficiency anemia-he underwent an upper and lower endoscopy and was discovered to have large duodenal ulcers and gastric ulcers. His colonoscopy did not reveal any abnormality. Currently I am seeing him today due to decreasing hemoglobin to 7. Is been slowly drifting down. He does not know if he has had black tarry stools. He does have a history of atrial fibrillation and is on Eliquis 2.5 mg p.o. twice daily plus vitamin C and prednisone. [facility] Medical History Wears glasses Alcohol use Back pain History of ulceration Former smoker Shortness of breath on exertion COPD (chronic obstructive pulmonary disease) Leg cramps History of echocardiogram History of stress test Cardiology follow-up encounter History of atrial fibrillation Alcohol abuse Tobacco abuse Hyperlipidemia, unspecified Hypertension Duodenal ulcer Upper gastrointestinal bleeding Acute anemia Acute kidney injury COPD exacerbation Debility Home Medications ?Medication ?Instructions ?Recorded ?Last Taken ?Type metoprolol tartrate 50 mg tablet 25 mg PO BID BP 06/12/23 04/15/24 History (Lopressor) lisinopril 20 mg tablet 20 mg PO DAILY BP #0 tabs 06/19/23 04/14/24 Rx apixaban 5 mg tablet (Eliquis) 2.5 mg (1/2 x 5 mg) PO BID 30 days 07/03/23 04/12/24 Rx #30 tabs ascorbic acid (vitamin C) 500 mg 500 mg PO 1000 30 days #30 tabs 07/03/23 04/14/24 Rx tablet cholecalciferol (vitamin D3) 25 25 mcg PO DAILY 30 days #30 tabs 07/03/23 04/14/24 Rx mcg (1,000 unit) tablet pantoprazole 40 mg tablet,delayed 40 mg PO BID 30 days #60 tabs 07/03/23 04/14/24 Rx release albuterol 90 mcg-budesonide 80 2 inh inhalation DAILY PRN 04/11/24 Unknown History mcg/actuation HFA aerosol inhaler shortness of breath budesonide 160 mcg-glycopyr 9 2 inh inhalation BID 04/11/24 04/15/24 History mcg-formot 4.8 mcg/actuation HFA inhaler (Breztri Aerosphere) ferrous sulfate 325 mg (65 mg 325 mg PO DAILY 04/11/24 04/14/24 History iron) tablet (FeroSul) Allergy/AdvReac Type Severity Reaction Status Date / Time No Known Allergies Allergy Verified 04/15/24 12:19 Surgical History Hx of bilateral cataract extraction History of esophagogastroduodenoscopy (EGD) Social History household members: spouse Smoking Status: Current every day smoker tobacco type: cigarettes alcohol intake: current alcohol intake frequency: 0-2 drinks per day Alcohol type: beer substance use type: does not use ROS Constitutional Constitutional: Reports weakness; Denies chills, fever(s) or weight gain ENT HEENT: Denies headache(s), nasal congestion or nasal discharge Cardiovascular Cardiovascular: Denies chest pain or palpitations Respiratory/Chest Respiratory/Chest: Denies cough, excessive phlegm production or shortness of yared ath with exertion Gastrointestinal Gastrointestinal: Denies abdominal pain, nausea or vomiting Genitourinary Genitourinary: Denies dysuria Musculoskeletal Musculoskeletal: Denies joint pain or joint swelling Integumentary Integumentary: Denies rash or wounds Neurologic Neurologic: Denies focal weakness, numbness or tingling Psychiatric Psychiatric: Denies anxiety, auditory hallucinations, depression, homicidal ideation or suicidal ideation Vital Signs Vital Signs Vital Signs: 04/15/24 12:22 04/15/24 12:22 04/15/24 12:37 Temperature 97.5 F L 97.5 F L Temperature Source Temporal Pulse Rate 65 65 Respiratory Rate 160 H 160 H Respiratory Pattern Normal Blood Pressure 118/77 118/77 Blood Pressure Mean 90 Blood Pressure Source Monitor Blood Pressure Position Sitting Blood Pressure Location Right Arm Pulse Ox 100 100 Oxygen Delivery Method Room Air Weight Weight: 213 lb 13.574 oz Body Mass Index (BMI) 29.8 Physical Exam Const alert General Appearance: cooperative HEENT normocephalic Eyes PERRL and EOMs intact bilaterally Neck supple, no JVD and no carotid bruits Resp normal respiratory effort, normal air movement and clear to auscultation bilaterally Cardio regular rate and regular rhythm GI normal to inspection, nondistended, normoactive bowel sounds, non-tender and non-distended Extremity normal capillary refill General Extremity: Negative for edema Skin no rashes or lesions noted General Skin Exam: no breakdown Psych affect normal Appearance: appropriate Assessment & Plan Assessment/Plan (1) Anemia: QUALIFIERS: Anemia type: unspecified type Qualified Code(s): D64.9 - Anemia, unspecified PLAN: 73-year-old gentleman with COPD, hyponatremia status post acute hypoxic respiratory failure needing intubation. Patient was discovered to have a significant iron deficiency anemia. Patient is a patient's agreed to undergo repeat upper endoscopy for evaluation of his anemia. Patient and patient's were explained alternatives, risk, benefits include not withstanding bleeding, infection, sepsis, perforation, need for emergent urgent . He will have an ASA of 3.
--- NOTE | 2024-04-15 13:00 | IMM_PTH ---
PATIENT: MARK MUÑIZ LOC: EN U#:[id number] AGE/SX: 74/M ROOM: RE04/15/[address]: Dr. Jayesh Gómez DO : 1950 BED: DIS: 04/15/2024 SPEC #: [id number] RECD: 04/16/24 11:24 STATUS: URIEL REQ #: [id number] SHANNAN: 04/15/24 13:[address]: Jayesh Gómez DEPT: IMMUNOHISTOCHEMISTRY RECD BY: Darrel Villalta ENTERED: 04/16/24 11:24 SP TYPE: IMMUNO MAILE DR: [facility] Tissues: B - Gastric mucous membrane Procedures: H Pylori (initial) PHYSICIAN & INSTITUTION [place] [id number] SPECIMEN INFORMATION: Tissue Source: B- Gastric antrum Clinical Info: Anemia Specimen Number: [id number] CPT code: 78024 METHODOLOGY: Deparaffinized sections of prefer/formalin-fixed tissue or PAP/DQ stained slides are incubated with monoclonal/polyclonal antibodies/oligonucleotide probes. Localization is made via biotin free immunoperoxidase method. Appropriate controls are performed and reacted as expected. Results on target cell population are indicated in the following table: RESULTS: ANTIBODY / CLONE RESULT Block B H Pylori (polyclonal) negative These tests were developed and their performance characteristics determined by [facility]. They may not have been cleared or approved by the U.S. Food and Drug Administration. The FDA has determined that such clearance or approval is not necessary. The above immunohistochemical/dualISH markers are ordered and reviewed by the Pathologist. INTERPRETATION: B. Gastric antrum, biopsy: Negative for Helicobacter pylori organisms. 04/17/2024
--- NOTE | 2024-04-15 13:00 | EGD_PTH ---
PATIENT: MARK MUÑIZ LOC: EN U#:[id number] AGE/SX: 74/M ROOM: RE04/15/[address]: Dr. Jayesh Gómez DO : 1950 BED: DIS: 04/15/2024 SPEC #: [id number] RECD: 04/16/24 07:28 STATUS: URIEL REGuerrero #: [id number] SHANNAN: 04/15/24 13:[address]: Jayesh Gómez DEPT: SURGICAL PATHOLOGY RECD BY: Mila Tyler ENTERED: 04/16/24 11:26 SP TYPE: EGD BIOPSY MAILE DR: [facility] Tissues: A - Duodenum, NOS B - Gastric mucous membrane Procedures: Surgery Specimen Level IV HEADER OPERATION: EGD with biopsy PRE-OP DIAGNOSIS: Anemia TISSUE SUBMITTED: A- Duodenum biopsy, B- Gastric antrum biopsy MICROSCOPIC DIAGNOSIS A. Duodenum, biopsy: A fragment of duodenal mucosa, no pathologic diagnosis. B. Gastric antrum, biopsy: Chronic active gastritis. SJ. 04/17/2024 COMMENT B. The results of immunohistochemistry for Helicobacter pylori will be reported separately ([id number]). MICROSCOPIC DESCRIPTION Slides are reviewed. GROSS DESCRIPTION A. Received in fixative is one container labeled with the patient's name and designated Duodenum biopsy. The specimen consists of one irregular fragment of light mejia soft tissue that measures 0.4 x 0.3 x 0.1 cm. The specimen is totally submitted in one cassette. B. Received in fixative is one container labeled with the patient's name and designated Gastric antrum biopsy. The specimen consists of two irregular fragments of light mejia soft tissue that in aggregate measure 0.6 x 0.3 x 0.1 cm. The specimen is totally submitted in one cassette. NICOLE. 04/16/2024 TC:2 CPT:45706t4
--- NOTE | 2024-04-15 13:32 | OP.CCLET_ITS ---
04/15/2024 [facility] Re : Upper GI endoscopy procedure for Mark [facility] This procedure was performed on Monday, April 15, 2024. My impressions and recommendations are as follows: Impressions : - No gross lesions in the entire esophagus. - Medium-sized hiatal hernia. - Chronic gastritis. Biopsied. - Erythematous duodenopathy. Biopsied. Recommendations : - Await pathology results. - Continue present medications. My findings are described in the full procedure note, which is enclosed. If I can be of further assistance, please feel free to contact me at . Sincerely, Jayesh Gómez, 04/15/2024 1:31:55 PM This report has been signed electronically.
--- NOTE | 2024-04-15 13:32 | OP.EGD_ITS ---
Patient Name: Mark Triana Procedure Date: 04/15/2024 1:04 PM Date of : 1950 Age: 74 Procedure: Upper GI endoscopy Indications: Epigastric abdominal pain Providers: Jayesh Gómez DO Medicines: Monitored Anesthesia Care Complications: No immediate complications. Procedure: Pre-Anesthesia Assessment: - Prior to the procedure, a History and Physical was performed, and patient medications and allergies were reviewed. The patient is competent. The risks and benefits of the procedure and the sedation options and risks were discussed with the patient. All questions were answered and informed consent was obtained. Patient identification and proposed procedure were verified by the physician in the pre-procedure area. Mental Status Examination: alert and oriented. Airway Examination: normal oropharyngeal airway and neck mobility. Respiratory Examination: clear to auscultation. CV Examination: normal. Prophylactic Antibiotics: The patient does not require prophylactic antibiotics. Prior Anticoagulants: The patient has taken no anticoagulant or antiplatelet agents except for NSAID medication. ASA Grade Assessment: II - A patient with mild systemic disease. After reviewing the risks and benefits, the patient was deemed in satisfactory condition to undergo the procedure. The anesthesia plan was to use monitored anesthesia care (MAC). Immediately prior to administration of medications, the patient was re-assessed for adequacy to receive sedatives. The heart rate, respiratory rate, oxygen saturations, blood pressure, adequacy of pulmonary ventilation, and response to care were monitored throughout the procedure. The physical status of the patient was re-assessed after the procedure. After obtaining informed consent, the endoscope was passed under direct vision. Throughout the procedure, the patient's blood pressure, pulse, and oxygen saturations were monitored continuously. The Endoscope was introduced through the mouth, and advanced to the second part of duodenum. The upper GI endoscopy was accomplished without difficulty. The patient tolerated the procedure well. Scope In: 1:19:02 PM Scope Out: 1:23:01 PM Total Procedure Duration Time 0 hours 3 minutes 59 seconds Findings: No gross lesions were noted in the entire esophagus. A medium-sized hiatal hernia was present. Localized moderate inflammation characterized by erosions, erythema and friability was found in the gastric antrum. Biopsies were taken with a cold forceps for histology. Verification of patient identification for the specimen was done. Estimated blood loss was minimal. Biopsies were taken with a cold forceps for Helicobacter pylori testing. Verification of patient identification for the specimen was done. Estimated blood loss was minimal. Patchy mildly erythematous mucosa without active bleeding and with no stigmata of bleeding was found in the duodenal bulb. Biopsies for histology were taken with a cold forceps for evaluation of celiac disease. Impression: - No gross lesions in the entire esophagus. - Medium-sized hiatal hernia. - Chronic gastritis. Biopsied. - Erythematous duodenopathy. Biopsied. Recommendation: - Await pathology results. - Continue present medications. Procedure Code(s): --- Professional --- 89438, Esophagogastroduodenoscopy, flexible, transoral; with biopsy, single or multiple CPT copyright 2021 [employer]. All rights reserved. The codes documented in this report are preliminary and upon collar feller review may be revised to meet current compliance requirements. Jayesh Gómez DO 04/15/2024 1:31:55 PM This report has been signed electronically. Number of Addenda: 0 Note Initiated On: 04/15/2024 1:04 PM
[2024-04-15 13:35] VITALS: BP 118/77; BP 79/67; PULSE 65; RESP 16; TEMP 36.4; O2SAT 97
--- NOTE | 2024-04-15 13:39 | PCM.POST.ANE ---
Anesthesia: Postop Eval I Current Vital Signs Temperature: 97.6 F Pulse Rate: 67 Blood Pressure: 79/67 Respiratory Rate: 14 Pulse Ox: 98 Oxygen Delivery Method: Room Air Assessment Airway patent: Yes Spontaneous unlabored respirations: Yes Mental status: Awake and Calm nausea: No Vomiting: No Anesthesia Complication: No Fluid Hydration Crystalloid volume administer (ml): 30 Total IV fluid infused: 30 Progress Note Anesthesia document: Postop Eval 1 completed: Yes
[2024-04-15 13:40] VITALS: BP 118/77; BP 79/67; BP 92/75; PULSE 67; PULSE 69; RESP 14; RESP 16; TEMP 36.4; O2SAT 95; O2SAT 98
[2024-04-15 13:45] VITALS: BP 104/58; BP 118/77; PULSE 68; RESP 16; TEMP 36.2; O2SAT 96
[2024-04-15 14:06] VITALS: BP 118/77
--- NOTE | 2024-04-15 18:52 | PCM.POSTANE2 ---
Anesthesia Postop Eval I Sum Postop Eval Completion status Anesthesia document: Postop Eval 1 completed: Yes Anesthesia Postop Eval I Summary Anesthesia Postop Eval I Summary: Anesthesia Postop Eval I: Assessment Summary Airway patent Yes 04/15/24 13:40 [email or web address] Spontaneous unlabored Yes 04/15/24 13:40 [email or web address] respirations Mental status Awake,Calm 04/15/24 13:40 [email or web address] nausea No 04/15/24 13:40 [email or web address] Vomiting No 04/15/24 13:40 [email or web address] Anesthesia Postop Eval I: Fluid Summary Crystalloid volume administer 30 04/15/24 13:40 [email or web address] (ml) Colloids volume administered ( ml) Blood Product volume administered (ml) Total IV fluid infused 30 04/15/24 13:40 [email or web address] Anesthesia Postop Eval I: Summary Notes Anesthesia Complication No 04/15/24 13:40 [email or web address] Anesthesia Complication Comment: Post-operative progress note Anesthesia: Postop Eval II Evaluation Mental status: Awake Pain Level: 0 nausea: No Vomiting: No
== END 2024-04-15 14:08 | disposition home or self-care (01) ==
LOC: EN 11:35 → AC 11:36
PROVIDERS: Visit Provider Internal Medicine Gastroenterology
PROC: 0DJ08ZZ Inspection of Upper Intestinal Tract, Via Natural or Artificial Opening Endoscopic (ICD-10-PCS; CPT 43235; principal; 2024-04-15 12:55)
DX: K29.50 Unspecified chronic gastritis without bleeding (principal); J44.9 Chronic obstructive pulmonary disease, unspecified; K25.9 Gastric ulcer, unspecified as acute or chronic, without hemorrhage or perforation; K44.9 Diaphragmatic hernia without obstruction or gangrene; Z79.01 Long term (current) use of anticoagulants; D64.9 Anemia, unspecified; E87.1 Hypo-osmolality and hyponatremia; E78.5 Hyperlipidemia, unspecified; F17.210 Nicotine dependence, cigarettes, uncomplicated; I10 Essential (primary) hypertension; Z79.899 Other long term (current) drug therapy
CPT/HCPCS: 43239; 88305; 88342; J2405

== ENCOUNTER → 2025-03-11 | Outpatient (CLI) | payer OTHER, SELFPAY ==
--- NOTE | 2025-03-11 16:08 | CT_ITS ---
PROCEDURE: LOW DOSE CT LUNG SCREENING 03/11/2025 REASON FOR EXAM: SCREEN/FORMER SMOKER Patient has smoked 1 pack per day for 55 years. TECHNIQUE: Procedure Code: [id number] Modality: CT Procedure: LOW DOSE CT LUNG SCREENING Coronal and Sagittal reconstruction series were provided. One or more dose reduction techniques were used (e.g., Automated exposure control, adjustment of the mA and/or kV according to patient size, use of iterative reconstruction technique). REFERENCE LINK: [employer] Lung-RADS RADIATION DOSE SUMMARY: CTDlvol: 4.02 mGy DLP: 147.48 mGycm COMPARISON: July 27, 2023. FINDINGS: PULMONARY NODULES: (Only nodules >3mm are reported) Nodules described below are on series 1 unless otherwise specified. Pulmonary Nodules: Stable 2 mm noncalcified nodule in the peripheral lateral aspect of the right upper lobe as seen on axial image number 51. Stable partially calcified 5 mm nodule in the anterior lateral aspect of the left upper lobe as seen on axial image number 62. Stable 7 mm nodule in the left upper lobe as seen on axial image number 102. Hardware:None Lymph Nodes:No suspicious lymph nodes are seen. Heart and Vasculature:The heart is nonenlarged.Atherosclerotic calcifications of the thoracic aorta. Thoracic aorta and pulmonary arteries have normal contours; noncontrast technique limits evaluation. Coronary Artery Calcifications: Present Lungs and Airways: No focal infiltrate or mass lesion. Pleura:Unremarkable Upper Abdomen:Unremarkable Bones:Degenerative changes of the thoracic spine. CT/Low Dose CT Lung Screening IMPRESSION: Stable examination. Coronary artery calcification (CAC) is is present Lung-RADS Category: 2 BENIGN (BASED ON IMAGING FEATURES OR INDOLENT BEHAVIOR). RECOMMEND 12-MONTH SCREENING LDCT. Other Significant Findings: Reading Location: [id number]
== END | disposition home or self-care (01) ==
LOC: CT 16:03
PROVIDERS: Referring Provider Nurse Practitioner Adult Health; Visit Provider Nurse Practitioner Adult Health
DX: Z12.2 Encounter for screening for malignant neoplasm of respiratory organs (principal)
CPT/HCPCS: 71271